=== PATIENT | female | born 1940 | race African-American/Black ===

== ENCOUNTER 2023-05-18 08:13 | Emergency (ER) | payer MEDICARE, SELFPAY ==
[2023-05-18 08:24] VITALS: BP 167/63; PULSE 75; RESP 18; TEMP 36.1; O2SAT 98; BMI 23.2
--- NOTE | 2023-05-18 08:45 | ED.GENADULT ---
HPI - General Adult General Chief complaint: General Medical Stated complaint: High BP Time Seen by Provider: 05/18/23 08:34 Source: patient, family, RN notes reviewed and old records reviewed Mode of arrival: ambulatory History of Present Illness HPI narrative: 82-year-old female with past medical history MS presenting to ED with daughter complaining of elevated BP sent home over the past 2 weeks. Patient denies history of hypertension or previously being prescribed antihypertensives. Reports bilateral LE paresthesias and chronic visual changes suspected from her MS per patient. Denies headache, visual loss, CP/SOB, new or worsening pedal edema, recent illness Related Data Previous Rx's Medication Instructions Recorded amlodipine 2.5 mg tablet (Norvasc) 2.5 mg PO DAILY #30 tabs 05/18/23 Allergies Allergy/AdvReac Type Severity Reaction Status Date / Time acetaminophen [Tylenol] Allergy Unknown Unknown Verified 05/18/23 08:23 shellfish derived Allergy Anaphylaxis Verified 05/18/23 08:23 Compazine Allergy Unknown Unknown Uncoded 05/18/23 08:23 Review of Systems Review of Systems: Constitutional: No Fever, No Chills ENT/Mouth: +acute on chronic visual changes, No Ear Pain, No sore throat, No Rhinorrhea, No Swallowing Difficulty Cardiovascular: No Chest Pain, No SOB Respiratory: No Cough, No Sputum, No Wheezing Gastrointestinal: No Nausea, No Vomiting, No Diarrhea, No Constipation, No Abdominal pain Genitourinary: No Dysuria, No Urinary Frequency, No Hematuria Musculoskeletal: No joint pain, No Myalgias, No Joint Swelling Skin: No Skin Lesions, No rash Neuro: No Weakness, No Numbness, +Paresthesias Yes all other systems are reviewed and are negative Constitutional: Constitutional: Reports as per HPI Neurologic: Denies Abnormal speech present [facility] Past Medical History Attestation statement: The following information was validated with the patient. Source: old records reviewed Physical Exam ED Vital Signs: Vital Signs - 24 hr 05/18/23 08:24 05/18/23 11:14 05/18/23 13:04 Temperature 97.0 F Pulse Rate 75 60 65 Respiratory Rate 18 14 18 Blood Pressure 167/63 H 152/76 H 176/72 H Pulse Oximetry 98 100 Oxygen Delivery Method Room Air Room Air BMI result Body Mass Index 23.2 Const General: cooperative, healthy appearing and no acute distress Orientation/consciousness: patient oriented x3 Limitations: no limitations HENMT Head: Yes normal to inspection and Yes atraumatic Ears: hearing grossly normal bilaterally General nose exam: Normal external nose present Face and sinus: Yes normal facial exam Eyes General: appearance normal, both eyes and all related structures Pupils: Equal, round and reactive pupils present EOM: EOMs intact bilaterally Neck Neck: Yes normal visual inspection and Yes no meningeal signs Resp Effort & Inspection: normal respiratory effort and no respiratory distress Auscultation: clear to auscultation bilaterally Cardio Rate: regular rate Heart sounds: S1 normal heart sound present and S2 normal heart sound present GI Inspection: Yes normal to inspection Palpation (GI): Soft to palpation, nontender, no guarding and not rigid Skin Rashes: no rashes Wounds: no wounds Neuro General: patient oriented x3, tone normal, moves all extremities, no meningeal signs, no focal motor deficits and CN's II-XI intact bilaterally Cranial nerves: Yes CN's II-XII intact bilaterally and Yes Equal, round and reactive pupils present Cognition (Neuro): normal cognition Speech: No Abnormal speech present Gait exam (Neuro): Normal gait present Motor exam (neuro): 5/5 motor strength present throughout Extrem Other: 1+ bilateral LE pitting edema Course Course Course Narrative: -1156-chronic anemia, improved from priors. Labs otherwise reassuring. Troponin negative. BNP 170, no priors to compare. > most recent blood pressure 176/72 > discussed with patient and family at bedside that the emergency room initiating blood pressure medications is not ideal and should have close follow-up with PCP. However with shared decision making family and patient would like to be started on low-dose of blood pressure medication today due to their concerns and will call PCP for follow-up. Will start patient on low-dose, 2.5 mg of Norvasc daily. Discussed close blood pressure monitoring Results discussed with patient including worrisome signs and symptoms and strict return precautions, and when to return to the emergency department. They verbalized understanding and feel safe for discharge at this time. Medical Decision Making Medical Decision Making [facility] Narrative: 82-year-old female with past medical history MS presenting to ED with daughter complaining of elevated BP sent home over the past 2 weeks. On exam mildly hypertensive 167/63 in triage, NAD, nontoxic appearing, 1+ bilateral LE pitting edema, lungs CTA, no focal neuro deficits. Concern for chronic hypertension. Rule out ACS. Low suspicion for ICH/hemorrhage or CVA/TIA Plan: EKG, labs, repeat monitor blood pressure Please refer to course for remaining clinical decision making, interpretation of labs/imaging results, and discussions with consultants and/or family members. Differential Diagnosis Differential Diagnoses: The differential diagnosis associated with the presentation includes As above Admission/Observation Consideration of admission/observation: Escalation of care including admission/observation considered Lab Data MDM Lab Attestation statement: I reviewed the patient's lab results. 05/18/23 10:41 05/18/23 10:41 Labs: Lab Results 05/18/23 Range/Units 10:41 WBC 5.0 (4.8-10.8) X10*3/uL RBC 3.44 L D (4.20-5.50) X10*6/uL Hgb 10.5 L D (12.0-16.0) g/dl Hct 31.6 L D (37.0-47.0) % MCV 91.9 (80.0-98.0) fL MCH 30.5 (27.0-33.0) pg MCHC 33.2 (31.0-35.0) g/dl RDW 14.9 (11.0-16.0) % Plt Count 248 D (160-400) X10*3/uL MPV 10.0 (9.4-12.3) fL Immature Gran % (Auto) 0.2 (0.0-0.4) % Neut % (Auto) 63.3 (45-73) % Lymph % (Auto) 21.4 (20-40) % Anderson % (Auto) 8.5 (2-11) % Eos % (Auto) 6.0 H (0-4) % Baso % (Auto) 0.6 (0-2) % Lymph # (Auto) 1.1 L (1.2-4.9) X10*3/uL Anderson # (Auto) 0.4 (0.1-1.2) X10*3/uL Eos # (Auto) 0.3 (0.0-0.4) X10*3/uL Baso # (Auto) 0.0 (0.0-0.2) X10*3/uL Abs Immat Gran (auto) 0.01 (0.00-0.03) X10*3/uL Absolute Neuts (auto) 3.2 (2.0-8.3) x10*3/uL Absolute Nucleated RBC 0.000 (0.0-0.012) X10*3/uL Nucleated RBC % (auto) 0.0 (0.0-0.2) /100WBC PT 12.0 (11.1-13.3) SEC INR 1.0 (0.9-1.1) Sodium 141 (135-145) mmol/L Potassium 4.3 (3.3-5.1) mmol/L Chloride 109 H (96-108) mmol/L Carbon Dioxide 26 (22-29) mmol/L Anion Gap 10 L (12-20) BUN 20 H (9-16) mg/dL Creatinine 0.87 (0.5-1.4) mg/dL Estim Creat Clear Calc 48.3 Estimated GFR > 60 Random Glucose 100 (60-115) mg/dL Calcium 8.6 (8.4-10.2) mg/dL Magnesium 2.1 (1.6-2.6) mg/dL Total Bilirubin 0.7 (0.0-1.0) mg/dL Direct Bilirubin 0.3 (0.0-0.5) mg/dL AST 20 (5-31) U/L ALT 12 (0-31) U/L Alkaline Phosphatase 120 H (39-117) U/L Troponin I High Sens < 2.7 (<3.5-17.0) ng/L B-Natriuretic Peptide 170 H (<100) pg/mL Total Protein 5.8 L (6.5-8.0) g/dL Albumin 3.4 L (3.5-5.0) g/dL Independent Interpretation I performed an independent interpretation of an: EKG Radiology Impression Discussion of test interpretation with radiology: I have reviewed the radiologist's reading. External Record Review External record reviewed: Inpatient record, Office record, Outpatient record, Prior outpatient labs, Prior outpatient radiology, Primary care record and Outside ED record Tests considered The following testing was considered but not selected: Head CT considered however not deemed necessary at this time without headache or neuro deficits Chronic Conditions Patient?s care impacted by: Other (MS) Discharge Plan Discharge Clinical Impression: HTN (hypertension) Patient Disposition: Home, Self-Care Instructions: Hypertension (ED) Additional Instructions: Your blood work was reassuring. Her blood pressure is elevated, YOU NEED TO HAVE CLOSE FOLLOW-UP WITH YOUR PRIMARY CARE DOCTOR Norvasc is a blood pressure medication, take once daily as prescribed Please monitor your blood pressure closely at home If he developed any chest pain, shortness of breath, lightheadedness/dizziness, or passing-out episodes return to the ED immediately Prescriptions: New amlodipine [Norvasc] 2.5 mg tablet 2.5 mg PO DAILY Qty: 30 0RF Referrals: Physician,Unknown J [Primary Care Provider] - 3 days Interventions: ED Discharge Assessment Last Done: 05/18/23 13:03 Discharge Date/Time: 05/18/23 13:04
--- NOTE | 2023-05-18 08:53 | ECG_ITS ---
Test Reason : HTN Blood Pressure : / mmHG Vent. Rate : 060 BPM Atrial Rate : 060 BPM P-R Int : 136 ms QRS Dur : 068 ms QT Int : 412 ms P-R-T Axes : 072 -15 008 degrees QTc Int : 412 ms Baseline artifact Normal sinus rhythm Low voltage QRS Borderline ECG No previous ECGs available Referred By: Marion Tobin Electronically Signed By:CHICO YING MD
[2023-05-18 10:50] LABS: MANUAL DIFF FLAG NO
[2023-05-18 10:52] LABS: Basophils Percent Auto 0.6 % (0-2); Eosinophils Absolute Auto 0.3 X10*3/uL (0.0-0.4); Hematocrit 31.6 % (37.0-47.0); Hemoglobin 10.5 g/dl (12.0-16.0); Imm Gran Abs Auto 0.01 X10*3/uL (0.00-0.03); Imm Gran Pct Auto 0.2 % (0.0-0.4); Lymphocytes Absolute Auto 1.1 X10*3/uL (1.2-4.9); Lymphocytes Percent Auto 21.4 % (20-40); Mean Corpuscular HGB Conc 33.2 g/dl (31.0-35.0); Mean Corpuscular Hemoglobin 30.5 pg (27.0-33.0); Mean Corpuscular Volume 91.9 fL (80.0-98.0); Monocytes Absolute Auto 0.4 X10*3/uL (0.1-1.2); Monocytes Percent Auto 8.5 % (2-11); Neutrophils Absolute Auto 3.2 x10*3/uL (2.0-8.3); Neutrophils Percent Auto 63.3 % (45-73); Platelet Count 248 X10*3/uL (160-400); Red Blood Count 3.44 X10*6/uL (4.20-5.50); Red Cell Distribution Width 14.9 % (11.0-16.0)
[2023-05-18 11:14] VITALS: BP 152/76; PULSE 60; RESP 14; O2SAT 100
[2023-05-18 11:20] LABS: Alanine Aminotransferase 12 U/L (0-31); Albumin Level 3.4 g/dL (3.5-5.0); Alkaline Phosphatase 120 U/L (39-117); Anion Gap 10 (12-20); Aspartate Amino Transferase 20 U/L (5-31); Bilirubin Direct 0.3 mg/dL (0.0-0.5); Bilirubin Total 0.7 mg/dL (0.0-1.0); Blood Urea Nitrogen 20 mg/dL (9-16); Calcium 8.6 mg/dL (8.4-10.2); Carbon Dioxide 26 mmol/L (22-29); Chloride 109 mmol/L (96-108); Creatinine Clr Calc Pharmacy 48.3; Estimated Glomerular Filt Rate > 60; Glucose Random 100 mg/dL (60-115); Magnesium 2.1 mg/dL (1.6-2.6); Potassium 4.3 mmol/L (3.3-5.1); Sodium 141 mmol/L (135-145); Total Protein 5.8 g/dL (6.5-8.0)
[2023-05-18 11:23] LABS: Troponin-I High Sensitivity < 2.7 ng/L (<3.5-17.0)
[2023-05-18 11:24] LABS: B Type Natriuretic Peptide 170 pg/mL (<100)
[2023-05-18 13:04] VITALS: BP 176/72; PULSE 65; RESP 18
== END 2023-05-18 13:04 | disposition home or self-care (01) ==
PROVIDERS: Physician Assistant; Emergency Provider Emergency Medicine Emergency Medical Services
DX: I10 Essential (primary) hypertension (principal); R20.2 Paresthesia of skin; R60.0 Localized edema; G35 Multiple sclerosis
CPT/HCPCS: 36415; 80048; 80076; 83735; 83880; 84484; 85025; 85610; 93005; 99284

== ENCOUNTER → 2023-05-18 08:53 | Outpatient (BNV) | payer MEDICARE, SELFPAY | PROVIDERS: Emergency Provider Emergency Medicine Emergency Medical Services; Visit Provider Internal Medicine Cardiovascular Disease | DX: I10 Essential (primary) hypertension (principal) | CPT/HCPCS: 93010 ==

== ENCOUNTER 2023-07-05 15:07 | Outpatient (REF) | payer MEDICARE, OTHER, SELFPAY | END 2023-07-05 15:08 | disposition home or self-care (01) | LOC: HO.SH 15:07 | PROVIDERS: PCP Internal Medicine; Visit Provider Physician Assistant Medical | DX: Z01.118 Encounter for examination of ears and hearing with other abnormal findings (principal); H61.23 Impacted cerumen, bilateral | CPT/HCPCS: 92567 ==

== ENCOUNTER 2023-08-10 08:32 | Outpatient (REF) | payer MEDICARE, OTHER, SELFPAY | END 2023-08-10 08:33 | disposition home or self-care (01) | LOC: HO.SH 08:32 | PROVIDERS: PCP Internal Medicine; Visit Provider Physician Assistant Medical | DX: Z01.10 Encounter for examination of ears and hearing without abnormal findings (principal); H90.3 Sensorineural hearing loss, bilateral | CPT/HCPCS: 92557; 92567 ==

== ENCOUNTER 2023-11-16 14:09 | Outpatient (REF) | payer MEDICARE, OTHER, SELFPAY ==
--- NOTE | 2023-12-20 13:49 | MHC.AU.HA1 ---
Hearing Aid Evaluation Date of Visit: 11/16/23 Printed Circuit Designer Used: Historical Information: Description of Hearing: Normal to moderate sensorineural hearing loss bilaterally Summary: Deloris is here for hearing aid discussion after seeing Dr Gonzalez for asymmetric hearing and receiving medical clearance for amplification. She is very motivated to pursue hearing aids as she finds herself asking people to repeat things and recalls the difficulties her mother faced with hearing aids later in life, she wishes to take a proactive approach. Discussed styles and technologies, Deloris selected Oticon Intent 2 miniRITE R. She was not able to decide on color in the office, opted to take the brochure home to show her niece and will call to let me know what color she would like to order. Hearing Aid Prescription: Based on the individual?s shared listening needs, communication environments, dexterity, desire for connectivity, and personal preferences, the following prescription for amplification has been made: Right ear: Make, Model, Color: Oticon Intent 2 miniRITE R Battery Size: Rechargeable Rail Car Repairer/Slim Tube: 2 85g Type of Earmold/Dome/CShell/SlimTip: 6mm dbl whittington Left ear: Left ear prescription to be same as Right Hearing Aid above: Make, Model, Color: Oticon Intent 2 miniRITE R Battery Size: Rechargeable Rail Car Repairer/Slim Tube: 2 85g Type of Earmold/Dome/CShell/SlimTip: 6mm dbl whittington Accessories/Assistive Technology Recommended: Welder Apprentice Arc Plan of Care: Patient wishes to purchase hearing aids as prescribed Action Taken/Action Needed: Hearing Instrument Fitting to be scheduled when materials arrive Comments: Will order aids once patient calls with color decision Primary Diagnosis: H90.3 Bilateral Sensorineural Hearing Loss Signature: Provider: Domonique Temple, CCC-A
== END 2023-11-16 14:10 | disposition home or self-care (01) ==
LOC: HO.HAP 14:09
PROVIDERS: Visit Provider Internal Medicine
DX: Z46.1 Encounter for fitting and adjustment of hearing aid (principal); H90.3 Sensorineural hearing loss, bilateral
CPT/HCPCS: 92590

== ENCOUNTER 2025-02-26 09:39 | Outpatient (AMB) | payer MEDICARE, OTHER, SELFPAY ==
--- OUTSIDE RECORDS SUMMARY | 2024-03-04 15:05 | XMS_ITS | Encounter Summary ---
Author Organization [facility] [place] [address] Care Team Providers Care Designer And Patternmaker Name Role Phone Jorge Sage Primary Care Provider [phone] Encounter Details Date Type Department Care Team (Late st Contact Info) Description 03/04/2024 3:05 PM EDT Hospital Encounter TH HISTORIC ENCOUNTERS EASTERN CONVERSION ONLY Alexi Davidson MD [address] [place] [phone] Social History Tobacco Use Types Packs/Day [...] for your loved ones. For example, child and adolescent psychiatrist or elderly care for an older adult? [...] Care Team (Late st Contact Info) Description 03/05/2025 2:30 PM EDT Office Visit [facility] Hematology Oncology [address] [place] [phone] Alexi Davidson MD [address] [place] [address] 07/08/2025 10:45 AM EST Office Visit Adult [address] [address] Jorge Sage PA [address] [place] [address] documented as of this encounter Procedures Procedure [...] documented as of this encounter Care Teams Designer And Patternmaker Relationship Specialty Start Date End Date Jorge Sage PA PCP - General Internal Medicine 07/26/20 06/05/24 documented as of this encounter
--- OUTSIDE RECORDS SUMMARY | 2024-09-05 10:15 | XMS_ITS ---
Author Organization [facility] Address [address] [facility] [address] [place] [address] Care Team Providers Care Blood Bank Supervisor Name Role Phone Jorge Al Primary Care Provider Unavail TIFFANY Cannon Unavailable [phone] REASON FOR VISIT 3-4 month Encounters Encounter Location Date Provider Diagnosis [facility] [address] [facility] [address] [place] [address] 09/05/2024 TIFFANY GORDILLO Plan Of Treatment Next Appt Details Provider Name:TIFFANY GORDILLO, 06/08/2025 11:00:00 AM, [address] [facility] [address], [place], [address], Progress Notes * Daphne MESA:1940 (84 yo F)Acc No.[id number]:09/05/2024 Progress Note Patient: Deloris BULLOCK Provider: Carmelita Gordillo DPM :1940 A ge:83 Y S ex:Female Date:09/05/2024 Address:[id number] Pcp:Jorge Al Subjective: * Chief Complaints: * 1 . 3-4 month. * Medical History: Objective: * Vitals: Assessment: Plan: * Treatment: * Billing Information: * Visit Code: * Procedure Codes: * Electronic signature of LORAINE GORDILLO D.P.M on 02/26/2025 at 10:42 AM EDT Sign off status: Pending * Provider: Carmelita Gordillo DPM Date: 0 09/05/2024 Generated for Reuben vaughn/Alysa/Ericka on: 1 10:42 AM EDT
--- OUTSIDE RECORDS SUMMARY | 2024-12-31 09:00 | XMS_ITS ---
Author Organization [facility] Address [address] [facility] [address] [place] [address] Care Team Providers Care Nursing Home Aide Name Role Phone Jorge Al Primary Care Provider Unavail TIFFANY Cannon Unavailable [phone] REASON FOR VISIT 3-4 month Encounters Encounter Location Date Provider Diagnosis [facility] [address] [facility] [address] [place] [address] 12/31/2024 TIFFANY GORDILLO Plan Of Treatment Next Appt Details Provider Name:TIFFANY GORDILLO, 06/08/2025 11:00:00 AM, [address] [facility] [address], [place], [address], Progress Notes * Daphne MESA:1940 (84 yo F)Acc No.[id number]:12/31/2024 Progress Note Patient: Deloris BULLOCK Provider: Carmelita Gordillo DPM :1940 A ge:84 Y S ex:Female Date:12/31/2024 Address:[id number] Pcp:Jorge Al Subjective: * Chief Complaints: * 1 . 3-4 month. * Medical History: Objective: * Vitals: Assessment: Plan: * Treatment: * Billing Information: * Visit Code: * Procedure Codes: * Electronic signature of LORAINE GORDILLO D.P.M on 02/26/2025 at 10:43 AM EDT Sign off status: Pending * Provider: Carmelita Gordillo DPM Date: 0 12/31/2024 Generated for Reuben vaughn/Alysa/Ericka on: 1 10:43 AM EDT
--- OUTSIDE RECORDS SUMMARY | 2025-02-25 14:00 | XMS_ITS | Encounter Summary ---
Author Organization [facility] Address [address] [place] [address] Care Team Providers Care Biochemistry Teacher Name Role Phone Jorge Sage Primary Care Provider [phone] [phone] Reason for Visit * Imaging (Routine) - Authorized Specialty Diagnoses / Procedures Referred By Jonathan hollis Referred To Contact Radiology Diagnoses Encounter for screening mammogram for breast cancer Procedures MG Mammo Digital Screening w Amrik bilrosario MG Mammo Digital Screening w Amrik Jorge Cowart PA [address] [place] [phone] Phone: tel: fax: [facility] Referral ID Status Reason Start Date Expiration Date V isits Requested Visits Authorized [id number] Authorized 03/13/2024 03/13/2025 1 1 Encounter Details Date Type Department Care Team (Latest Contact Info) Description 02/25/2025 2:00 PM EDT - 02/25/2025 11:59 PM EDT Hospital Encounter Radiology Department - [address] [phone] Encounter for screening mammogram for breast cancer Discharge Disposition: Home or Self Care Social History Tobacco Use Types Packs/Day Years [...] Record ed Within the last 3 months, ho w many times did you visit the [...] do you feel lonely or isolated from th ose around you? Never 09/30/2024 Food Risk [...] your loved ones. For example, child care giver or elderly care for an older adult? [...] on file documented as of this encounter Medications at Time of Discharge alendronate (FOSAMAX) 70 mg tablet Take 1 tablet (70 mg total) by mouth every 7 (seven) days. Take in the morning with a full glass of water, on an empty stomach, and do not take anything else by mouth or lie down for the next 30 min. 12 tablet 1 07/03/2024 amLODIPine (NORVASC) 2.5 mg tablet Take 1 tablet (2.5 mg total) by mouth 1 (one) time each day. 90 tablet 1 09/30/2024 ascorbic acid, vitamin C, 500 mg capsule Take by mouth daily. cholecalciferol (VITAMIN D-3) 125 mcg (5,000 unit) capsule Take 1 Tab by mouth daily. ciclopirox (LOPROX) 0.77 % gel Apply to toenails once daily 12/10/2018 cyanocobalamin (VIT B-12) 1,000 mcg tablet extended release ER tablet Take 1 Tab by mouth daily. EPINEPHrine (EpiPen 2-Louis) 0.3 mg/0.3 mL injection Inject 0.3 mg into the muscle as needed for Other (anaphylactic reaction). 2-pack. Fill with whichever brand is covered by insurance. 08/15/2017 EPINEPHrine (neffy) 1 mg/spray (0.1 mL) spray,non-aeroso l Administer 1 mg into affected nostril(s) if needed (anaphylaxis). 1 each 3 12/31/2024 ferrous sulfate 325 mg (65 mg iron) EC tablet Take 1 Tab by mouth daily. 10/16/2017 gabapentin (NEURONTIN) 300 mg capsule Take 1 capsule (300 mg total) by mouth 2 (two) times a day. 180 capsule 1 02/26/2025 hydrocortisone 0.5 % topical cream Apply small amount to affected area, bid 07/27/2023 oxyBUTYnin XL (DITROPAN-XL) 10 mg 24 hr tablet Take 15 mg by mouth. 01/17/2021 triamcinolone (KENALOG) 0.025 % cream Apply thin layer to affected area BID for 2 weeks then stop 30 g 09/30/2024 gabapentin (NEURONTIN) 300 mg capsule Take 1 capsule (300 mg total) by mouth 2 (two) times a day. 180 capsule 1 02/17/2025 documented as of this encounter Discharge Disposition Disposition Code Departure Means Destination Home or Self Care documented in this encounter Plan of Treatment Upcoming Encounters Date Type Department Care Team (Late st Contact Info) Description 03/05/2025 2:30 PM EDT Office Visit [facility] Hematology Oncology [address] [place] [phone] Alexi Davidson MD [address] [place] [phone] 07/08/2025 10:45 AM EST Office Visit Adult Medicine [address] [phone] Jorge Sage PA [address] [place] [phone] Pending Results Name Type Priority Associated Diagnoses Date /Time MG Mammo Digital Screening w Amrik bilat Imaging Routine Encounter for screening mammogram for breast cancer 02/25/2025 2:15 PM EDT Scheduled Orders Name Type Priority Associated Diagnoses Orde r Schedule MG Mammo Digital Screening w Amrik bilat Imaging Routine Encounter for screening mammogram for breast cancer Once for 1 Occurrences starting 02/25/2025 until 02/25/2025 documented as of this encounter Visit Diagnoses Diagnosis Encounter for screening mammogram for breast cancer documented in this encounter Additional Health Concerns Assessment Noted Time PHQ-9 Depression Total Score: 0 10/01/19 9:51 AM EDT A fall risk assessment has been complete d for the patient 09/30/2024 9:51 AM EDT documented as of this encounter Care Teams Biochemistry Teacher Relationship Specialty Start Date End Date Jorge Sage, PA [address] [place] [address] PCP - General Internal Medicine 06/06/24 documented as of this encounter
--- NOTE | 2025-02-26 09:58 | MHC.OFFVIS ---
Intake Visit Reasons: sooner appt pain Allergies acetaminophen (Tylenol) Allergy (Unknown, Verified 05/18/23 08:23) Unknown shellfish derived Allergy (Verified 05/18/23 08:23) Anaphylaxis Compazine Allergy (Unknown, Uncoded 05/18/23 08:23) Unknown HPI Comments Details: 84 y/o woman with chronic multiple sclerosis, in the past treated with Copaxone that was stopped due to lack of any significant progression. She is presenting with fluctuating neurological symptoms potentially related to Multiple Sclerosis. Symptoms have reportedly worsened over the past six to eight weeks, presenting as increased weakness in the left leg, fractured in the past, and bilateral instability. There is a connection between these symptoms and stress due to family health issues, as well as aging. Notably, she recently experienced unexpected familial loss. The patient reports episodes of sudden weakness that require her to sit or lie down for brief periods. Walking on inclines or without a walking aid is challenging, marking mechanical instability of the left knee as a concern. She is worried about potential neurological issues due to these symptoms. The patient continues to manage urinary incontinence with medication, requiring a new prescription. Her iron supplementation leads to gastrointestinal side effects, alternating between taking gel capsules twice weekly and using stool softeners. Care is taken to avoid activities that may destabilize her balance. [facility] Medical History (Updated 02/26/25 @ 10:09 by Fortunato Muller MD) Depression Insomnia Dysthymia Thoracic neuralgia Peripheral neuropathy Chronic fatigue syndrome Spastic bladder Multiple sclerosis Family History (Updated 12/19/24 @ 08:26 by Jeaneth Brantley CMA) Sister Myasthenia gravis Review of Systems Const Details: - Neurological: Reports weakness and instability in the left leg; denies headaches or high temperatures. - Musculoskeletal: Reports mechanical instability of knees, particularly after activities. - Gastrointestinal: Reports constipation with iron supplementation; diarrhea an issue without supplementation. - Genitourinary: Reports urinary incontinence. - Psychological: Reports stress-related symptom exacerbation; denies depression despite familial stress. Physical Exam Neuro Other: Mental Status: Alert and oriented to person, place, and time. Normal attention. Normal spontaneous speech, fluency, and comprehension. No obvious issues with mood and memory. Affect is appropriate. Cranial Nerves: CN II: Visual madsen full to confrontation, visual acuity intact. CN III, IV, : Pupils equal, round, reactive to light and accommodation. Extraocular movements are normal. CN V: Facial sensation is normal. CN VII: Facial movements symmetrical. CN VIII: Hearing intact to bedside conversation is normal. CN IX, X: Palate elevates symmetrically. CN XI: Shoulder shrug and head turn symmetrical. CN XII: Tongue midline without atrophy or fasciculations. Gait: Cautious gait. DTRs are trace in right leg, absent in left. Extrapyramidal: Full facial expressions and blinking. No rigidity. Movements are appropriate with no tremor or abnormality. Speech: Normal; no dysarthria or tremor. Assessment & Plan Assessment & Plan (1) Multiple sclerosis: Comment: MRI brain [facility] at [facility] in October 2023: Mod WM disease suggestive of MS. No DWI or melinda signal. Couple of tiny falcine meningiomas MRI T spine at [facility] in Jun 2015 [facility]: [place] NCV/EMG 02/24/15 MILD AXONAL SENSORY AND MOTOR PERIPHERAL NEUROPATHY. Multiple MRIs of brain in since 2001: MS MRI brain at [facility] in September of 2013: MS. Code(s): G35 - Multiple sclerosis Category: Medical (2) Spastic bladder: Code(s): N32.89 - Other specified disorders of bladder Category: Medical (3) Fatigue: Code(s): R53.83 - Other fatigue Category: Medical Qualifiers: Fatigue type: other Qualified Code(s): R53.83 - Other fatigue Plan Impression: a: Chornic relatively stable MS b: Gait disorder, partly due to MS c: Spastic bladder Rec: a: Use caution and consider using a cane b: Continue oxybutynin 15mg at night During the visit, we discussed the patient's Multiple Sclerosis exacerbation and stress as possible correlates, particularly given recent familial stressors. Mechanical instability of the left knee was addressed, recommending the use of a walking aid. For urinary incontinence, a new prescription was arranged through [facility]. We reviewed the gastrointestinal side effects of iron supplementation and settled on using gel formulations twice weekly. We also discussed the significance of stress management strategies in mitigating exacerbations of symptoms. Medications: New oxybutynin chloride ER 15 mg PO DAILY 90 tabs 1RF Coding Level of Care Code Est Pt Level 4 (07898) Diagnoses Multiple sclerosis G35 Spastic bladder N32.89 Other fatigue R53.83 Fatigue type: other
--- OUTSIDE RECORDS SUMMARY | 2025-02-26 10:42 | XMS_ITS | Encounter Summary ---
Author Organization [facility] Address [address] [place] [address] Care Team Providers Care Fish Liver Sorter Name Role Phone Angus Nevarez MD Primary Care Provider + [phone] Jorge Sage PA-C Primary Care Provider [phone] Encounter Details Date Type Department Care Team Description 11/10/2013 Release of Information Medical Records [address] [place] [address] Abstract, Provider Social History Tobacco Use Types Packs/Day Years Used Date Smoking Tobacco: Former Cigarettes Q uit: 07/26/1970 Alcohol Use Standard Drinks/Week Comments No 0 (1 standard drink = 0.6 oz pur e alcohol) Sex Assigned at Date Recorded Not on file Job Start Date Occupation Industry Not on file Not on file Not on file documented as of this encounter Plan of Treatment Not on file documented as of this encounter Visit Diagnoses Not on filedocumented in this encounter Additional Health Concerns Infection Onset Date Last Indicated Resolved Time COVID-19 Comment:Tested positive on 06/0706/07/2022 06/12/2022 08/24/19 23 10:28 AM EDT documented as of this encounter Care Teams Fish Liver Sorter Relationship Specialty Start Date End Date Angus Nevarez MD [address] [place] [address] PCP - General 02/17/1997 07/25/20 Jorge Sage PA-C [address] [place] [address] PCP - General Internal Medicine 07/26/20 documented as of this encounter
--- OUTSIDE RECORDS SUMMARY | 2025-02-26 10:42 | XMS_ITS | Encounter Summary ---
Author Organization [facility] Address [address] [place] [address] Care Team Providers Care Cannon Pinion Adjuster Name Role Phone Jorge Sage PA-C Primary Care Provider +1 [phone] Reason for Visit * Reason Onset Date Comments REFERRAL 10/17/2021 Encounter Details Date Type Department Care Team Description 10/17/2021 Telephone OBGYN - [place] [address] [place] [address] Isidra Mcfadden MD [address] [place] [address] REFERRAL Social History Tobacco Use Types Packs/Day Years Used Date Smoking Tobacco: Former Cigarettes 0.8 10 0 1960 - 07/26/1970 Smokeless Tobacco: Never Alcohol Use Standard Drinks/Week Comments No 0 (1 standard drink = 0.6 oz pur e alcohol) Sex Assigned at Date Recorded Not on file Job Start Date Occupation Industry Not on file Not on file Not on file COVID-19 Exposure Response Date Recorded In the last 10 days, have yo u been in contact with someone who was confirmed or suspected to have Coronavirus/COVID-19? No / Unsure 10/10/2021 9:04 AM EDT documented as of this encounter Miscellaneous Notes * Telephone Encounter - Jorge Sage PA-C - 10/17/2021 4:04 PM EDT Noted. * Telephone Encounter - Sheba Russo - 10/17/2021 3:39 PM EDT We have attempted to contact the patient in regards to a referral placed on your patient's behalf. The patient has not responded to our phone calls or letter that was sent to her mailing address. Dueto lack of response the order will be closed documented in this encounter Plan of Treatment Not on file documented as of this encounter Visit Diagnoses Not on filedocumented in this encounter Additional Health Concerns Infection Onset Date Last Indicated Resolved Time COVID-19 Comment:Tested positive on 06/0706/07/2022 06/12/2022 08/24/19 10:28 AM EDT documented as of this encounter Care Teams Cannon Pinion Adjuster Relationship Specialty Start Date End Date Jorge Sage PA-C [address] [place] [address] PCP - General Internal Medicine 07/26/20 documented as of this encounter
--- OUTSIDE RECORDS SUMMARY | 2025-02-26 10:42 | XMS_ITS | Encounter Summary ---
Author Organization [facility] Address [address] [place] [address] Care Team Providers Care Drag Out Man Name Role Phone Angus Nevarez MD Primary Care Provider + [phone] Jorge Sage PA-C Primary Care Provider +[phone] Encounter Details Date Type Department Care Team Description 01/19/2020 [facility] Medical Records [address] [place] [address] Abstract, Provider Social History Tobacco Use Types [...] documented as of this encounter Care Teams Drag Out Man Relationship Specialty Start Date End Date Angus Nevarez MD [address] [place] [address] PCP - General 02/17/1997 07/25/20 Jorge Sage PA-C [address] [place] [address] PCP - General Internal Medicine 07/26/20 documented as of this encounter
--- OUTSIDE RECORDS SUMMARY | 2025-02-26 10:42 | XMS_ITS | Encounter Summary ---
Author Organization [facility] Address [address] [place] [address] Care Team Providers Care Rebrander Name Role Phone Jorge Sage PA-C Primary Care Provider +1 [phone] Encounter Details Date Type Department Care Team Description 12/18/2020 Hospital Medical Records [address] [place] [address] [facility] Social History Tobacco Use Types Packs/Day Years [...] Exposure Response Date Recorded In the last month, have you been in contact with someone who was confirmed or suspected to have Coronavirus / COVID-19? No / Unsure 11/26/2020 8:21 AM EDT documented as of this encounter Plan of Treatment Not on file documented as of this encounter Visit Diagnoses Not on filedocumented in this encounter Additional Health Concerns Infection Onset Date Last Indicated Resolved Time COVID-19 Comment:Tested positive on 06/0706/07/2022 06/12/2022 08/24/19 23 10:28 AM EDT documented as of this encounter Care Teams Rebrander Relationship Specialty Start Date End Date Jorge Sage PA-C [address] [place] [address] PCP - General Internal Medicine 07/26/20 documented as of this encounter
--- OUTSIDE RECORDS SUMMARY | 2025-02-26 10:42 | XMS_ITS | Encounter Summary ---
Author Organization [facility] Address [address] [place] [address] Care Team Providers Care Home Energy Consultant Supervisor Name Role Phone Jorge Sage PA-C Primary Care Provider [phone] Encounter Details Date Type Department Care Team Description 12/12/2020 Hospital Medical Records [address] [place] [address] [facility] Social History Tobacco Use Types [...] documented as of this encounter Care Teams Home Energy Consultant Supervisor Relationship Specialty Start Date End Date Jorge Sage PA-C [address] [place] [address] PCP - General Internal Medicine 07/26/20 documented as of this encounter
--- OUTSIDE RECORDS SUMMARY | 2025-02-26 10:42 | XMS_ITS | Encounter Summary ---
Author Organization [facility] Address [address] [place] [address] Care Team Providers Care Sccm Administrator Name Role Phone Jorge Sage PA-C Primary Care Provider +1 -[phone] Encounter Details Date Type Department Care Team Description 08/27/2021 Hospital Medical Records [address] [place] [address] Angela Samson PA Social History Tobacco Use Types Packs/Day Years [...] documented as of this encounter Care Teams Sccm Administrator Relationship Specialty Start Date End Date Jorge Sage PA-C [address] [place], [place] [phone] PCP - General Internal Medicine 07/26/20 documented as of this encounter
--- OUTSIDE RECORDS SUMMARY | 2025-02-26 10:42 | XMS_ITS | Encounter Summary ---
Author Organization [facility] Address [address] [place] [address] Care Team Providers Care Laborer Prestressed Concrete Name Role Phone Jorge Sage PA-C Primary Care Provider +1 -[phone] Encounter Details Date Type Department Care Team Description 12/15/2020 Hospital Medical Records [address] [place] [address] [facility] Social History Tobacco Use Types Packs/Day Years [...] documented as of this encounter Care Teams Laborer Prestressed Concrete Relationship Specialty Start Date End Date Jorge Sage PA-C [address] [place] [address] PCP - General Internal Medicine 07/26/20 documented as of this encounter
--- OUTSIDE RECORDS SUMMARY | 2025-02-26 10:42 | XMS_ITS | Encounter Summary ---
Author Organization [facility] Address [address] [place] [address] Care Team Providers Care Worm Packer Name Role Phone Angus Nevarez MD Primary Care Provider [phone] Jorge Sage PA-C Primary Care Provider [phone] Encounter Details Date Type Department Care Team Description 04/07/2014 Environmental Remediation Engineer Report Medical Records [address] [place] [address] Fortunato Muller MD Social History Tobacco Use Types Packs/Day Years Used Date Smoking Tobacco: Former Cigarettes Q uit: 07/26/1970 Smokeless Tobacco: Never Alcohol Use Standard [...] documented as of this encounter Care Teams Worm Packer Relationship Specialty Start Date End Date Angus Nevarez MD [address] [place], [place] [id number] PCP - General 02/17/1997 07/25/20 Jorge Sage PA-C [address] [place] [address] PCP - General Internal Medicine 07/26/20 documented as of this encounter
--- OUTSIDE RECORDS SUMMARY | 2025-02-26 10:42 | XMS_ITS | Encounter Summary ---
Author Organization [facility] Address [address] [place] [address] Care Team Providers Care Cardiographer Name Role Phone Angus Nevarez MD Primary Care Provider + [phone] Jorge Sage PA-C Primary Care Provider [phone] Encounter Details Date Type Department Care Team Description 06/19/2016 Business Doc Medical Records [address] [place] [address] Abstract, Provider Social History Tobacco Use Types [...] documented as of this encounter Care Teams Cardiographer Relationship Specialty Start Date End Date Angus Nevarez MD [address] [place] [address] PCP - General 02/17/1997 07/25/20 Jorge Sage PA-C [address] [place] [address] PCP - General Internal Medicine 07/26/20 documented as of this encounter
--- OUTSIDE RECORDS SUMMARY | 2025-02-26 10:42 | XMS_ITS | Encounter Summary ---
Author Organization [facility] Address [address] [place] [address] Care Team Providers Care Truck Body Builder Name Role Phone Angus Nevarez MD Primary Care Provider [phone] Jorge Sage PA-C Primary Care Provider [phone] Encounter Details Date Type Department Care Team Description 03/15/2020 Neighborhood Worker Report Medical Records [address] [place] [address] Social History Tobacco Use Types Packs/Day Years [...] have Coronavirus / COVID-19? No / Unsure 02/18/2020 12:50 PM EDT documented as of this encounter Plan of Treatment Not on file documented as of this encounter Visit Diagnoses Not on filedocumented in this encounter Additional Health Concerns Infection Onset Date Last Indicated Resolved Time COVID-19 Comment:Tested positive on 06/0706/07/2022 06/12/2022 08/24/19 23 10:28 AM EDT documented as of this encounter Care Teams Truck Body Builder Relationship Specialty Start Date End Date Angus Nevarez MD [address] [place] [address] PCP - General 02/17/1997 07/25/20 Jorge Sage PA-C [address] [place] [address] PCP - General Internal Medicine 07/26/20 documented as of this encounter
--- OUTSIDE RECORDS SUMMARY | 2025-02-26 10:42 | XMS_ITS | Encounter Summary ---
Author Organization [facility] Address [address] [place] [address] Care Team Providers Care New Grad Rn Name Role Phone Angus Nevarez MD Primary Care Provider [phone] Jorge Sage PA-C Primary Care Provider Encounter Details Date Type Department Care Team Description 07/07/2014 Forensic Psychologist Report Medical Records [address] [place] [address] Fortunato Muller MD Social History Tobacco Use [...] documented as of this encounter Care Teams New Grad Rn Relationship Specialty Start Date End Date Angus Nevarez MD [address] [place], [place] [phone] PCP - General 02/17/1997 07/25/20 Jorge Sage PA-C [address] [place] [address] PCP - General Internal Medicine 07/26/20 documented as of this encounter
--- OUTSIDE RECORDS SUMMARY | 2025-02-26 10:42 | XMS_ITS | Encounter Summary ---
Author Organization [facility] Address [address] [place] [address] Care Team Providers Care Dinkey Engine Firer/Fireman Name Role Phone Jorge Sage PA-C Primary Care Provider [phone] Encounter Details Date Type Department Care Team Description 01/17/2021 Orders Only Adult Medicine [address] [address] Catarina Naranjo MD Social History Tobacco Use Types Packs/Day [...] have Coronavirus / COVID-19? No / Unsure 01/17/2021 10:47 AM EDT documented as of this encounter Plan of Treatment Not on file documented as of this encounter Visit Diagnoses Not on filedocumented in this encounter Additional Health Concerns Infection Onset Date Last Indicated Resolved Time COVID-19 Comment:Tested positive on 06/0706/07/2022 06/12/2022 08/24/19 10:28 AM EDT documented as of this encounter Care Teams Dinkey Engine Firer/Fireman Relationship Specialty Start Date End Date Jorge Sage PA-C [address] [place] [address] PCP - General Internal Medicine 07/26/20 documented as of this encounter
--- OUTSIDE RECORDS SUMMARY | 2025-02-26 10:42 | XMS_ITS | Encounter Summary ---
Author Organization [facility] Address [address] [place] [address] Care Team Providers Care Director Of Real Estate Name Role Phone Jorge Sage PA-C Primary Care Provider [phone] Encounter Details Date Type Department Care Team Description 12/18/2020 Hospital Medical Records [address] [place] [address] Jag Dorantes Social History Tobacco Use Types Packs/Day Years [...] documented as of this encounter Care Teams Director Of Real Estate Relationship Specialty Start Date End Date Jorge Sage PA-C [address] [place] [address] PCP - General Internal Medicine 07/26/20 documented as of this encounter
--- OUTSIDE RECORDS SUMMARY | 2025-02-26 10:42 | XMS_ITS | Encounter Summary ---
Author Organization [facility] Address [address] [place] [address] Care Team Providers Care Foreign Languages Professor Name Role Phone Angus Nevarez MD Primary Care Provider [phone] Jorge Sage PA-C Primary Care Provider Encounter Details Date Type Department Care Team Description 03/31/2015 Feed Manager Report Medical Records [address] [place] [address] Fortunato Muller MD Social History Tobacco Use [...] documented as of this encounter Care Teams Foreign Languages Professor Relationship Specialty Start Date End Date Angus Nevarez MD [address] [place], [place] [phone] PCP - General 02/17/1997 07/25/20 Jorge Sage PA-C [address] [place] [address] PCP - General Internal Medicine 07/26/20 documented as of this encounter
--- OUTSIDE RECORDS SUMMARY | 2025-02-26 10:42 | XMS_ITS | Encounter Summary ---
Author Organization [facility] Address [address] [place] [address] Care Team Providers Care Trans Router Name Role Phone Jorge Sage PA-C Primary Care Provider [phone] Encounter Details Date Type Department Care Team Description 02/04/2021 Home Health Certification Medical Records [address] [place] [address] [place] [employer] [address] [place] [address] [address] [place] [address] Social History Tobacco Use Types Packs/Day Years [...] documented as of this encounter Care Teams Trans Router Relationship Specialty Start Date End Date Jorge Sage PA-C [address] [place] [address] PCP - General Internal Medicine 07/26/20 documented as of this encounter
--- OUTSIDE RECORDS SUMMARY | 2025-02-26 10:42 | XMS_ITS | Encounter Summary ---
Author Organization [facility] Address [address] [place] [address] Care Team Providers Care Is Consultant Name Role Phone Angus Nevarez MD Primary Care Provider [phone] Jorge Sage PA-C Primary Care Provider [phone] Encounter Details Date Type Department Care Team Description 06/03/2013 Pasteurizing Supervisor Report Medical Records [address] [place] [address] Fortunato Muller MD Social History Tobacco Use [...] documented as of this encounter Care Teams Is Consultant Relationship Specialty Start Date End Date Angus Nevarez MD [address] [place], [place] [phone] PCP - General 02/17/1997 07/25/20 Jorge Sage PA-C [address] [place] [address] PCP - General Internal Medicine 07/26/20 documented as of this encounter
--- OUTSIDE RECORDS SUMMARY | 2025-02-26 10:42 | XMS_ITS | Encounter Summary ---
Author Organization [facility] Address [address] [place] [address] Care Team Providers Care Enamel Sprayer Name Role Phone Angus Nevarez MD Primary Care Provider + [phone] Jorge Sage PA-C Primary Care Provider [phone] Reason for Referral * Non GENEVIEVE (Routine) - Authorized/Booked Specialty Diagnoses / Procedures Referred By Jonathan hollis Referred To Contact Podiatry Diagnoses Foot pain, unspecified laterality Procedures REFERRAL TO PODIATRY Angus Nevarez MD [address] [place] [address] Sarah Gordillo DPMagalie [address] [place] [address] Referral ID Status Reason Start Date Expiration Date V isits Requested Visits Authorized [id number] Authorized/B ooked 07/02/2015 07/01/2016 1 1 Reason for Visit * Reason Onset Date Comments Water Meter Mechanic Feedback 07/02/2015 Podiatry Encounter Details Date Type Department Care Team Description 07/02/2015 Telephone Adult Medicine [address] [id number] Angus Nevarez MD [address] [place] [address] Water Meter Mechanic Feedback (Podiatry) Social History Tobacco Use Types Packs/Day Years Used Date Smoking Tobacco: Former Cigarettes Q uit: 07/26/1970 Smokeless Tobacco: Never Alcohol Use Standard Drinks/Week Comments No 0 (1 standard drink = 0.6 oz pur e alcohol) Sex Assigned at Date Recorded Not on file Job Start Date Occupation Industry Not on file Not on file Not on file documented as of this encounter Miscellaneous Notes * Telephone Encounter - Lior Salazar - 07/02/2015 4:28 PM EST Please review this patients new referral request. The referral has been pended. Please complete thefollowing: If approved> sign order If denied>please give instructions and route to your practice nursing pool. Practice nurse should inform referrals and the patient if denied. * Telephone Encounter - Joy Bah - 07/02/2015 4:16 PM EST Did you verify this is patients current insurance? YES Payor: [employer] / Plan: PPO $20 AND[place] [id number] / Product Type: PPO [id number] Effective 02/25/09: [employer] will not retro referral requests over 90 days. If request is for this please instruct patient to call the 800# on their insurance card to appeal. Do not submit a request. Referrals cannot be processed if the insurance is not accurate. If the insurance listed above in red is NO BILLING INFORMATION FOUND FOR THIS ENCOUTNER The patients correct insurance must be obtained and registered in [facility] or their referral can not be processed. Who is calling to request this referral? The patient If the caller is not the patient, what is their name? N/A FIRST and LAST NAME of SPECIALIST PATIENT is seeing: Sarah Salazar What specialty is this? Podiatry DIAGNOSIS Patient is being seen for (Not a body part or a procedure): left foot pain Have you seen this SPECIALIST for this PROBLEM/DX before?YES If YES, when:2013 Have you checked REVIEW or the APPT DESK to see if this referral has already been done or has visits left? YES Who referred the patient to this specialty? Angus Nevarez Is this visit:Initial Visit Address of Specialist: [address] [place] [address] Phone # of Specialist:[phone] Fax #: (if applicable):[phone] Does patient have an appointment scheduled?: NO Date of appointment- (including a retro-request): Is this appointment related to: Not MVA, WC or Surgery related documented in this encounter Plan of Treatment Not on file documented as of this encounter Visit Diagnoses Diagnosis Foot pain, unspecified laterality- Primary documented in this encounter Additional Health Concerns Infection Onset Date Last Indicated Resolved Time COVID-19 Comment:Tested positive on 06/0706/07/2022 06/12/2022 08/24/19 10:28 AM EDT documented as of this encounter Care Teams Enamel Sprayer Relationship Specialty Start Date End Date Angus Nevarez MD [address] [place] [address] PCP - General 02/17/1997 07/25/20 Jorge Sage PA-C [address] [place] [id number] PCP - General Internal Medicine 07/26/20 documented as of this encounter
--- OUTSIDE RECORDS SUMMARY | 2025-02-26 10:42 | XMS_ITS ---
Author Organization [facility] Care Team Providers Care Ferry Terminal Supervisor Name Role Phone Marshall Olivera Unavailable Unavailable Aracelis Miranda Unavailable Unavailable Samantha Cisneros Unavailable Unavailable Allergies and adverse reactions Code CodeSystem Substance Reaction Severity StartDate Concern Status Shellfish Derived Unknown 08/31/2021 act samuel 8704 RXNORM Prochlorperazine Unknown 08/31/2021 acti ve 161 RXNORM Acetaminophen Unknown 08/31/2021 active Care Team Name Role Address Phone Organization Dates Marshall Olivera PCP [address] [facility] [address], [place], [address], [place] (Office): : [facility] 08/31/2021 - 09/14/2021 Aracelis Miranda [address] [facility] [address], [place], [address], [place] (Office[place] : [facility] 08/31/2021 - 09/14/2021 Samantha Cisneros [address] [facility] [address], [place], [address], [place] (Office): [facility] 08/31/2021 - 09/14/2021 Immunizations Immunization Status Vaccine Details Vaccine Code CodeSystem Date Notes Influenza completed Influenza, split virus, trivalent, injectable, contains preservative 141 CVX created date: 09/01/2021 administere d date: 03/09/2021 TB 1 Step Mantoux (PPD) completed tuberculin skin test; unspecified formulation lotNumber: [id number] expiry: 10/27/2022 Mfg: Sanofi Pasteur Given 0.1 ml Left Forearm intradermally 98 CVX created date: 09/01/2021 consent date: 09/01/2021 administere d date: 09/01/2021 TB 2 Step Mantoux Skin Test completed tuberculin skin test; unspecified formulation lotNumber: [id number] expiry: 10/27/2022 Mfg: Sanofi Pasteur Given 0.1 ml Right Forearm intradermally Step 1 of Multi-step with next step required 98 CVX created date: 09/08/2021 consent date: 09/08/2021 administere d date: 09/08/2021 SARS-COV-2 (COVID-19) completed SARS-COV-2 (COVID-19) vaccine, mRNA, spike protein, LNP, preservative free, 30 mcg/0.3mL dose Step 1 of Multi-step with next step required 208 CVX created date: 09/01/2021 administere d date: 03/09/2021 SARS-COV-2 (COVID-19) completed SARS-COV-2 (COVID-19) vaccine, mRNA, spike protein, LNP, preservative free, 100 mcg/0.5mL dose or 50 mcg/0.25mL dose Step 2 of Multi-step with next step required 207 CVX created date: 09/01/2021 administere d date: 08/07/2020 SARS-COV-2 (COVID-19) completed SARS-COV-2 (COVID-19) vaccine, mRNA, spike protein, LNP, preservative free, 30 mcg/0.3mL dose, nadia-sucrose formulation Step 1 of Multi-step with next step required 217 CVX created date: 09/01/2021 administere d date: 07/09/2020 (PCV20)Pneumococc al Conjugate vaccine 20-valent completed Pneumococcal conjugate vaccine 20-valent (PCV20), polysaccharide [id number] conjugate, adjuvant, preservative free 216 CVX created date: 09/01/2021 administere d date: 06/25/2015 Mental Status Section Date Assessment Total Score Description 09/14/2021 BIMS 13 cognitively int act CAM 0 No delirium ind icated PHQ-9 00 09/04/2021 BIMS 12 moderate cognit samuel impairment CAM 0 No delirium ind icated PHQ-9 00 Problems Problem # Description Date of onset Resolved Date Code CodeSystem Concern Status 1 ACUTE KIDNEY FAILURE, UNSPECIFIED [address] active 2 AGE-RELATED OSTEOPOROSIS WITHOUT CURRENT PATHOLOGICAL FRACTURE [address] active 3 DORSALGIA, UNSPECIFIED [address] active 4 DYSPHAGIA, ORAL PHASE [address] active 5 HEMIPLEGIA, UNSPECIFIED AFFECTING LEFT NONDOMINANT SIDE [address] active 6 HISTORY OF FALLING [address] active 7 IRON DEFICIENCY ANEMIA, UNSPECIFIED [address] active 8 MAJOR DEPRESSIVE DISORDER, SINGLE EPISODE, UNSPECIFIED [address] active 9 MULTIPLE SCLEROSIS [address] active 10 ORTHOSTATIC HYPOTENSION [address] active 11 OTHER LACK OF COORDINATION [address] active 12 OVERACTIVE BLADDER [address] active 13 SEPSIS, UNSPECIFIED ORGANISM [address] active 14 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 [address] active 15 UNSPECIFIED OSTEOARTHRITIS, UNSPECIFIED SITE [address] active 16 UNSPECIFIED PROTEIN-CALORIE MALNUTRITION [address] active 17 URINARY TRACT INFECTION, SITE NOT SPECIFIED [address] active Reason for Referral No Reasons for Referral Entered Social History Social History Observation Description Start Date End Date Code Code System Current Smoking Status Tobacco smoking consumption unknown 720420070 SNOMED CT Sex Assigned At Female 1940 15042-6 [facility] Gender Identity Sexual Orientation Vital Signs Code Code System Vitals Name Values and Units Timing Information 8462-4 [facility] Blood Pressure-Diastolic Value=72 Un its=mmHg 09/14/2021 8480-6 [facility] Blood Pressure-Systolic Xiasj=302 Un its=mmHg 09/14/2021 8867-4 [facility] Heart rate Value=73.0 Units=/min 9279-1 [facility] Respiratory Rate Value=18.0 Units=/m in 09/14/2021 8310-5 [facility] Body Temperature Value=97.9 Units= F 09/14/2021 74968-9 [facility] O2 % BldC Oximetry Value=98.0 Units= % 09/14/2021 80189-4 [facility] Pain Level Value=0.0 09/14/2021 06978-9 [facility] Weight Irqlf=040.6 Units=Lbs 8302-2 [facility] Height Value=64.0 Units=Inches 08/31/2021
--- OUTSIDE RECORDS SUMMARY | 2025-02-26 10:42 | XMS_ITS | Clinical Summary ---
Author Organization [address] Address [address] [place] [address] [place] [address] Phone Care Team Providers Care Drier Feeder Name Role Phone Jorge Sage Primary Care Provider [phone] Allergies Active Allergy Reactions Criticality Noted Date Comments Acetaminophen 10/02/2007 Throat swells/ trouble breathing Other Medium 08/15/2017 Other Reaction(s): OTHER Lobster, shrimp throat swelling Rash and itch Ears blocked Prochlorperazine Anaphylaxis High 07/13/2005 Medications ascorbic acid, vitamin C, 500 mg capsule Take by mouth daily. Active cholecalciferol (VITAMIN D-3) 125 mcg (5,000 unit) capsule Take 1 Tab by mouth daily. Active ciclopirox (LOPROX) 0.77 % gel Apply to toenails once daily 12/11/19 19 Active cyanocobalamin (VIT B-12) 1,000 mcg tablet extended release ER tablet Take 1 Tab by mouth daily. Active hydrocortisone 0.5 % topical cream Apply small amount to affected area, bid 07/27/19 24 Active EPINEPHrine (EpiPen 2-Louis) 0.3 mg/0.3 mL injection Inject 0.3 mg into the muscle as needed for Other (anaphylactic reaction). 2-pack. Fill with whichever brand is covered by insurance. 08/16/19 18 Active ferrous sulfate 325 mg (65 mg iron) EC tablet Take 1 Tab by mouth daily. 10/17/19 18 Active oxyBUTYnin XL (DITROPAN-XL) 10 mg 24 hr tablet Take 15 mg by mouth. 01/18/20 21 Active alendronate (FOSAMAX) 70 mg tablet Take 1 tablet (70 mg total) by mouth every 7 (seven) days. Take in the morning with a full glass of water, on an empty stomach, and do not take anything else by mouth or lie down for the next 30 min. 12 tablet 1 07/03/19 25 Active amLODIPine (NORVASC) 2.5 mg tablet Take 1 tablet (2.5 mg total) by mouth 1 (one) time each day. 90 tablet 1 10/01/19 25 Active triamcinolone (KENALOG) 0.025 % cream Apply thin layer to affected area BID for 2 weeks then stop 30 g 10/01/19 25 Active EPINEPHrine (neffy) 1 mg/spray (0.1 mL) spray,non-aerosol Administer 1 mg into affected nostril(s) if needed (anaphylaxis). 1 each 3 01/01/20 25 Active gabapentin (NEURONTIN) 300 mg capsule Take 1 capsule (300 mg total) by mouth 2 (two) times a day. 180 capsule 1 02/27/20 25 Active ondansetron (ZOFRAN) 4 mg tablet Take 4 mg by mouth as needed. Discontinu ed(Therapy completed) gabapentin (NEURONTIN) 300 mg capsule TAKE 1 CAPSULE TWICE A DAY 08/02/19 24 Discontinu ed(Reorder ) modafiniL (PROVIGIL) 100 mg tablet Take 100 mg by mouth 2 times daily. Discontinu ed(Therapy completed) ondansetron ODT (ZOFRAN-ODT) 4 mg disintegrating tablet DISSOLVE 1 TABLET ON THE TONGUE EVERY 4-6 HOURS NEEDED FOR NAUSEA 11/27/19 25 Discontinu ed(Therapy completed) gabapentin (NEURONTIN) 300 mg capsule Take 1 capsule (300 mg total) by mouth 2 (two) times a day. 180 capsule 1 02/18/20 25 Discontinu ed(Reorder ) valACYclovir (VALTREX) 1 gram tablet Take 1 tablet (1,000 mg total) by mouth 3 (three) times a day for 7 days. 21 tablet 02/18/20 25 025 Active Problems Problem Noted Date Diagnosed Date Essential hypertension 06/07/2023 Osteoporosis 02/24/2022 Overview (02/27/2024): Started Fosamax 02/24/2022 Other specified anemias 02/03/2022 Acute kidney injury ([facility] V24) 08/31/2021 Fall 08/31/2021 Hemiplegia affecting nondomi nant side ([facility] V24, [facility] V28) 08/31/2021 Incoordination 08/31/2021 Major depression, single episode 08/31/2021 Oral phase dysphagia 08/31/2021 Orthostatic hypotension 08/31/2021 Overactive bladder 08/31/2021 Sepsis ([facility] V24, [facility] V28) 08/31/2021 Systemic inflammatory respon se syndrome (SIRS) due to non-infectious process without acute organ dysfunction ([facility] V24, [facility] V28) 08/31/2021 Undernutrition 08/31/2021 Urinary tract infectious disease 08/31/2021 Depression 03/21/2019 Iron deficiency anemia 01/01/2018 Esophageal web 01/01/2018 Overview (02/27/2024): Dilated up to 16 mm on EGD 10/2017 Esophageal dysmotility 01/01/2018 Overview (02/27/2024): Moderate severity per barium swallow 09/2017 Vitamin D deficiency 08/18/2009 Lumbago 06/16/2005 Vitiligo 06/16/2005 Multiple sclerosis 06/16/2005 Degenerative joint disease 06/16/2005 Overview (02/27/2024): IMO update Encounters Date Type Department Care Team Description 02/25/2025 2:00 PM EDT - 02/25/2025 11:59 PM EDT Hospital Encounter Radiology Department - [address] [phone] Encounter for screening mammogram for breast cancer Discharge Disposition: Home or Self Care 02/17/2025 3:00 PM EDT Office Visit Adult [address] [phone] Ericka Katz PA Herpes zoster without complication (Primary Dx); Need for prophylactic vaccination and inoculation against influenza 02/17/2025 Telephone Adult Medicine [address] [phone] Jorge Sage PA 01/20/2025 Telephone Adult [address] [phone] Jorge Sage PA 12/31/2024 8:45 AM EDT Office Visit Adult [address] [phone] Jorge Sage PA Essential hypertension (Primary Dx); Age-related osteoporosis without current pathological fracture; Vitamin D deficiency; Multiple sclerosis (CMS/HCC V24, CMS/HCC V28); Iron deficiency anemia due to chronic blood loss; Depression, unspecified depression type; Acute kidney injury (CMS/HCC V24); Major depressive disorder with single episode, remission status unspecified; Orthostatic hypotension from Last 3 Months Immunizations Immunization Administration Dates Next Due Hepatitis B (Fptsesl-K-Pqdju , Recombivax HB-Adult) 19yo and older 11/13/2001,07/09/2001,05/29/2001 Influenza Quadravalent, 0.5m l (Fluad) 65yo and older 04/12/2022,03/09/2021 Influenza Quadravalent, 0.5m l (Fluzone High-dose) 65yo and older 03/09/2023,04/07/2020 Influenza trivalent, 0.5mL ( Fluad) 65yo and older 02/17/2025,07/24/2024 Influenza trivalent, 0.5mL ( Fluzone High-dose) 65yo and older 02/05/2017,02/11/2016,02/07/2015 Influenza trivalent, 0.5mL, preservative free (Fluarix; FluLaval; Fluzone) ages 6mo and older (Afluria) 3 years and older 03/25/2018 Influenza trivalent, with pr eservative (Fluzone; Afluria) 6mo and older 03/04/2014,03/30/2013,03/03/2012,03/15,02/18/2010,05/19/2009,03/28/2008 ,03/30/2007,04/28/2006,04/04/2005 Influenza, Unspecified 03/09/2021 PPD Test 09/08/2021,09/01/2021 Pfizer SARS-CoV-2 COVID-19, mRNA, LNP-S, preservative free 11/14/2021,08/07/2020,07/09/2020 Pneumococcal conjugate 13 va lent (Prevnar 13, PCV13) 2mo and older 06/25/2015 Pneumococcal polysaccharide 23 valent (Pneumovax 23) 2yo and older 10/15/2007 RSV, bivalent, protein subun it RSVpreF, 0.5mL, Preservative Free (ABRYSVO) 50yo and older or 32 through 36 wks of 01/18/2024 Td Tetanus diptheria (Tdvax) 7yo and older 10/18/2012 Tdap Tetanus diptheria acell ular pertussis (Boostrix; Adacel) 7yo and older 12/26/2021 Tuberculin Skin Test; Unspec ified Formulation 09/08/2021,09/01/2021 Zoster Live 11/22/2011 Zoster recombinant (Shingrix ) 19yo and older 01/18/2024,11/14/2021 Surgical History Surgery Date Site/Laterality Comments TUBAL LIGATION PROCEDURE: HISTORICAL TUBAL LIGATION OTHER SURGICAL HISTORY PROCEDURE: HISTORY OTHER; COMMENT: 1999 gastric stapling COLONOSCOPY 12/16/2007 PROCEDURE: [place] COLONOSCOPY FLX DX W/COLLJ SPEC WHEN PFRMD; COMMENT: Negative COLONOSCOPY 12/16/07 PROCEDURE: HISTORICAL COLONOSCOPY; COMMENT: normal FLEXIBLE SIGMOIDOSCOPY 09/08/15 PROCEDURE: [place] SIGMOIDOSCOPY FLX DX W/COLLJ SPEC BR/WA IF PFRMD; COMMENT: normal OTHER SURGICAL HISTORY 11/19/17 [facility] PROCEDURE: [place] EGD BALLOON DILATION ESOPHAGUS <30 MM DIAM; COMMENT: Cervical esophageal web dilated with Savary dilator to 16 mm; roue-en-y gastrojejunostomy COLONOSCOPY 11/19/17 [facility] PROCEDURE: OUTSIDE COLONOSCOPY; COMMENT: Normal; would not repeat OTHER SURGICAL HISTORY Left PROCEDURE: HISTORY OTHER; COMMENT: 2018 left femoral neck fracture [facility] BREAST SURGERY Bilateral PROCEDURE: [place] UNLISTED PROCEDURE BREAST; COMMENT: benign BREAST BIOPSY Bilateral PROCEDURE: BX BREAST; PERC NEEDLE CORE W/IMAG GUID; COMMENT: benign Medical History Medical History Date Comments Lumbago 06/16/2005 DX:Lumbago Osteoarthrosis, unspecified whether generalized or localized, unspecified site 06/16/2005 DX:Osteoarthrosis, unspecifi ed whether generalized or localized, unspecified site Obesity, unspecified 06/16/2005 DX:Obesity, unspecified Multiple sclerosis 06/16/2005 DX:Multiple s clerosis (HCC) Vitiligo 06/16/2005 DX:Vitiligo Special screening for malign ant neoplasms, colon 12/16/2007 DX:Special screening for mal ignant neoplasms, colon; COMMENT: Negative colonoscopy 12/16/2007, no colon cancer screening needed for 10 years. Osteopenia 07/08/2008 DX:Osteopenia Iron deficiency anemia 01/01/2018 DX:Iron d eficiency anemia Esophageal dysmotility 01/01/2018 DX:Esopha geal dysmotility; COMMENT: Moderate severity per barium swallow 09/2017 Esophageal web 01/01/2018 DX:Esophageal we b Covid-19 06/07/2022 DX:COVID-19 Pelvic mass 12/27/2021 DX:Pelvic mass; COMMENT: Noted no CT, follow up ultrsound showed to be benign calcified fibroids Family History Medical History Relation Name Comments Breast cancer Aunt mat Breast cancer Other 1 COUSIN Breast cancer Other 2 niece Colon cancer Neg Hx Ovarian cancer Neg Hx Relation Name Status Comments Aunt mat Brother 1 Alive Brother 2 Alive Brother 3 Alive Brother 4 Alive Father MURDERED Mother Alive CABG Other 1 COUSIN Alive Other 2 niece Alive Sister 1 Alive BLOOD PROBLEM Sister 2 Alive myesthenia grav is Sister 3 Alive knee replacemen ts Sister 4 Alive dm Social History Tobacco Use Types Packs/Day Years Used Date Smoking Tobacco: Former Cigarettes 0.8 9.9 0 1960 - 07/26/1970 Tobacco Cessation:Counseling Given: Not Answered Alcohol Use Standard Drinks/Week Comments No 0 [...] for your loved ones. For example, child nurse or elderly care for an older adult? [...] on file Sexual Orientation Not on file Obstetrics History Para Term AB IAB SAB Ectopic Multiple Livin g Live Births 1 1 1 1 Date Outcome GA Total Labor Labor/2nd/3rd Weight Sex Type Anes PTL Marcela A1 A5 Name Clin Term Last Filed Vital Signs Vital Sign Reading Time Taken Comments Blood Pressure 125/60 02/17/2025 2:50 PM EDT Pulse 82 02/17/2025 2:50 PM EDT Temperature 35.7 C (96.2 F) 02/17/2025 2:50 PM EDT Respiratory Rate 15 02/17/2025 2:50 PM EDT Oxygen Saturation 99% 02/17/2025 2:50 PM EDT Inhaled Oxygen Concentration - - Weight 63.8 kg (140 lb 9.6 oz) 02/17/2025 2:50 P M EDT Height 167.6 cm (5' 6 ) 02/17/2025 2:50 PM EDT Body Mass Index 22.69 02/17/2025 2:50 PM EDT Plan of Treatment Upcoming Encounters Date Type Department Care Team (Late st Contact Info) Description 03/05/2025 2:30 PM EDT Office Visit [facility] Hematology Oncology [address] [place] [phone] Alexi Davidson MD [address] [place] [phone] 07/08/2025 10:45 AM EST Office Visit Adult Medicine [address] [phone] Jorge Sage PA [address] [place] [phone] Health Maintenance Due Date Last Done Comments Medicare Annual Wellness Visit 10/01/2024 10/02/2023 COVID-19 Vaccine ( season) 2025 03/09/2023, 04/12/2022, 11/14/2021, Additional history exists Hypertension/CHF/CAD Annual BMP Blood Test 07/03/2025 07/03/2024, 02/28/2024 Falls Risk Assessment 09/30/2025 09/30/2024, 024 Social Influencers of Health Screening 09/30/2025 09/30/2024 Cholesterol Screening (Lipid Panel) 02/27/2029 02/28/2024, 09/04/2022 DTaP,Tdap,and Td Vaccines (3 - Td or Tdap) 12/27/2031 12/26/2021, 10/18/2012 Osteoporosis Screening (Bone Density Screening) 02/25/2032 02/24/2022, 04/15/2018 Hepatitis B Vaccines Completed 11/13/2001, 07/09/2001, 05/29/2001 Pneumococcal Vaccine: 50+ Years Completed 06/25/2015, 10/15/2007 RSV Immunization Adult Patients Completed 01/18/2024 Zoster Vaccines Completed 01/18/2024, 10/27, 11/22/2011 Depression Screening Completed 09/30/2024, 10/02/19 Influenza Vaccine Completed 02/17/2025, , 03/09/2023, Additional history exists HIB Vaccines Aged Out No longer eligi ble based on patient's age to complete this topic HPV Vaccines Aged Out No longer eligi ble based on patient's age to complete this topic Hepatitis A Vaccines Aged Out No long er eligible based on patient's age to complete this topic IPV Vaccines Aged Out No longer eligi ble based on patient's age to complete this topic MMR Vaccines Aged Out No longer eligi ble based on patient's age to complete this topic Meningococcal ACWY Vaccine Aged Out N o longer eligible based on patient's age to complete this topic Meningococcal B Vaccine Aged Out No l onger eligible based on patient's age to complete this topic RSV Immunization Patients Under 20 months Aged Out No longer eligible based on patient's age to complete this topic Varicella Vaccines Aged Out No longer eligible based on patient's age to complete this topic Procedures Procedure Name Priority Date/Time Associated Diagnosis Comments COMPREHENSIVE METABOLIC PANEL Routine 07/03/2024 8:39 AM EST Diarrhea, unspecified type DEPRESSION SCREENING Routine 10/02/2023 FALLS RISK ASSESSMENT Routine 10/02/2023 LIPID PANEL Routine 09/04/2022 DXA BONE DENSITY STUDY 1+ SITS AXIAL SKEL Routine 02/24/2022 4:10 PM EDT Elevated blood-pressure reading, without diagnosis of hypertension Depression, unspecified Other iron deficiency anemias Dyskinesia of esophagus Esophageal web Vitamin D deficiency, unspecified Other specified disorders of bone density and structure, unspecified site Multiple sclerosis (CMS/HCC V24, CMS/HCC V28) Bariatric surgery status from Last 3 Months or Most Recently Relevant to Health Maintenance Results * (ABNORMAL) Comprehensive metabolic panel (07/03/2024 8:39 AM EST) Sodium 140 133 - 145 mmol/L LAB CHEMISTRY METHOD 07/03/2024 10:44 AM [facility] Potassium 4.3 3.5 - 5.5 mmol/L LAB CHEMISTRY METHOD 07/03/2024 10:44 AM [facility] Chloride 107 96 - 110 mmol/L LAB CHEMISTRY METHOD 07/03/2024 10:44 AM [facility] CO2 28 21 - 32 mmol/L LAB CHEMISTRY METHOD 07/03/2024 10:44 AM [facility] Anion Gap 5 3 - 11 LAB CHEMISTRY METHOD 07/03/2024 10:44 AM [facility] Glucose 88 70 - 100 mg/dL LAB CHEMISTRY METHOD 07/03/2024 10:44 AM [facility] BUN 16 5 - 25 mg/dL LAB CHEMISTRY METHOD 07/03/2024 10:44 AM [facility] Creatinine 1.01 0.50 - 1.10 mg/dL LAB CHEMISTRY METHOD 07/03/2024 10:44 AM [facility] eGFR 56(L) >=60 mL/min/1. 73m2 LAB CHEMISTRY METHOD 07/03/2024 10:44 AM [facility] Comment:Calculation based on the Chronic Kidney Disease Epidemiology Collaboration (CKD-EPI) equation refit without adjustment for race. BUN/Creatinine Ratio 15.8 LAB CHEMISTRY METHOD 07/03/2024 10:44 AM [facility] Calcium 9.1 8.5 - 10.5 mg/dL LAB CHEMISTRY METHOD 07/03/2024 10:44 AM [facility] AST (SGOT) 16 10 - 42 unit/L LAB CHEMISTRY METHOD 07/03/2024 10:44 AM [facility] ALT (SGPT) 22 10 - 60 unit/L LAB CHEMISTRY METHOD 07/03/2024 10:44 AM [facility] Alkaline Phosphatase 137(H) 42 - 121 unit/L LAB CHEMISTRY METHOD 07/03/2024 10:44 AM [facility] Total Protein 6.2 6.0 - 8.0 g/dL LAB CHEMISTRY METHOD 07/03/2024 10:44 AM [facility] Albumin 3.5 3.2 - 5.0 g/dL LAB CHEMISTRY METHOD 07/03/2024 10:44 AM [facility] Total Bilirubin 0.6 0.0 - 1.4 mg/dL LAB CHEMISTRY METHOD 07/03/2024 10:44 AM [facility] Blood Venous blood specimen / Unknown Venipuncture / Unknown 07/03/2024 8:39 AM EST 07/03/2024 8:39 AM EST us Ericka Sterling CRUZ LAB BLOOD ORDERABLES Final Resul t [facility] [address] [place] [address], * Falls Risk Assessment (10/02/2023) [facility] Falls Risk Assessment abstracted Historical Provider HEALTH MAINTENANCE Final Result * Depression Screening (10/02/2023) [facility] Depression Screening abstracted Historical Provider HEALTH MAINTENANCE Final Result * Lipid panel (09/04/2022) [facility] LDL/HDL Ratio 2 0 - 4 Triglycerides 48 0 - 150 mg/dL Cholesterol 127 0 - 200 mg/dL HDL 66 >=40 mg/dL LDL Cholesterol 52 0 - 100 mg/dL Blood Venous blood specimen / Unknown [facility] Provider LAB BLOOD ORDERABLES Tiffanie l Result * DXA BONE DENSITY STUDY 1+ SITS AXIAL SKEL (02/24/2022 4:10 PM EDT) Anatomical Region Laterality Modality Bone Densitometr y 01/18/2022 10:3 5 AM EDT Narrative 02/24/2022 4:20 PM EDT BONE DENSITY Lumbar Spine T-score is -0.7 (SD relative to 20-29 y/o adult) Z-score is +1.3 (SD relative to age matched peers) This is normal by criteria defined by the WHO. Left Hip T-score is -2.9 Z-score is -1.3 This is consistent with osteoporosis by criteria defined by the WHO. Comparison exam(s): significant decrease in bone density of lumbar spine when compared to most recent bone density examination Confidence level is +/-95%. Impression: Based on the World Health Organization criteria, Deloris Mesa should be classified as having osteoporosis. The [facility] Department of Internal Medicine recommends using National Osteoporosis Foundation (NOF) guidelines in treatment decisions related to osteoporosis. NOF guidelines suggest considering treatment for postmenopausal women and men aged 50 or older presenting with the following: History of hip or vertebral fracture. T-score less than or equal to -2.5 (DXA) at the femoral neck, total hip, or spine, after appropriate evaluation to exclude secondary causes. Low bone mass (T-score between -1.0 and -2.5 at the femoral neck or spine) AND a 10-year probability of a hip fracture greater than or equal to 3% OR a 10-year probability of a major osteoporosis-related fracture greater than or equal to 20% based on the [place]-adapted WHO algorithm Please note that all treatment decisions require clinical judgment and consideration of individual patient factors, including patient preferences, co-morbidities, previous drug use, risk factors not captured in the FRAX model (e.g., frailty, falls, vitamin D deficiency, increased bone turnover, interval significant decline in bone density) and possible under- or over-estimation of fracture risk by FRAX. Procedure Note Rita Min MD - 05/16/2022 BONE DENSITY Lumbar Spine T-score is -0.7 (SD relative to 20-29 y/o adult) Z-score is +1.3 (SD relative to age matched peers) This is normal by criteria defined by the WHO. Left Hip T-score is -2.9 Z-score is -1.3 This is consistent with osteoporosis by criteria defined by the WHO. Comparison exam(s): significant decrease in bone density of lumbar spinewhen compared to most recent bone density examination Confidence level is +/-95%. Impression: Based on the World Health Organization criteria, Deloris Mesa should beclassified as having osteoporosis. The [facility] Department of Internal Medicine recommendsusing National Osteoporosis Foundation (NOF) guidelines in treatmentdecisions related to osteoporosis. NOF guidelines suggest consideringtreatment for postmenopausal women and men aged 50 or older presentingwith the following: History of hip or vertebral fracture. T-score less than or equal to -2.5 (DXA) at the femoral neck, total hip,or spine, after appropriate evaluation to exclude secondary causes. Low bone mass (T-score between -1.0 and -2.5 at the femoral neck or spine)AND a 10-year probability of a hip fracture greater than or equal to 3% ORa 10-year probability of a major osteoporosis-related fracture greaterthan or equal to 20% based on the [place]-adapted WHO algorithm Please note that all treatment decisions require clinical judgment andconsideration of individual patient factors, including patientpreferences, co-morbidities, previous drug use, risk factors not capturedin the FRAX model (e.g., frailty, falls, vitamin D deficiency, increasedbone turnover, interval significant decline in bone density) and possibleunder- or over-estimation of fracture risk by FRAX. Jorge CRUZ IMG DXA PROCEDURES Final Result from Last 3 Months or Most Recently Relevant to Health Maintenance Insurance [facility]ICARE [facility] Advance Directives Documents on File Type Date Recorded Patient Immigration Investigator Expl anation Health Care Decision (hx) 09/06/2021 AD CINTRON DIRECTIVE Health Care Decision (hx) 09/06/2021 AD CINTRON DIRECTIVE Health Care Decision (hx) 09/06/2021 AD CINTRON DIRECTIVE Health Care Decision (hx) 09/06/2021 AD CINTRON DIRECTIVE Health Care Decision (hx) 09/06/2021 AD CINTRON DIRECTIVE Health Care Decision (hx) 09/06/2021 AD CINTRON DIRECTIVE Health Care Decision (hx) 09/06/2021 AD CINTRON DIRECTIVE Health Care Decision (hx) 09/06/2021 AD CINTRON DIRECTIVE Health Care Decision (hx) 01/03/2021 SAVANNA CINTRON DIRECTIVE Care Teams Drier Feeder Relationship Specialty Start Date End Date Jorge Sage PA [address] [place] [id number] PCP - General Internal Medicine 06/06/24
--- OUTSIDE RECORDS SUMMARY | 2025-02-26 10:42 | XMS_ITS | Encounter Summary ---
Author Organization [facility] Address [address] [place] [address] Care Team Providers Care Car Record Clerk Name Role Phone Angus Nevarez MD Primary Care Provider [phone] Jorge Sage PA-C Primary Care Provider [phone] Encounter Details Date Type Department Care Team Description 12/29/2015 Telephone Gastroenterology - [place] [address] [place] [address] [phone] Noah Nunn MD Social History Tobacco Use Types Packs/Day [...] documented as of this encounter Care Teams Car Record Clerk Relationship Specialty Start Date End Date Angus Nevarez MD [address] [place], [place] [phone] PCP - General 02/17/1997 07/25/20 Jorge Sage PA-C [address] [place] [id number] PCP - General Internal Medicine 07/26/20 documented as of this encounter
--- OUTSIDE RECORDS SUMMARY | 2025-02-26 10:42 | XMS_ITS | Encounter Summary ---
Author Organization [facility] Address [address] [place] [address] Care Team Providers Care Safety Administrator Name Role Phone Jorge Sage PA-C Primary Care Provider [phone] Encounter Details Date Type Department Care Team Description 10/13/2021 Precision Lathe Operator Report Medical Records [address] [place] [id number] Fortunato Muller MD Social History Tobacco Use [...] Recorded In the last 10 days, have tony zhu been in contact with someone who was [...] documented as of this encounter Care Teams Safety Administrator Relationship Specialty Start Date End Date Jorge Sage PA-C [address] [place] [address] PCP - General Internal Medicine 07/26/20 documented as of this encounter
--- OUTSIDE RECORDS SUMMARY | 2025-02-26 10:42 | XMS_ITS | Encounter Summary ---
Author Organization [facility] Address [address] [place] [address] Care Team Providers Care Licensed Marine Engineer Name Role Phone Angus Nevarez MD Primary Care Provider [phone] Jorge Sage PA-C Primary Care Provider + [phone] Encounter Details Date Type Department Care Team Description 07/08/2015 Palliative Care Specialist Report Medical Records [address] [place] [address] Fortunato Muller MD Social History Tobacco Use [...] documented as of this encounter Care Teams Licensed Marine Engineer Relationship Specialty Start Date End Date Angus Nevarez MD [address] [place], [place] [phone] PCP - General 02/17/1997 07/25/20 Jorge Sage PA-C [address] [place] [address] PCP - General Internal Medicine 07/26/20 documented as of this encounter
--- OUTSIDE RECORDS SUMMARY | 2025-02-26 10:42 | XMS_ITS | Encounter Summary ---
Author Organization [facility] Address [address] [place] [address] Care Team Providers Care Software Configuration Analyst Name Role Phone Jorge Sage PA-C Primary Care Provider [phone] Encounter Details Date Type Department Care Team Description 12/31/2020 Hospital Medical Records [address] [place] [address] [facility] Social History Tobacco Use Types Packs/Day Years [...] documented as of this encounter Care Teams Software Configuration Analyst Relationship Specialty Start Date End Date Jorge Sage PA-C [address] [place], [place] [phone] PCP - General Internal Medicine 07/26/20 documented as of this encounter
--- OUTSIDE RECORDS SUMMARY | 2025-02-26 10:42 | XMS_ITS | Encounter Summary ---
Author Organization [facility] Address [address] [place] [address] Care Team Providers Care Chromosomal Disorders Counselor Name Role Phone Jorge Sage PA-C Primary Care Provider +[phone] Encounter Details Date Type Department Care Team Description 10/19/2023 Therapeutic Case Manager Report Medical Records [address] [place] [address] Sarah Gordillo DPM Social History Tobacco Use Types Packs/Day Years [...] Diagnoses Not on filedocumented in this encounter Care Teams Chromosomal Disorders Counselor Relationship Specialty Start Date End Date Jorge Sage PA-C [address] [place], [place] [phone] PCP - General Internal Medicine 07/26/20 documented as of this encounter
--- OUTSIDE RECORDS SUMMARY | 2025-02-26 10:42 | XMS_ITS | Encounter Summary ---
Author Organization [facility] Address [address] [place] [address] Care Team Providers Care Roll Hand Name Role Phone Angus Nevarez MD Primary Care Provider + [phone] Jorge Sage PA-C Primary Care Provider [phone] Encounter Details Date Type Department Care Team Description 02/26/2012 Food Adviser Report Medical Records [address] [place] [address] Fortunato Muller MD Social History Tobacco Use [...] documented as of this encounter Care Teams Roll Hand Relationship Specialty Start Date End Date Angus Nevarez MD [address] [place], [place] [phone] PCP - General 02/17/1997 07/25/20 Jorge Sage PA-C [address] [place] [address] PCP - General Internal Medicine 07/26/20 documented as of this encounter
--- OUTSIDE RECORDS SUMMARY | 2025-02-26 10:42 | XMS_ITS | Encounter Summary ---
Author Organization [facility] Address [address] [place] [address] Care Team Providers Care Senior Sales Consultant Name Role Phone Jorge Sage PA-C Primary Care Provider [phone] Encounter Details Date Type Department Care Team Description 02/28/2022 Business Doc Medical Records [address] [place] [id number] Abstract, Provider Social History Tobacco Use Types [...] suspected to have Coronavirus/COVID-19? No / Unsure 02/24/2022 3:46 PM EDT documented as of this encounter Plan of Treatment Not on file documented as of this encounter Visit Diagnoses Not on filedocumented in this encounter Additional Health Concerns Infection Onset Date Last Indicated Resolved Time COVID-19 Comment:Tested positive on 06/0706/07/2022 06/12/2022 08/24/19 23 10:28 AM EDT documented as of this encounter Care Teams Senior Sales Consultant Relationship Specialty Start Date End Date Jorge Sage PA-C [address] [place] [address] PCP - General Internal Medicine 07/26/20 documented as of this encounter
--- OUTSIDE RECORDS SUMMARY | 2025-02-26 10:42 | XMS_ITS | Encounter Summary ---
Author Organization [facility] Address [address] [place] [address] Care Team Providers Care Physician Coding Specialist Name Role Phone Jorge Sage PA-C Primary Care Provider [phone] Reason for Visit * Reason Onset Date Comments Faxed Order 01/25/2021 Encounter Details Date Type Department Care Team Description 01/25/2021 Telephone Adult Medicine [address] [phone] Jorge Sage PA-C [address] [place] [address] [phone] Faxed Order Social History Tobacco Use Types Packs/Day Years [...] encounter Miscellaneous Notes * Telephone Encounter - Clara Maurer - 01/25/2021 10:05 AM EDT [facility] Please sign and return. Fax # [phone] documented in this encounter Plan of Treatment Not on file documented as of this encounter Visit Diagnoses Not on filedocumented in this encounter Additional Health Concerns Infection Onset Date Last Indicated Resolved Time COVID-19 Comment:Tested positive on 06/0706/07/2022 06/12/2022 08/24/19 23 10:28 AM EDT documented as of this encounter Care Teams Physician Coding Specialist Relationship Specialty Start Date End Date Jorge Sage PA-C [address] [place] [address] PCP - General Internal Medicine 07/26/20 documented as of this encounter
--- OUTSIDE RECORDS SUMMARY | 2025-02-26 10:42 | XMS_ITS | Clinical Summary ---
Author Organization [facility] Address [address] [place] [address] Care Team Providers Care Personal Injury Specialist Name Role Phone Jorge Sage PA-C Primary Care Provider Allergies Active Allergy Reactions Criticality Noted Date Comments Prochlorperazine 09/05/2022 Acetaminophen 09/05/2022 Medications Medication Sig Dispensed Refills Start Date End Date Status modafinil (PROVIGIL) 100 MG tablet Take 1 tablet (100 mg total) by mouth daily. 0 Active Ondansetron 4 MG FILM Take by mouth. 0 Active gabapentin (NEURONTIN) 300 MG capsule Take 1 capsule (300 mg total) by mouth 3 (three) times a day. 0 Active naproxen sodium (ALEVE) 220 MG tablet Take 1 tablet (220 mg total) by mouth 2 (two) times a day with meals. 0 Active docusate sodium (COLACE) 250 MG capsule Take 1 capsule (250 mg total) by mouth daily. 0 Active oxybutynin (DITROPAN-XL) 10 MG 24 hr tablet Take 1 tablet (10 mg total) by mouth daily. 0 Active ciclopirox 0.77 % gel Apply topically 2 (two) times a day. 0 Active sertraline (ZOLOFT) 50 MG tablet Take 1 tablet (50 mg total) by mouth daily. 0 Active ferrous sulfate 325 (65 FE) MG tablet Take 1 tablet (325 mg total) by mouth every morning with breakfast. 0 Active EPINEPHrine 0.3 MG/0.3ML SOAJ Inject 0.3 mL (0.3 mg total) into the muscle once. 0 Active vitamin E 1000 UNIT capsule Take 1 capsule (1,000 Units total) by mouth daily. 0 Active Cholecalciferol 125 MCG (5000 UT) capsule Take 1 capsule (5,000 Units total) by mouth daily. 0 Active vitamin B-12 (CYANOCOBALAMIN) 500 MCG tablet Take 1 tablet (500 mcg total) by mouth daily. 0 Active Melatonin 10 MG CAPS Take by mouth. 0 Active metroNIDAZOLE (FLAGYL) 250 MG tablet Take 1 tablet (250 mg total) by mouth 3 (three) times a day. 0 Active nystatin (MYCOSTATIN) cream Apply topically 2 (two) times a day. 0 Active amLODIPine (NORVASC) tablet 2.5 mg Take 1 tablet (2.5 mg total) by mouth daily. 0 Active Active Problems Problem Noted Date Diagnosed Date Other specified anemias 02/03/2022 Social History Tobacco Use Types Packs/Day Years Used Date Smoking Tobacco: Never Assessed Sex and Gender Information Value Date Recorded Sex Assigned at Not on file Gender Identity Not on file Sexual Orientation Not on file Job Start Date Occupation Industry Not on file Not on file Not on file Last Filed Vital Signs Vital Sign Reading Time Taken Comments Blood Pressure 142/61 03/04/2024 3:09 PM EDT Pulse 77 03/04/2024 3:09 PM EDT Temperature 37.1 C (98.8 F) 03/04/2024 3:09 PM EDT Respiratory Rate - - Oxygen Saturation 100% 03/04/2024 3:09 PM EDT Inhaled Oxygen Concentration - - Weight 63.5 kg (140 lb) 03/04/2024 3:09 PM EDT Height 167.6 cm (5' 6 ) 09/04/2023 3:11 PM EDT Body Mass Index 22.6 09/04/2023 3:11 PM EDT Plan of Treatment Health Maintenance Due Date Last Done Comments Depression Screening 1952 Preventative Health Evaluation 1960 Fall Risk Assessment 09/13/2007 Osteoporosis Screening (DEXA Scan) 09/13/2007 RSV Adult > 60+ Yrs or (1 - 1-dose 75+ series) 2017 Shingrix-Zoster Vaccine (2 of 2) 01/09/2022 11/14/2021 COVID-19 Vaccine ( season) 2025 03/09/2023, 11/14/2021, 03/09/2021, Additional history exists Influenza Vaccine (#1) 2025 3, 04/12/2022, 03/09/2021, Additional history exists DTap / Tdap / Td (2 - Td or Tdap) 12/27/2031 12/26/2021 Hepatitis B Vaccines Completed 11/13/2001, 07/09/2001, 05/29/2001 Pneumococcal Vaccine Completed 06/25/2015, 06/25/2015, 10/15/2007 RSV Ped < 20 months Aged Out No longe r eligible based on patient's age to complete this topic Care Teams Personal Injury Specialist Relationship Specialty Start Date End Date Jorge Sage, PAFredC PCP - General Medical Services 02/21/22
--- OUTSIDE RECORDS SUMMARY | 2025-02-26 10:42 | XMS_ITS ---
Author Name [facility] Organization Unknown Care Team Organization Name Specialty Phone Email Start Date End Da te [facility] 01/14/2025 [facility] Leatha Glass Primary Care 04/04/20222023
--- OUTSIDE RECORDS SUMMARY | 2025-02-26 10:42 | XMS_ITS | Encounter Summary ---
Author Organization [facility] Address [address] [place] [address] Care Team Providers Care Brusher Name Role Phone Angus Nevarez MD Primary Care Provider [phone] Jorge Sage PA-C Primary Care Provider [phone] Encounter Details Date Type Department Care Team Description 06/22/2016 Orders Only Medical Records [address] [place] [id number] Andrew Becerra DO Social History Tobacco Use Types Packs/Day Years [...] on file documented as of this encounter Procedures Procedure Name Priority Date/Time Associated Diagnosis Comments OUTSIDE MRI/MRA Routine 06/08/2016 documented in this encounter Results * OUTSIDE MRI/MRA (06/08/2016) Andrew Becerra DO RADIOLOGY documented in this encounter Visit Diagnoses Not on filedocumented in this encounter Additional Health Concerns Infection Onset Date Last Indicated Resolved Time COVID-19 Comment:Tested positive on 06/0706/07/2022 06/12/2022 08/24/19 23 10:28 AM EDT documented as of this encounter Care Teams Brusher Relationship Specialty Start Date End Date Angus Nevarez MD [address] [place] [address] PCP - General 02/17/1997 07/25/20 Jorge Sage PA-C [address] [place] [address] PCP - General Internal Medicine 07/26/20 documented as of this encounter
--- OUTSIDE RECORDS SUMMARY | 2025-02-26 10:42 | XMS_ITS | Encounter Summary ---
Author Organization [facility] Address [address] [place] [address] Care Team Providers Care Painter Sign Maintenance Name Role Phone Jorge Sage PA-C Primary Care Provider [phone] Reason for Visit * Reason Onset Date Comments Faxed Order 03/08/2021 [facility] Order # [id number] Encounter Details Date Type Department Care Team Description 03/08/2021 Telephone Adult Medicine [address] [phone] Jorge Sage PA-C [address] [place] [address] [phone] Faxed Order ([facility] Order # [id number]) Social History Tobacco Use Types Packs/Day Years [...] * Telephone Encounter - Clara Maurer - 03/18/2021 8:11 AM EDT Another faxed order received from [facility] with order # [id number] marked urgent. Order placed in [employer] bin. Please review, sign, date, and fax back to [phone]. * Telephone Encounter - Ryan Shaver - 03/08/2021 11:21 AM EDT Faxed order received from [facility] with order # [id number] marked urgent. Order placed in [employer] bin. Please review, sign, date, and fax back to [phone]. documented in this encounter Plan of Treatment Not on file documented as of this encounter Visit Diagnoses Not on filedocumented in this encounter Additional Health Concerns Infection Onset Date Last Indicated Resolved Time COVID-19 Comment:Tested positive on 06/0706/07/2022 06/12/2022 08/24/19 23 10:28 AM EDT documented as of this encounter Care Teams Painter Sign Maintenance Relationship Specialty Start Date End Date Jorge Sage PA-C [address] [place] [address] PCP - General Internal Medicine 07/26/20 documented as of this encounter
--- OUTSIDE RECORDS SUMMARY | 2025-02-26 10:42 | XMS_ITS | Encounter Summary ---
Author Organization [facility] Address [address] [place] [address] Care Team Providers Care Extension Educator Name Role Phone Angus Nevarez MD Primary Care Provider [phone] Jorge Sage PA-C Primary Care Provider Encounter Details Date Type Department Care Team Description 05/31/2020 Supervisor Wheel Shop Report Medical Records [address] [place] [address] Sarah Gordillo DPM Social History Tobacco Use [...] documented as of this encounter Care Teams Extension Educator Relationship Specialty Start Date End Date Angus Nevarez MD [address] [place], [place] [phone] PCP - General 02/17/1997 07/25/20 Jorge Sage PA-C [address] [place] [address] PCP - General Internal Medicine 07/26/20 documented as of this encounter
--- OUTSIDE RECORDS SUMMARY | 2025-02-26 10:42 | XMS_ITS | Encounter Summary ---
Author Organization [facility] Address [address] [place] [address] Care Team Providers Care Die Lay Out Worker Name Role Phone Jorge Sage PA-C Primary Care Provider [phone] Encounter Details Date Type Department Care Team Description 08/31/2021 Hospital Medical Records [address] [place] [address] Chen Giordano MD Social History Tobacco Use Types Packs/Day [...] documented as of this encounter Care Teams Die Lay Out Worker Relationship Specialty Start Date End Date Jorge Sage PA-C [address] [place], [place] [phone] PCP - General Internal Medicine 07/26/20 documented as of this encounter
--- OUTSIDE RECORDS SUMMARY | 2025-02-26 10:43 | XMS_ITS | Encounter Summary ---
Author Organization [facility] Address [address] [place] [address] Care Team Providers Care Qc Analyst Name Role Phone Angus Nevarez MD Primary Care Provider + [phone] Jorge Sage PA-C Primary Care Provider [phone] Encounter Details Date Type Department Care Team Description 10/29/2017 Orders Only Adult Medicine [address] [phone] Jorge Sage PA-C [address] [place] [phone] MULTIPLE SCLEROSIS followed by dr green; Allergy to lobster; Esophageal dysphagia Social History Tobacco Use Types Packs/Day Years [...] Procedure Name Priority Date/Time Associated Diagnosis Comments CHG RADIOLOGIC EXAM ESOPHAGUS SINGLE CONTRAST STUDY Routine 10/25/2017 MULTIPLE SCLEROSIS followed by dr green Allergy to lobster Esophageal dysphagia documented in this encounter Results * BARIUM SWALLOW (10/25/2017) Jorge Sage PA-C RADIOLOGY documented in this encounter Visit Diagnoses Diagnosis MULTIPLE SCLEROSIS followed by dr green Multiple sclerosis Allergy to lobster Allergy, unspecified not elsewhere classified Esophageal dysphagia Dysphagia, pharyngoesophageal phase documented in this encounter Additional Health Concerns Infection Onset Date Last Indicated Resolved Time COVID-19 Comment:Tested positive on 06/0706/07/2022 06/12/2022 08/24/19 23 10:28 AM EDT documented as of this encounter Care Teams Qc Analyst Relationship Specialty Start Date End Date Angus Nevarez MD [address] [place] [address] PCP - General 02/17/1997 07/25/20 Jorge Sage PA-C [address] [place] [address] PCP - General Internal Medicine 07/26/20 documented as of this encounter
--- OUTSIDE RECORDS SUMMARY | 2025-02-26 10:43 | XMS_ITS | Encounter Summary ---
Author Organization [facility] Address [address] [place] [address] Care Team Providers Care Research Methodologist Name Role Phone Angus Nevarez MD Primary Care Provider [phone] Jorge Sage PA-C Primary Care Provider Encounter Details Date Type Department Care Team Description 06/16/2019 Business Doc Medical Records [address] [place] [address] Abstract, Provider Social History Tobacco Use Types [...] documented as of this encounter Care Teams Research Methodologist Relationship Specialty Start Date End Date Angus Nevarez MD [address] [place] [address] PCP - General 02/17/1997 07/25/20 Jorge Sage PA-C [address] [place] [address] PCP - General Internal Medicine 07/26/20 documented as of this encounter
--- OUTSIDE RECORDS SUMMARY | 2025-02-26 10:43 | XMS_ITS | Clinical Summary ---
Author Organization [facility] Address [address] [facility] [place] [address] Care Team Providers Care Policy Advisor Name Role Phone Jorge Sage PA-C Primary Care Provider [phone] Allergies Active Allergy Reactions Severity Noted Date Comments Acetaminophen 10/02/2007 Throat swells/ trouble breathing Prochlorperazine Anaphylaxis 07/13/2005 Seafood OTHER Medium 08/15/2017 Lobster, shrimp throat swelling Rash and itch Ears blocked Medications Medication Sig Dispensed Refills Start Date End Date Status Cholecalciferol ([employer] VIT D 5000 HIGH-POTENCY OR) Take 1 Tab by mouth daily. 0 Active Cyanocobalamin (VITAMIN B-12 CR OR) Take 1 Tab by mouth daily. 0 Active EPINEPHrine 0.3 MG/0.3ML Solution Auto-injectorIndica tions:Multiple sclerosis (HCC),Allergy to lobster,Esophageal dysphagia Inject 0.3 mg into the muscle as needed for Other (anaphylactic reaction). 2-pack. Fill with whichever brand is covered by insurance. 2 Each 2 08/15/2017 Active Ferrous Sulfate 324 (65 FE) MG Tab EC Take 1 Tab by mouth daily. 90 Tab 1 10/16/2017 Active Ciclopirox 0.77 % GelIndications:Onyc homycosis Apply to toenails once daily 60 g 3 12/10/2018 Active naproxen sodium (Aleve) 220 MG tablet Take 1 tablet by mouth 2 times daily (with meals). 60 tablet 11 01/17/2021 Active oxybutynin (DITROPAN-XL) 10 MG 24 hr tablet Take 10 mg by mouth 2 times daily. 0 01/17/2021 Active modafinil (PROVIGIL) 100 MG tablet Take 100 mg by mouth 2 times daily. 0 Active Ondansetron 4 MG FILM Take 4 mg by mouth as needed. 0 Active Ascorbic Acid (Vitamin C) 500 MG Cap Take by mouth daily. 0 Active nystatin (MYCOSTATIN) ointment Apply topically 3 times daily for 10 days 30 g 0 08/23/2022 Active hydrocortisone 0.5 % cream Apply small amount to affected area, bid 30 g 0 07/27/2023 Active gabapentin (NEURONTIN) 300 MG capsule TAKE 1 CAPSULE TWICE A DAY 270 Capsule 3 08/02/2023 Active alendronate (Fosamax) 70 MG tablet Take 1 Tablet by mouth every 7 days. 4 Tablet 11 10/02/2023 Active amlodipine (NORVASC) 2.5 MG tablet TAKE 1 TABLET DAILY 90 Tablet 1 11/27/2023 Active Active Problems Problem Noted Date Essential hypertension 06/07/2023 Osteoporosis 02/24/2022 Overview: Started Fosamax 02/24/2022 S/P gastric bypass 01/18/2022 Depression 03/21/2019 Iron deficiency anemia 01/01/2018 Esophageal dysmotility 01/01/2018 Overview: Moderate severity per barium swallow 09/2017 Esophageal web 01/01/2018 Overview: Dilated up to 16 mm on EGD 10/2017 Vitamin D Deficiency noted 200908/19/19 10 Special screening for malignant neoplasm s, colon 12/16/2007 Overview: Negative colonoscopy 12/16/2007, no colon cancer screening needed for 10 years. chronicle back pain with lum bar disk disease, status post epidural injections 06/16/2005 degenerative joint disease 06/16/2005 Overview: IMO update MULTIPLE SCLEROSIS followed by dr green 06/16/2005 Vitiligo 06/16/2005 Resolved Problems Problem Noted Date Resolved Date Pelvic mass 12/27/2021 08/23/2022 Overview: Noted no CT, follow up ultrsound showed to be benign calcified fibroids Last Assessment & Plan: I discussed the CT results from 08/26/2021 with the patient today. I reviewed the findings of the the 2 areas of calcification within the pelvis, likely due to uterine fibroids. I do recommend the patient undergo a pelvic ultrasound to confirm the calcifications are due to fibroids and not related to other pathology such as ovarian masses. The patient is in agreement. All questions answered. 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 08/15/2017 01/08/2019 Osteopenia 07/08/2008 02/24/2022 obesity, status post gastric bypass 06/16/2005 01/18/2022 Immunizations Name Administration Dates Next Due COVID-19 (Moderna) 08/07/2020 COVID-19 (Pfizer) 03/09/2023, 2,03/09/2021,08/07,07/09/2020 COVID-19 (Pfizer) Pt Reported 03/09/2021, 021,07/09/2020 Covid-19 Bivalent (Pfizer) 04/12/2022 Flu (Generic) 03/09/2021 Hepatitis B-2 dose(11-15yrs) 11/13/2001,07/09/19 02,05/29/2001 Influenza (> 6 Months) 03/04/2014,2012,03/03/2012,03/15,02/18/2010,05/19/2009,03/28/2008 ,03/30/2007,04/28/2006,04/04/2005 Influenza (>6 Months) Split Preservative Free 03/25/2018 Influenza Flu (PT Reported) 03/09/2021 Influenza vaccine high dose age 65 and over 03/09/2023,04/12/2022,03/09/2021,04/07,02/05/2017,02/11/2016,02/07/2015 PPD-RBMG 09/08/2021,09/01/2021 Pneumoccoccal(Adult) Polysac charide PPSV23 10/15/2007 Pneumococcal Conjugate PCV-13 06/25/2015 Pneumococcal Conjugate PCV-20 06/25/2015 Shingrix (Recombinant zoster vaccine) 11/14/2021 TD (STATE SUPPLIED FOR ADULT S AND CHILDREN) 10/18/2012 Tdap 12/26/2021 Zostavax 11/22/2011 Family History Medical History Relation Name Comments CA Breast Aunt mat CA Breast Other 1 COUSIN CA Breast Other 2 niece CA Colon Negative Hx CA Ovarian Negative Hx Relation Name Status Comments Aunt mat [...] 0 1958 - 07/26/1970 Smokeless Tobacco: Never Tobacco Cessation:Counseling Given: Not Answered Alcohol Use Standard Drinks/Week Comments No 0 (1 standard drink = 0.6 oz pur e alcohol) Sex Assigned at Date Recorded Not on file Job Start Date Occupation Industry Not on file Not on file Not on file Last Filed Vital Signs Vital Sign Reading Time Taken Comments Blood Pressure 138/68 11/07/2023 3:15 PM EDT Pulse 74 11/07/2023 3:15 PM EDT Temperature 36.9 C (98.4 F) 11/07/2023 3:15 PM EDT Respiratory Rate 15 11/07/2023 3:15 PM EDT Oxygen Saturation 99% 06/07/2023 10:45 AM EST Inhaled Oxygen Concentration - - Weight 64.4 kg (142 lb) 11/07/2023 3:15 PM EDT Height 167.6 cm (5' 6 ) 10/02/2023 12:55 PM EDT Body Mass Index 22.92 10/02/2023 12:55 PM EDT Plan of Treatment Health Maintenance Due Date Last Done Comments BONE DENSITY SCREENING 02/25/2024 , 04/15/2018, 10/31/2012, Additional history exists DEPRESSION SCREEN 10/01/2024 10/02/2023, , 09/04/2022, Additional history exists FALL RISK ASSESSMENT 10/01/2024 10/02/2023, 09/04/2022, 09/04/2022, Additional history exists INFLUENZA (#1) 2025 03/09/2023, 03/28, 03/09/2021, Additional history exists MAMMOGRAM 02/12/2025 02/13/2024, 12/2022, 01/27/2022, Additional history exists CHOLESTEROL SCREENING 02/27/2029 02/28/2024 , 09/04/2022, 03/30/2022, Additional history exists DTAP/TDAP/TD (3 - Td or Tdap) 12/27/2031 12/26/2021, 04/12/2018 (Exception), 10/18/2012 Covid-19 Vaccine ( season) 2112 03/09/2023, 04/12/2022, 11/14/2021, Additional history exists Postponed from 01/26/2025 (Patient Refused) PNEUMOCOCCAL VACCINE Completed 06/25/2015, 06/25/2015, 10/15/2007 SHINGLES VACCINE Discontinued 11/14/2021, 11/22/2011 Care Teams Policy Advisor Relationship Specialty Start Date End Date Jorge Sage PA-C [address] [place] [address] PCP - General Internal Medicine 07/26/20
--- OUTSIDE RECORDS SUMMARY | 2025-02-26 10:43 | XMS_ITS | Encounter Summary ---
Author Organization [facility] Address [address] [place] [address] Care Team Providers Care System Configuration Specialist Name Role Phone Angus Nevarez MD Primary Care Provider [phone] Jorge Sage PA-C Primary Care Provider Encounter Details Date Type Department Care Team Description 08/16/2018 Release of Information Medical Records [address] [place] [id number] Abstract, Provider Social History Tobacco Use Types [...] documented as of this encounter Care Teams System Configuration Specialist Relationship Specialty Start Date End Date Angus Nevarez MD [address] [place] [address] [phone] PCP - General 02/17/1997 07/25/20 Jorge Sage PA-C [address] [place] [address] PCP - General Internal Medicine 07/26/20 documented as of this encounter
--- OUTSIDE RECORDS SUMMARY | 2025-02-26 10:43 | XMS_ITS | Encounter Summary ---
Author Organization [facility] Address [address] [place] [address] Care Team Providers Care Currency Examiner Name Role Phone Angus Nevarez MD Primary Care Provider [phone] Jorge Sage PA-C Primary Care Provider Encounter Details Date Type Department Care Team Description 03/06/2010 Hospital Medical Records [address] [place] [address] Nolvia Fung MD Social History Tobacco Use Types Packs/Day [...] documented as of this encounter Care Teams Currency Examiner Relationship Specialty Start Date End Date Angus Nevarez MD [address] [place], [place] [phone] PCP - General 02/17/1997 07/25/20 Jorge Sage PA-C [address] [place] [address] PCP - General Internal Medicine 07/26/20 documented as of this encounter
--- OUTSIDE RECORDS SUMMARY | 2025-02-26 10:43 | XMS_ITS | Encounter Summary ---
Author Organization [facility] Address [address] [place] [address] Care Team Providers Care Wastewater Project Engineer Name Role Phone Angus Nevarez MD Primary Care Provider [phone] Jorge Sage PA-C Primary Care Provider Encounter Details Date Type Department Care Team Description 03/19/2018 Release of Information Medical Records [address] [place] [address] Abstract, Provider Social History Tobacco Use Types [...] documented as of this encounter Care Teams Wastewater Project Engineer Relationship Specialty Start Date End Date Angus Nevarez MD [address] [place] [address] [id number] PCP - General 02/17/1997 07/25/20 Jorge Sage PA-C [address] [place] [address] PCP - General Internal Medicine 07/26/20 documented as of this encounter
--- OUTSIDE RECORDS SUMMARY | 2025-02-26 10:43 | XMS_ITS | Encounter Summary ---
Author Organization [facility] Address [address] [place] [address] Care Team Providers Care Communications Clerk Name Role Phone Angus Nevarez MD Primary Care Provider [phone] Jorge Sage PA-C Primary Care Provider Encounter Details Date Type Department Care Team Description 10/15/2018 Photographic Equipment Assembler Report Medical Records [address] [place] [address] Fortunato Muller MD Social History Tobacco Use [...] documented as of this encounter Care Teams Communications Clerk Relationship Specialty Start Date End Date Angus Nevarez MD [address] [place], [place] [phone] PCP - General 02/17/1997 07/25/20 Jorge Sage PA-C [address] [place] [address] PCP - General Internal Medicine 07/26/20 documented as of this encounter
--- OUTSIDE RECORDS SUMMARY | 2025-02-26 10:43 | XMS_ITS | Encounter Summary ---
Author Organization [facility] Address [address] [place] [address] Care Team Providers Care Biscuit Factory Worker Name Role Phone Angus Nevarez MD Primary Care Provider [phone] Jorge Sage PA-C Primary Care Provider [phone] Reason for Visit * Reason Onset Date Comments Dysphagia 10/29/2017 esophageal web; iron deficiency anemia Call-returning From Provider 10/30/2017 Encounter Details Date Type Department Care Team Description 10/29/2017 Telephone Gastroenterology - [address] [address] Noah Nunn MD Dysphagia (esophageal web; iron deficiency anemia); Call-returning From Provider Social History Tobacco Use Types Packs/Day [...] encounter Miscellaneous Notes * Telephone Encounter - Noah Nunn MD - 10/30/2017 5:14 PM EDT I phoned her back at about 5:07 PM. 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 I explained what this is, and how weight might be dilated using a rubber dilator or a balloon dilator. I discussed upper endoscopy and dilation of esophageal strictures in detail, including possible risks of bleeding with need for transfusion, reaction to sedation, aspiration and perforation of the esophagus with need for surgery. She accepted these risks and wishes to proceed. She has new iron deficiency anemia, and is taking ferrous sulfate. Her last colonoscopy (for screening) had been normal in November,. I suggested repeat colonoscopy because of the iron deficiency anemia, to rule out colonic neoplasm and angiodysplasia. I discussed the procedure with her including risks of bleeding with need for transfusion, reaction to sedation and perforation with need for surgery and colostomy. She wished to proceed. She knows to stop her ferrous sulfate 3 days before the colonoscopy, and to resume it again afterwards. A because her esophageal web very proximal, and because of her advanced age, I suggested that she undergo the procedures in the outpatient hospital setting, such that her airway can be maintained, ifnecessary. She agreed. Schedulers: Please schedule her for upper endoscopy with esophageal dilation and colonoscopy at thesame sitting, under propofol. Please send my recent consultation note, and this phone encounter to Dr. Araiza. Please arrange for follow-up with me to follow the endoscopic procedures. * Telephone Encounter - Grisel Wade - 10/30/2017 2:03 PM EDT Patient returned Dr Nunn phone call Cell: [phone] Has cell phone with her all the time Home: [phone] After 5:00pm * Telephone Encounter - Noah Nunn MD - 10/30/2017 11:57 AM EDT I phoned at 11:57 AM, and spoke with her , who stated that patient has the message to call me. * Telephone Encounter - Noah Nunn MD - 10/29/2017 5:53 PM EDT Left home and mobile voicemail messages for her to return my call (regarding her barium swallow results). documented in this encounter Plan of Treatment Not on file documented as of this encounter Visit Diagnoses Not on filedocumented in this encounter Additional Health Concerns Infection Onset Date Last Indicated Resolved Time COVID-19 Comment:Tested positive on 06/0706/07/2022 06/12/2022 08/24/19 10:28 AM EDT documented as of this encounter Care Teams Biscuit Factory Worker Relationship Specialty Start Date End Date Angus Nevarez MD [address] [place] [address] PCP - General 02/17/1997 07/25/20 Jorge Sage PA-C [address] [place] [address] PCP - General Internal Medicine 07/26/20 documented as of this encounter
--- OUTSIDE RECORDS SUMMARY | 2025-02-26 10:43 | XMS_ITS | Encounter Summary ---
Author Organization [facility] Address [address] [place] [address] Care Team Providers Care Grounds Maintenance Manager Name Role Phone Jorge Sage PA-C Primary Care Provider [phone] Reason for Visit * Reason Onset Date Comments Medication 08/14/2023 Encounter Details Date Type Department Care Team Description 08/14/2023 Telephone Adult Medicine [address] [phone] Jorge Sage PA-C [address] [place] [address] [phone] Medication Social History Tobacco Use Types Packs/Day Years [...] encounter Miscellaneous Notes * Telephone Encounter - Kelly Lorenz C.M.A - 08/14/2023 1:16 PM EDT [phone] (home) [phone] (work) Called pt, states she tried the hydrocortisone cream as discused and says it did help a little bit but didn't clear the skin and burning all the way. Would like another medication that might help more. Please advise. * Telephone Encounter - Kelly Lorenz C.M.A - 08/14/2023 9:08 AM EDT [phone] (home) [phone] (work) Lvm for pt to return call to get clarification. * Telephone Encounter - Danielle Singletary - 08/14/2023 8:55 AM EDT Who is calling? The patient Name of the medication Hydrocortisone .05% cream What is the specific problem or interaction? Dr Martínez prescribed medication that has helped a bit withthe redness and burning around lips. Has been using since 07/27/23. Patient asking if there is another medication she can use to clear the skin and burning. If the patient is having a problem with taking the med - how long has the problem been going on? documented in this encounter Plan of Treatment Not on file documented as of this encounter Visit Diagnoses Not on filedocumented in this encounter Care Teams Grounds Maintenance Manager Relationship Specialty Start Date End Date Jorge Sage PA-C [address] [place] [address] PCP - General Internal Medicine 07/26/20 documented as of this encounter
--- OUTSIDE RECORDS SUMMARY | 2025-02-26 10:43 | XMS_ITS | Encounter Summary ---
Author Organization [facility] Address [address] [place] [address] Care Team Providers Care Chemical Supervisor Name Role Phone Angus Nevarez MD Primary Care Provider [phone] Jorge Sage PA-C Primary Care Provider [phone] Reason for Visit * Reason Onset Date Comments Provider Call Back 06/05/2019 Encounter Details Date Type Department Care Team Description 06/05/2019 Telephone Adult Medicine [address] [phone] Angus Nevarez MD [address] [place] [address] [phone] Provider Call Back Social History Tobacco Use Types Packs/Day Years [...] encounter Miscellaneous Notes * Telephone Encounter - Sarah Patel R.N - 06/05/2019 1:30 PM EST Pt called left voice message to return call. * Telephone Encounter - Angus Nevarez MD - 06/05/2019 10:57 AM EST Please let her know that we would certainly be happy to give her B12 shots if she is actually deficient in B12. Many years ago there was no way to measure the B12 so many patients were given B12 shots by the old time doctors. But now we can actually measure her B12 to determine if she is deficient.She did have a test done in 2018 and her B12 was in the normal range. However I have no problem rechecking her B12 just to double check as it is now 2 years later. At the same time I can check her other labs as it is been almost a year since her last blood work.. Also she missed her appointment with me on May 06 and has no follow- up so if you could give her an appointment to see me in the next few months I would be nice as well. * Telephone Encounter - Nadine Martinez M.A. - 06/05/2019 10:55 AM EST Please read message below and advise * Telephone Encounter - Stephanie Pro - 06/05/2019 10:51 AM EST Caller requesting call back from provider: Is the caller the patient? YES If caller is not the patient, what is the callers name? N/A Callers relationship to patient? N/A If person calling is not the patient themselves, is there a verbal release in FYI or permanent comments for this person: NO Reason for call back: Patient is requesting a call back from Angus Nevarez nurse. She states shewould like to know if she is eligible for B12 shots. Caller offered to speak with the nurse for assistance: YES Response: Patient offered to speak with nurse for assistance and patient agreed. Message forwarded to nurse. documented in this encounter Plan of Treatment Not on file documented as of this encounter Results * 25 HYDROXY INCLUDES FRACTIONS IF PERFORMED (06/07/2019 10:46 AM EST) VITAMIN D, 25-HYDROXY 30 30 - 80 ng/mL 06/07/2019 3:04 PM EST [facility] [employer] 06/07/2019 10:4 6 AM EST 06/07/2019 10:47 AM EST Angus Nevarez MD LAB Performing Organization Address City/[facility]/ZIP Co de Phone Number [facility] [employer] * VITAMIN B-12, ASSAY (06/07/2019 10:46 AM EST) VITAMIN B12 391 250 - 900 pg/mL 06/07/2019 3:20 PM EST [facility] [facility] 06/07/2019 10:4 6 AM EST 06/07/2019 10:47 AM EST Angus Nevarez MD LAB Performing Organization Address City/[facility]/ZIP Co de Phone Number [facility] * IRON/TIBC (06/07/2019 10:46 AM EST) TOTAL IRON BINDING CAPACITY 269 250 - 450 ug/dL 06/07/2019 2:57 PM EST [facility] IRON (FE) 88 40 - 150 ug/dL 06/07/2019 2:57 PM EST [facility] % FE SATURATION 33 15 - 50 % 0 2:57 PM EST [facility] [employer] 06/07/2019 10:4 6 AM EST 06/07/2019 10:47 AM EST Angus Nevarez MD LAB Performing Organization Address City/[facility]/ZIP Co de Phone Number [employer] * (ABNORMAL) CBC (AUTO DIFF PLATELET) (06/07/2019 10:46 AM EST) WHITE BLOOD COUNT 4.4(L) 4.8 - 10.8 x10-3/uL 06/07/2019 3:05 PM EST [facility] RED BLOOD COUNT 3.8 3.8 - 4.8 x10-6/uL 06/07/2019 3:05 PM EST [facility] Hemoglobin 11.9 11.5 - 16.0 g/dL 06/07/2019 3:05 PM EST [facility] Hematocrit 38.0 35 - 47 % 06/07/2019 3:05 PM EST [facility] MEAN CORPUSCULAR VOLUME 99.2(H) 79 - 98 fL 06/07/2019 3:05 PM EST [facility] MEAN CORPUSCULAR HEMOGLOBIN 31.1 27 - 32 pg 06/07/2019 3:05 PM EST [facility] MEAN CORPUSCULAR HGB CONC 31.3(L) 32 - 37 g/dL 06/07/2019 3:05 PM EST [facility] RED CELL DISTRIBUTION WIDTH 13.6 11 - 15 % 06/07/2019 3:05 PM EST [facility] PLT COUNT 330 130 - 400 x10-3/uL 06/07/2019 3:05 PM EST [facility] MEAN PLATELET VOLUME 10.3 7 - 11 fL 06/07/2019 3:05 PM EST [facility] NRBC % AUTO 0.0 <1 % 06/07/2019 3:05 PM EST [facility] NEUTROPHILS % 58.1 % 06/07/2019 3:05 PM EST [facility] LYMPH % 22.3 % 06/07/2019 3:05 PM EST [facility] MONO % 9.1 % 06/07/2019 3:05 PM EST [facility] EOS % 9.6 % 06/07/2019 3:05 PM EST [facility] BASO % 0.7 % 06/07/2019 3:05 PM EST [facility] IMMATURE GRANULOCYTES % 0.2 % 06/07/2019 3:05 PM EST [facility] NRBC # AUTO 0.00 <0.1 x10-3/uL 06/07/2019 3:05 PM EST [facility] NEUT # 2.55 1.5 - 7.0 x10-3/uL 06/07/2019 3:05 PM EST [facility] LYMPH # 0.98(L) 1 - 5.0 x10-3/uL 06/07/2019 3:05 PM EST [facility] MONO # 0.40 0.2 - 1.0 x10-3/uL 06/07/2019 3:05 PM EST [facility] EOS # 0.42 0 - 0.5 x10-3/uL 06/07/2019 3:05 PM EST [facility] BASO # 0.03 0 - 0.2 x10-3/uL 06/07/2019 3:05 PM EST [facility] IMMATURE GRANULOCYTES # 0.01 0 - 0.03 x10-3/uL 06/07/2019 3:05 PM EST [facility] 06/07/2019 10:4 6 AM EST 06/07/2019 10:47 AM EST Angus Nevarez MD LAB [facility] * TSH (06/07/2019 10:46 AM EST) TSH 1.35 0.40 - 4.00 uIU/ml 06/07/2019 3:04 PM EST [facility] 06/07/2019 10:4 6 AM EST 06/07/2019 10:47 AM EST Angus Nevarez MD LAB [facility] * (ABNORMAL) COMPREHENSIVE METABOLIC PANEL (06/07/2019 10:46 AM EST) GLUCOSE 85 70 - 100 mg/dL 06/07/2019 2:57 PM EST [facility] Comment:Reference range appl icable to fasting specimens only Blood Urea Nitrogen 23 5 - 25 mg/dL 06/07/2019 2:57 PM EST [facility] CREAT 0.86 0.5 - 1.1 mg/dL 06/07/2019 2:57 PM EST [facility] GLOMERULAR FILTRATION RATE > 60 06/07/2019 2:57 PM EST [facility] Comment: If patient is -[place] African, multiply result by 1.21 Chronic Kidney Disease: < 60 ml/min/1.73 square meters Kidney Failure: < 15 ml/min/1.73 square meters NA 143 135 - 145 mEq/L 06/07/2019 2:57 PM EST [facility] K 4.3 3.5 - 5.5 mmol/L 06/07/2019 2:57 PM EST [facility] CL 108 96 - 110 mmol/L 06/07/2019 2:57 PM EST [facility] CARBON DIOXIDE (CO2) 31 21 - 32 mmol/L 06/07/2019 2:57 PM EST [facility] ANION GAP 4 3 - 11 06/07/2019 2:57 PM EST [facility] CALCIUM 9.1 8.5 - 10.5 mg/dL 06/07/2019 2:57 PM EST [facility] Albumin 3.5 3.2 - 5.0 G/dL 06/07/2019 2:57 PM EST [facility] SGPT 18 10 - 60 U/L 06/07/2019 2:57 PM EST [facility] ALK PHOS 143(H) 42 - 121 U/L 06/07/2019 2:57 PM EST [facility] TOTAL PROTEIN (TP) 6.2 6.0 - 8.0 G/dL 06/07/2019 3:20 PM EST [facility] BILIRUBIN TOTAL 0.6 0.0 - 1.4 mg/dL 06/07/2019 3:20 PM EST [facility] SGOT 19 10 - 42 U/L 06/07/2019 3:20 PM EST [facility] 06/07/2019 10:4 6 AM EST 06/07/2019 10:47 AM EST Angus Nevarez MD LAB Performing Organization Address City/State/[facility] Co de Phone Number [facility] documented in this encounter Visit Diagnoses Diagnosis Chronic fatigue- Primary Other malaise and fatigue Vitamin D deficiency Unspecified vitamin D deficiency History of anemia Personal history of diseases of blood and blood-forming organs History of vitamin D deficiency Personal history of nutritional deficiency documented in this encounter Additional Health Concerns Infection Onset Date Last Indicated Resolved Time COVID-19 Comment:Tested positive on 06/0706/07/2022 06/12/2022 08/24/19 23 10:28 AM EDT documented as of this encounter Care Teams Chemical Supervisor Relationship Specialty Start Date End Date Angus Nevarez MD [address] [place] [address] PCP - General 02/17/1997 07/25/20 Jorge Sage PA-C [address] [place] [address] PCP - General Internal Medicine 07/26/20 documented as of this encounter
--- OUTSIDE RECORDS SUMMARY | 2025-02-26 10:43 | XMS_ITS | Encounter Summary ---
Author Organization [facility] Address [address] [place] [address] Care Team Providers Care Legal Activity Adjudicator Name Role Phone Angus Nevarez MD Primary Care Provider [phone] Jorge Sage PA-C Primary Care Provider + [phone] Encounter Details Date Type Department Care Team Description 06/27/2019 Business Doc Medical Records [address] [place] [address] Abstract, Provider Social History Tobacco Use Types [...] documented as of this encounter Care Teams Legal Activity Adjudicator Relationship Specialty Start Date End Date Angus Nevarez MD [address] [place] [address] PCP - General 02/17/1997 07/25/20 Jorge Sage PA-C [address] [place] [address] PCP - General Internal Medicine 07/26/20 documented as of this encounter
--- OUTSIDE RECORDS SUMMARY | 2025-02-26 10:43 | XMS_ITS | Encounter Summary ---
Author Organization [facility] Address [address] [place] [address] Care Team Providers Care Overnight Caregiver Name Role Phone Angus Nevarez MD Primary Care Provider [phone] Jorge Sage PA-C Primary Care Provider [phone] Encounter Details Date Type Department Care Team Description 11/19/2017 Hospital Medical Records [address] [place] [address] Kassidy Araiza MD [address] [place] [address] [phone] Social History Tobacco Use Types Packs/Day Years [...] documented as of this encounter Care Teams Overnight Caregiver Relationship Specialty Start Date End Date Angus Nevarez MD [address] [place] [address] PCP - General 02/17/1997 07/25/20 Jorge Sage PA-C [address] [facility] [place] [address] PCP - General Internal Medicine 07/26/20 documented as of this encounter
--- OUTSIDE RECORDS SUMMARY | 2025-02-26 10:43 | XMS_ITS | Encounter Summary ---
Author Organization [facility] Address [address] [place] [address] Care Team Providers Care Nuclear Plant Technical Advisor Name Role Phone Angus Nevarez MD Primary Care Provider [phone] Jorge Sage PA-C Primary Care Provider + [phone] Encounter Details Date Type Department Care Team Description 04/05/2010 Transformer Tester Report Medical Records [address] [place] [address] Fernandez Lakhani [address] [place] [address] Social History Tobacco Use Types Packs/Day Years [...] documented as of this encounter Care Teams Nuclear Plant Technical Advisor Relationship Specialty Start Date End Date Angus Nevarez MD [address] [place] [address] PCP - General 02/17/1997 07/25/20 Jorge Sage PA-C [address] [place] [address] PCP - General Internal Medicine 07/26/20 documented as of this encounter
--- OUTSIDE RECORDS SUMMARY | 2025-02-26 10:43 | XMS_ITS | Encounter Summary ---
Author Organization [facility] Address [address] [place] [address] Care Team Providers Care Optomechanical Engineer Name Role Phone Jorge Sage PA-C Primary Care Provider [phone] Encounter Details Date Type Department Care Team Description 07/20/2023 Customer Support Assistant Report Medical Records [address] [place] [address] Sarah Gordillo DPM Social History Tobacco Use [...] on filedocumented in this encounter Care Teams Optomechanical Engineer Relationship Specialty Start Date End Date Jorge Sage PA-C [address] [place], [place] [phone] PCP - General Internal Medicine 07/26/20 documented as of this encounter
--- OUTSIDE RECORDS SUMMARY | 2025-02-26 10:43 | XMS_ITS | Encounter Summary ---
Author Organization [facility] Address [address] [place] [address] Care Team Providers Care Tank Assembler Name Role Phone Angus Nevarez MD Primary Care Provider [phone] Jorge Sage PA-C Primary Care Provider Encounter Details Date Type Department Care Team Description 08/13/2017 Manager Inventory Report Medical Records [address] [place] [address] Fortunato Muller MD Social History Tobacco Use [...] documented as of this encounter Care Teams Tank Assembler Relationship Specialty Start Date End Date Angus Nevarez MD [address] [place], [place] [phone] PCP - General 02/17/1997 07/25/20 Jorge Sage PA-C [address] [place] [address] PCP - General Internal Medicine 07/26/20 documented as of this encounter
--- OUTSIDE RECORDS SUMMARY | 2025-02-26 10:44 | XMS_ITS | Encounter Summary ---
Author Organization [facility] Address [address] [place] [address] Care Team Providers Care Fresh Work Inspector Name Role Phone Jorge Sage PA-C Primary Care Provider [phone] Encounter Details Date Type Department Care Team Description 09/04/2022 [facility] [address] [place] [address] Abstract, Provider Social History Tobacco Use Types [...] suspected to have Coronavirus/COVID-19? No / Unsure 09/04/2022 11:07 AM EDT documented as of this encounter Plan of Treatment Not on file documented as of this encounter Visit Diagnoses Not on filedocumented in this encounter Care Teams Fresh Work Inspector Relationship Specialty Start Date End Date Jorge Sage PA-C [address] [place] [address] PCP - General Internal Medicine 07/26/20 documented as of this encounter
--- OUTSIDE RECORDS SUMMARY | 2025-02-26 10:44 | XMS_ITS | Encounter Summary ---
Author Organization [facility] Address [address] [place] [address] Care Team Providers Care Pigment Pumper Name Role Phone Angus Nevarez MD Primary Care Provider [phone] Jorge Sage PA-C Primary Care Provider [phone] Encounter Details Date Type Department Care Team Description 01/19/2010 Filter Assembler Report Medical Records [address] [place] [address] Rehab., [facility] Social History Tobacco Use Types Packs/Day [...] documented as of this encounter Care Teams Pigment Pumper Relationship Specialty Start Date End Date Angus Nevarez MD [address] [place] [address] PCP - General 02/17/1997 07/25/20 Jorge Sage PA-C [address] [place] [address] PCP - General Internal Medicine 07/26/20 documented as of this encounter
--- OUTSIDE RECORDS SUMMARY | 2025-02-26 10:44 | XMS_ITS | Encounter Summary ---
Author Organization [facility] Address [address] [place] [address] Care Team Providers Care Local Truck Driver Name Role Phone Jorge Sage PA-C Primary Care Provider [phone] Encounter Details Date Type Department Care Team Description 02/05/2023 Business Doc Medical Records [address] [place] [address] Abstract, Provider Social History Tobacco Use Types [...] suspected to have Coronavirus/COVID-19? No / Unsure 02/02/2023 11:05 AM EDT documented as of this encounter Plan of Treatment Not on file documented as of this encounter Visit Diagnoses Not on filedocumented in this encounter Care Teams Local Truck Driver Relationship Specialty Start Date End Date Jorge Sage PA-C [address] [place] [address] PCP - General Internal Medicine 07/26/20 documented as of this encounter
--- OUTSIDE RECORDS SUMMARY | 2025-02-26 10:44 | XMS_ITS | Encounter Summary ---
Author Organization [facility] Address [address] [place] [address] Care Team Providers Care First Dyer Name Role Phone Angus Nevarez MD Primary Care Provider [phone] Jorge Sage PA-C Primary Care Provider [phone] Encounter Details Date Type Department Care Team Description 11/09/2010 Marine Reporter Report Medical Records [address] [place] [address] Fortunato Muller MD Social History Tobacco Use [...] documented as of this encounter Care Teams First Dyer Relationship Specialty Start Date End Date Angus Nevarez MD [address] [place], [place] [phone] PCP - General 02/17/1997 07/25/20 Jorge Sage PA-C [address] [place] [address] PCP - General Internal Medicine 07/26/20 documented as of this encounter
--- OUTSIDE RECORDS SUMMARY | 2025-02-26 10:44 | XMS_ITS | Encounter Summary ---
Author Organization [facility] Address [address] [place] [address] Care Team Providers Care Rn Teacher Name Role Phone Angus Nevarez MD Primary Care Provider [phone] Jorge Sage PA-C Primary Care Provider Encounter Details Date Type Department Care Team Description 06/21/2007 Hospital Medical Records [address] [place] [address] Genevieve Gomez MD Social History Tobacco Use Types Packs/Day [...] documented as of this encounter Care Teams Rn Teacher Relationship Specialty Start Date End Date Angus Nevarez MD [address] [place], [place] [id number] PCP - General 02/17/1997 07/25/20 Jorge Sage PA-C [address] [place] [address] PCP - General Internal Medicine 07/26/20 documented as of this encounter
--- OUTSIDE RECORDS SUMMARY | 2025-02-26 10:44 | XMS_ITS | Encounter Summary ---
Author Organization [facility] Address [address] [place] [address] Care Team Providers Care Inspector Rag Sorting Name Role Phone Jorge Sage PA-C Primary Care Provider [phone] Encounter Details Date Type Department Care Team Description 12/04/2022 Video Producer Report Medical Records [address] [place] [address] Sarah Gordillo DPM Social History Tobacco Use [...] on filedocumented in this encounter Care Teams Inspector Rag Sorting Relationship Specialty Start Date End Date Jorge Sage PA-C [address] [place], [place] [id number] PCP - General Internal Medicine 07/26/20 documented as of this encounter
--- OUTSIDE RECORDS SUMMARY | 2025-02-26 10:44 | XMS_ITS | Encounter Summary ---
Author Organization [facility] Address [address] [place] [address] Care Team Providers Care Bill Hiker Name Role Phone Jorge Sage PA-C Primary Care Provider [phone] Encounter Details Date Type Department Care Team Description 05/26/2022 Development And Housing Director Report Medical Records [address] [place] [address] Sarah Gordillo DPM Social History Tobacco Use [...] documented as of this encounter Care Teams Bill Hiker Relationship Specialty Start Date End Date Jorge Sage PA-C [address] [place], [place] [phone] PCP - General Internal Medicine 07/26/20 documented as of this encounter
--- OUTSIDE RECORDS SUMMARY | 2025-02-26 10:44 | XMS_ITS | Encounter Summary ---
Author Organization [facility] Address [address] [place] [address] Care Team Providers Care Brake Mechanic Name Role Phone Angus Nevarez MD Primary Care Provider + [phone] Jorge Sage PA-C Primary Care Provider [phone] Encounter Details Date Type Department Care Team Description 07/13/2016 Business Doc Medical Records [address] [place] [address] Abstract, Provider Social History Tobacco Use Types [...] documented as of this encounter Care Teams Brake Mechanic Relationship Specialty Start Date End Date Angus Nevarez MD [address] [place] [address] PCP - General 02/17/1997 07/25/20 Jorge Sage PA-C [address] [place] [address] PCP - General Internal Medicine 07/26/20 documented as of this encounter
--- OUTSIDE RECORDS SUMMARY | 2025-02-26 10:44 | XMS_ITS | Encounter Summary ---
Author Organization [facility] Address [address] [place] [address] Care Team Providers Care Denture Technician Name Role Phone Angus Nevarez MD Primary Care Provider + [phone] Jorge Sage PA-C Primary Care Provider [phone] Encounter Details Date Type Department Care Team Description 01/05/2017 Membership Sales Representative Report Medical Records [address] [place] [address] Govind Phillips MD Social History Tobacco Use Types Packs/Day [...] documented as of this encounter Care Teams Denture Technician Relationship Specialty Start Date End Date Angus Nevarez MD [address] [place], [place] [phone] PCP - General 02/17/1997 07/25/20 Jorge Sage PA-C [address] [place] [address] PCP - General Internal Medicine 07/26/20 documented as of this encounter
--- OUTSIDE RECORDS SUMMARY | 2025-02-26 10:44 | XMS_ITS | Encounter Summary ---
Author Organization [facility] Address [address] [place] [address] Care Team Providers Care Carton Machine Operator Name Role Phone Angus Nevarez MD Primary Care Provider [phone] Jorge Sage PA-C Primary Care Provider Encounter Details Date Type Department Care Team Description 11/20/2016 Engineering Technical Analyst Report Medical Records [address] [place] [address] Fortunato Muller MD Social History Tobacco Use [...] documented as of this encounter Care Teams Carton Machine Operator Relationship Specialty Start Date End Date Angus Nevarez MD [address] [place], [place] [phone] PCP - General 02/17/1997 07/25/20 Jorge Sage PA-C [address] [place] [address] PCP - General Internal Medicine 07/26/20 documented as of this encounter
--- OUTSIDE RECORDS SUMMARY | 2025-02-26 10:44 | XMS_ITS | Encounter Summary ---
Author Organization [facility] Address [address] [place] [address] Care Team Providers Care Evaporative Cooler Installer Name Role Phone Angus Nevarez MD Primary Care Provider [phone] Jorge Sage PA-C Primary Care Provider [phone] Encounter Details Date Type Department Care Team Description 02/05/2017 Data Analyst Report Medical Records [address] [place] [address] Fortunato Muller MD Social History Tobacco Use [...] documented as of this encounter Care Teams Evaporative Cooler Installer Relationship Specialty Start Date End Date Angus Nevarez MD [address] [place], [place] [phone] PCP - General 02/17/1997 07/25/20 Jorge Sage PA-C [address] [place] [address] PCP - General Internal Medicine 07/26/20 documented as of this encounter
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
== END 2025-02-26 10:14 | disposition home or self-care (01) ==
LOC: HO.HSM 09:39
PROVIDERS: PCP Internal Medicine; Visit Provider Psychiatry & Neurology Neurology
DX: G35.D Multiple sclerosis, unspecified (principal); N32.89 Other specified disorders of bladder; R53.83 Other fatigue
CPT/HCPCS: 99214

== ENCOUNTER → 2025-02-26 09:39 | Outpatient (BNVA) | payer MEDICARE, OTHER, SELFPAY | PROVIDERS: PCP Internal Medicine; Visit Provider Psychiatry & Neurology Neurology | DX: R53.83 Other fatigue (principal); N32.89 Other specified disorders of bladder; G35.D Multiple sclerosis, unspecified | CPT/HCPCS: 99212 ==

== ENCOUNTER 2025-05-05 13:00 | Emergency (ER) | payer MEDICARE, OTHER, SELFPAY ==
--- OUTSIDE RECORDS SUMMARY | 2024-03-04 14:05 | XMS_ITS | Encounter Summary ---
Author Organization [facility] [place] [address] Care Team Providers Care Test Analyst Name Role Phone Jorge Sage Primary Care Provider [phone] Encounter Details Date Type Department Care Team (Late st Contact Info) Description 03/04/2024 3:05 PM EDT Hospital Encounter TH HISTORIC ENCOUNTERS EASTERN CONVERSION ONLY Alexi Davidson MD [address] [place] [phone] Social History Tobacco Use Types Packs/Day Years Used Date Smoking Tobacco: Former Cigarettes 0.8 9.9 0 1960 - 07/26/1970 Alcohol Use Standard Drinks/Week Comments No 0 (1 standard drink = 0.6 oz pur e alcohol) Housing Instability Answer Date Recorde d Are you worried that in the next 2 months you may not have stable housing? No 09/30/2024 Food Access & Nutrition Answer Date Rec orded Do you have access to a vari ety of food including fruits and vegetables? Yes 09/30/2024 Access to Healthcare Answer Date Record ed Within the last 3 months, jose w many times did you visit the emergency department for your medical care? 0 09/30/2024 Health Literacy Answer Date Recorded How often do you need to hav e someone help you when you read instructions, pamphlets, or other written material from your doctor or pharmacy? Never 09/30/2024 Caregiver: How often do you need to have someone help you when you read instructions, pamphlets, or other written material from your doctor or pharmacy? Not on file 09/30/2024 Financial Risk Answer Date Recorded How hard is it for you to pa y for the very basics like food, housing, medical care, and air conditioning / heating? Not very hard 09/30/2024 Transportation Answer Date Recorded Has the lack of transportati on kept you from meetings, work, or from getting things needed for daily living? No Has the lack of transportati on kept you from medical appointments or from getting medications? No 09/30/2024 Social Isolation Answer Date Recorded How often do you feel lonely or isolated from ose around you? Never 09/30/2024 Food Risk Answer Date Recorded Within the past 12 months we worried whether our food would run out before we got money to buy more. Never true 09/30/2024 Within the past 12 months th e food we bought just didn't last and we didn't have money to get more. Never true 09/30/2024 Dependent Care Answer Date Recorded Do you need help finding or paying for care for your loved ones. For example, child care director or elderly care for an older adult? No 09/30/2024 Education Answer Date Recorded Do you think completing more education or training, like finishing a GED, going to college, or learning a trade, would be helpful for you? No 09/30/2024 Employment and Income Answer Date Recor ded During the last four weeks, have you been actively looking for work? No 09/30/2024 Living Situation Answer Date Recorded What is your living situation? Unrecognized valu e 09/30/2024 Comments No Sex and Gender Information Value Date Recorded Sex Assigned at Not on file Legal Sex Female 3:53 PM EST Gender Identity Not on file Sexual Orientation Not on file documented as of this encounter Last Filed Vital Signs Vital Sign Reading Time Taken Comments Blood Pressure 142/61 03/04/2024 3:09 PM EDT Sit ting Left arm Pulse 77 03/04/2024 3:09 PM EDT Temperature - - Respiratory Rate - - Oxygen Saturation - - Inhaled Oxygen Concentration - - Weight 63.5 kg (140 lb) 03/04/2024 3:09 PM EDT Height 167.6 cm (5' 6 ) 09/04/2023 3:11 PM EDT Body Mass Index 22.6 10/02/2023 12:55 PM EDT documented in this encounter Progress Notes * Alexi Davidson MD - 03/04/2024 3:00 PM EDT Diagnosis/treatment: Anemia. 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 A CBC on 10/14/2020 showed a WBC 4.5, hemoglobin 11.8 with MCV 98, and platelet count 373,000. She was hospitalized from 12/11/2020-12/18/2020 due to a left tibial fracture. She underwent a fixation procedure on 12/13/2020. The CBC on 12/17/2020 showed a hemoglobin 6.7 with MCV 91. She was transfused with RBCs x1 unit. A CBC on 05/24/2021 showed a WBC 5.2, hemoglobin 12.0 with MCV 95, platelet count 341,000. She was hospitalized from 08/26/2021-08/31/2021 due to UTI/urosepsis. A CBC on admission on 08/26/2021 showed WBC 18.4, hemoglobin 11.1 with MCV 97, platelet count 159,000. She was treated with IV antibiotics and aggressive fluid resuscitation. A percent transferrin saturation on 08/31/2021 was 26. A ferritin was 220. B12 and folate levels were normal. A CBC on 09/02/2021 showed a hemoglobin 6.9 with MCV 97. She was transfused RBCs x1 unit. She received Procrit x1. A CBC on 10/10/2021 showed WBC 5.7, hemoglobin 11.7 with MCV 97, and platelet count 354,000. A percent transferrin saturation was 18. B12 and folate levels were normal. A CBC on 01/27/2022 showed WBC 5.1, hemoglobin 11.3 with MCV 98, platelet count 320,000. A reticulocyte count was 1.7%. A creatinine was 0.8. A calcium was 9.4. LFTs were normal apart from a mild elevation of alkaline phosphatase 163. A ferritin was 77. B12 and folate levels were normal. An LDH and haptoglobin were normal. An FARA and rheumatoid factor were negative. Immunoglobulin levels were normal. A serum immunofixation was negative. An SPEP showed no M spike. A serum kappa/lambda light chain ratio was normal at 1.2. A CBC on 08/22/2022 showed WBC 4.6, hemoglobin 9.6 with MCV 100, and platelet count 314,000. A percent transferrin saturation was 13. A ferritin was 20. B12 and folate levels were elevated. A CBC on 09/04/2022 showed WBC 5.4, hemoglobin 10.7 with MCV 99, and platelet count 469,000. A CBC on 02/14/2023 showed WBC 5.7, hemoglobin 11.7 with MCV 98, and platelet count 330,000. A percent transferrin saturation was 39. A ferritin was 16. A folate level was normal. A CBC on 08/31/2023 showed WBC 6.6, hemoglobin 11.5 with MCV 97, and platelet count 321,000. A percent transferrin saturation was 19. A ferritin was 20. B12 and folate levels were elevated. A CBC on 02/28/2024 showed WBC 5.2, hemoglobin 9.8 with MCV 97, and platelet count 3 26,000. A percent transferrin saturation was 26. A ferritin was 58. B12 and folate levels were elevated. 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 She denies clinical bleeding, including no epistaxis, hemoptysis, hematemesis, hematuria, melena, or hematochezia. She denies B symptoms. She has chronic lumbar back pain. She denies new or unusual bone pain. She remains on oral iron 1 tablet daily. She tolerates oral iron well without side effects. She remains on B12 1000 mcg daily. She denies headaches or visual changes. She denies cough, hemoptysis, dyspnea on exertion. She denies nausea or abdominal pain. She denies a change in bowels. She reports an intact appetite and stable weight. She was diagnosed with multiple sclerosis in 1990. Past medical history: Vitamin D deficiency, multiple sclerosis, esophageal dysmotility, osteopenia, chronic lumbar back pain, osteoarthritis. Current medications: Provigil, ondansetron gabapentin, naproxen, docusate, oxybutynin, sertraline, oral iron 1 tablet daily B12 1 tablet daily vitamin D vitamin D. Allergies: Compazine causes anaphylaxis, acetaminophen causes anaphylaxis, seafood causes anaphylaxis. Family history: Her parents had no history of cancer. Maternal aunt was diagnosed with breast cancer and in her early 60s from that cancer. Her 4 sisters and 4 brothers have no history of cancer. Her son has nohistory of cancer. Social history: She is . She has 1 son. She has 3 grandchildren. She is a former smoker who quit smoking at age 30. She denies alcohol use. Review of systems: The remainder of a 10 point review of systems was unremarkable. Physical examination: HEENT: Sclerae anicteric, normal oropharyngeal membrane. Neck: No lymphadenopathy. Lungs: Clear to auscultation. Heart: No murmurs. Abdomen: Soft, nontender, no organomegaly or masses. Extremities: No edema. Skin: No rash. Assessment/plan: The patient is a 82-year-old female who was referred for evaluation of a normocytic anemia. A hemoglobin was normal as recently as 09/2021. A hemoglobin was only mildly depressed in 01/2022 and in 08/2022 and was normal in 01/2023.. She underwent a gastric bypass procedure in 2000, which may reduce theabsorption of iron, folate, and B12. She underwent an EGD and colonoscopy in 2018 which were unremarkable. She remains on oral iron replacement and oral B12 placement. She tolerates the oral iron well without side effects. She has undergone an endoscopic evaluation in 2018 and extensive laboratory evaluation for causes of anemia in 01/2022. I do not believe she needs further diagnostic evaluation.She can be followed with CBCs every 6 months. I recommend continuing the oral iron and oral B12.. documented in this encounter Plan of Treatment Upcoming Encounters Date Type Department Care Team (Late st Contact Info) Description 07/08/2025 10:45 AM EST Office Visit [address] [address] Jorge Sage PA [address] [place] [address] 09/17/2025 2:30 PM EDT Office Visit [facility] Hematology Oncology [address] [place] [address] Alexi Davidson MD [address] [place] [address] documented as of this encounter Procedures Procedure Name Priority Date/Time Associated Diagnosis Comments ..MISCELLANEOUS REFERENCE LAB TEST 03/04/2024 documented in this encounter Results * Miscellaneous reference lab test (03/04/2024) us Provider Onbase LAB BLOOD ORDERABLES Final Re sult documented in this encounter Visit Diagnoses Not on filedocumented in this encounter Additional Health Concerns Infection Onset Date Last Indicated Resolved Time C. difficile Rule-Out 07/15/2024 07/15/20242024 2:46 PM EST documented as of this encounter Care Teams Test Analyst Relationship Specialty Start Date End Date Jorge Sage PA PCP - General Internal Medicine 07/26/20 06/05/24 documented as of this encounter
--- OUTSIDE RECORDS SUMMARY | 2024-05-05 09:15 | XMS_ITS ---
Author Organization [facility] Address [address] [facility] [address] [place] [address] Care Team Providers Care Pot Filler Name Role Phone Jorge Al Primary Care Provider Unavail TIFFANY Cannon Unavailable [phone] REASON FOR VISIT 3-4 month Encounters Encounter Location Date Provider Diagnosis [facility] [address] [place] [address] 05/05/2024 TIFFANY GORDILLO Plan Of Treatment Next Appt Details Provider Name:TIFFANY GORDILLO, 06/08/2025 11:00:00 AM, [address] [facility] [address], [place], [address], Progress Notes * FRANCISCO LuisaGianni:1940 (84 yo F)Acc No.[id number]:05/05/2024 Progress Note Patient: Deloris BULLOCK Provider: Carmelita Gordillo DPM :1940 A ge:83 Y S ex:Female Date:05/05/2024 Address:[id number] Pcp:Jorge Al Subjective: * Chief Complaints: * 1 . 3-4 month. * Medical History: Objective: * Vitals: Assessment: Plan: * Treatment: * Billing Information: * Visit Code: * Procedure Codes: * Electronic signature of LORAINE GORDILLO D.P.M on 05/05/2025 at 11:06 PM EST Sign off status: Pending * Provider: Carmelita Gordillo DPM Date: 07/06/2023 Generated for Reuben vaughn/Alysa/Ericka on: 07/06/2024 11:06 PM EST
--- OUTSIDE RECORDS SUMMARY | 2024-06-23 09:15 | XMS_ITS ---
Author Organization [facility] Address [address] [facility] [address] [place] [address] Care Team Providers Care Dispatch Coordinator Name Role Phone Jorge Al Primary Care Provider Unavail TIFFANY Cannon Unavailable [phone] REASON FOR VISIT Rt foot procedure Encounters Encounter Location Date Provider Diagnosis [facility] [address] [facility] [address] [place] [address] 06/23/2024 TIFFANY GORDILLO Plan Of Treatment Next Appt Details Provider Name:TIFFANY GORDILLO, 06/08/2025 11:00:00 AM, [address] [facility], [facility] [address], [place], [address], Progress Notes * Mik MESAB:1940 (84 yo F)Acc No.[id number]:06/23/2024 Patient: Luisa BULLOCKria Provider: Carmelita Gordillo DPM :1940 A ge:83 Y S ex:Female Date:06/23/2024 Address:[id number] Pcp:Jorge Al * Billing Information: * Visit Code: * Procedure Codes: * Electronic signature of LORAINE GORDILLO D.P.M on 05/05/2025 at 11:08 PM EST Sign off status: Pending * Provider: Carmelita Gordillo DPM Date: 0 06/23/2024 Generated for Printi ng/Faxing/eTransmitting on: 1 07/06/2024 11:08 PM EST
--- OUTSIDE RECORDS SUMMARY | 2024-09-05 09:15 | XMS_ITS ---
Author Organization [facility] Address [address] [facility] [address] [place] [address] Care Team Providers Care Saw Setter Name Role Phone Jorge Al Primary Care Provider Unavail TIFFANY Cannon Unavailable [phone] REASON FOR VISIT 3-4 month Encounters Encounter Location Date Provider Diagnosis [facility] [address] [facility] [address] [place] [address] 09/05/2024 TIFFANY GORDILLO Plan Of Treatment Next Appt Details Provider Name:TIFFANY GORDILLO, 06/08/2025 11:00:00 AM, [address] [facility] [address], [place], [address], Progress Notes * Daphne MESA:1940 (84 yo F)Acc No.[id number]:09/05/2024 Progress Note Patient: Deloris BULLOCK Provider: Carmelita Gordillo DPM :1940 A ge:83 Y S ex:Female Date:09/05/2024 Address:[id number] Pcp:Jorge Al Subjective: * Chief Complaints: * 1 . 3-4 month. * Medical History: Objective: * Vitals: Assessment: Plan: * Treatment: * Billing Information: * Visit Code: * Procedure Codes: * Electronic signature of LORAINE GORDILLO D.P.M on 05/05/2025 at 11:07 PM EST Sign off status: Pending * Provider: Carmelita Gordillo DPM Date: 0 09/05/2024 Generated for Reuben vaughn/Alysa/Ericka on: 1 07/06/2024 11:07 PM EST
--- OUTSIDE RECORDS SUMMARY | 2024-12-31 08:00 | XMS_ITS ---
Author Organization [facility] Address [address] [facility] [address] [place] [address] Care Team Providers Care Lunchroom Worker Name Role Phone Jorge Al Primary Care Provider Unavail TIFFANY Cannon Unavailable [phone] REASON FOR VISIT 3-4 month Encounters Encounter Location Date Provider Diagnosis [facility] [address] [facility] [address] [place] [address] 12/31/2024 TIFFANY GORDILLO Plan Of Treatment Next Appt Details Provider Name:TIFFANY GORDILLO, 06/08/2025 11:00:00 AM, [address] [facility] [address], [place], [address], Progress Notes * Daphne MESA:1940 (84 yo F)Acc No.[id number]:12/31/2024 Progress Note Patient: Deloris BULLOCK Provider: Carmelita Gordillo DPM :1940 A ge:84 Y S ex:Female Date:12/31/2024 Address:[id number] Pcp:Jorge Al Subjective: * Chief Complaints: * 1 . 3-4 month. * Medical History: Objective: * Vitals: Assessment: Plan: * Treatment: * Billing Information: * Visit Code: * Procedure Codes: * Electronic signature of LORAINE GORDILLO D.P.M on 05/05/2025 at 11:07 PM EST Sign off status: Pending * Provider: Carmelita Gordillo DPM Date: 0 12/31/2024 Generated for Reuben vaughn/Alysa/Ericka on: 1 07/06/2024 11:07 PM EST
--- NOTE | ~2025-05-05 | XR_ITS ---
CLINICAL HISTORY: Shoulder pain 3 view left shoulder Comparison: None provided Findings: No acute fracture. No dislocation. Degenerative changes acromioclavicular joint. Diffuse demineralization. No erosions. No radiopaque foreign body. IMPRESSION: 1. No acute findings This document has been electronically signed by: Florence Rivera MD on 05/05/2025 19:02:30
--- NOTE | ~2025-05-05 | CT_ITS ---
EXAMINATION: CT HEAD WITHOUT IV CONTRAST HISTORY: Left arm numbness weakness since . TECHNIQUE: Unenhanced helical CT of the head was performed per standard departmental protocol. Coronal and sagittal reformats of the head were also evaluated. One or more of the following techniques was used for dose reduction: Automated exposure control, adjustment of the mA and/or kV according to patient size, use of iterative reconstruction technique. DLP: 693 mGy-cm COMPARISON: There are no prior studies available for comparison. FINDINGS: BRAIN: The brain parenchyma is unremarkable. There is normal thompson/white differentiation. The ventricular system is normal in size and configuration. There is no mass effect or midline shift. No intra- or extra-axial fluid collections are identified. SINUSES: The visualized paranasal sinuses are clear. The mastoid air cells and middle ear cavities are well pneumatized. ORBITS: The visualized orbits are unremarkable. BONES/SOFT TISSUES: The extracranial soft tissues are unremarkable. The calvarium is intact. Degenerative changes at the temporomandibular joints. No suspicious lytic or sclerotic lesions. CT/CT head/brain wo IV con IMPRESSION: No acute intracranial abnormality. Electronically signed by: Delisa Vergara MD 05/05/2025 02:37 PM [facility]
--- NOTE | ~2025-05-05 | CT_ITS ---
CLINICAL HISTORY: L arm heaviness subjective weakness CT angiography head and neck with contrast. 3D Postprocessing. Comparison: CT/UT/SR - CT HEAD WITHOUT IV CONTRAST - 05/05/25 14:14 EST Findings: Aortic arch and arch vessels are patent. Atherosclerotic vascular disease. Bilateral common carotid arteries are patent. Moderate calcified plaque at bilateral carotid bifurcations/origin internal carotid arteries resulting in 50% stenosis on the right and less than 50% stenosis on the left. Bilateral external carotid arteries and bilateral vertebral arteries are patent. Bilateral intracranial internal carotid arteries are patent. Atherosclerotic vascular disease of cavernous and supraclinoid segments with no hemodynamically significant stenosis. Vertebral basilar junction is unremarkable. Small focal calcified plaque in proximal vertebral artery and otherwise vertebral artery although small appears to be unremarkable. Bilateral anterior, middle and posterior cerebral arteries are patent. No aneurysm. The visualized thyroid gland is unremarkable. No cervical mass or fluid collection. Lung apices clear. No acute fracture. IMPRESSION: 1. CT angiography neck demonstrates atherosclerotic vascular disease with 50% stenosis on the right and less than 50% stenosis on the left. 2. Small focal calcified plaque of proximal segment vertebral artery. 3. No intracranial large vessel occlusion. This document has been electronically signed by: Florence Rivera MD on 05/05/2025 19:21:33
[2025-05-05 13:13] VITALS: BP 146/65; PULSE 67; RESP 18; TEMP 36.7; O2SAT 97; BMI 22.6
--- NOTE | 2025-05-05 13:20 | ECG_ITS ---
Test Reason : LEFT ARM NUMBNESS Blood Pressure : */* mmHG Vent. Rate : 80 BPM Atrial Rate : 80 BPM P-R Int : 140 ms QRS Dur : 68 ms QT Int : 360 ms P-R-T Axes : 55 -34 33 degrees QTcB Int : 415 ms Normal sinus rhythm Left axis deviation Low voltage QRS Cannot rule out Anterior infarct , age undetermined Abnormal ECG When compared with ECG of 18-May-2023 09:50, Minimal criteria for Anterior infarct are now Present Referred By: Steven Hector Electronically Signed By: CHICO YING MD
--- NOTE | 2025-05-05 13:20 | ED.NEUROSD ---
HPI - Neuro Symptoms/Deficit General Chief Complaint: Neuro Symptoms/Deficit Stated Complaint: lost feeling in left side Time Seen by Provider: 05/05/25 17:55 History of Present Illness ED Provider: Meme Sims NP HPI Narrative: 84-year-old female medical history that is significant for hypertension, MS presents to the ED from home with chief complaint of left upper extremity, as well as left side of the neck pain, heaviness, and weakness ongoing for 5 days. Patient reports that she initially woke up last 04/30/2025 feeling as though she had slept the wrong way, endorsing discomfort on the left side of the neck, creating discomfort when lifting the left arm above the head. She used aspartame cream without much relief. She then noted the arm felt weak or when trying to lift a bowl of food, and had discomfort in the same area. She denies any weakness in the hand strength, but does report that she can not lift the left arm as high as she can lift the right arm. No difficulty with walking or mobility, speech, or thought processing. No abnormal smile. Denies any headache, dizziness or lightheadedness, episodes of syncope, or head trauma. No chest pain or pressure, shortness of breath, abdominal pain. No fever, chills, recent illnesses. Related Data Home Medications ?Medication ?Instructions ?Recorded ?Confirmed alendronate 70 mg tablet 70 mg PO QWEEK 12/19/24 cholecalciferol (vitamin D3) 25 25 mcg PO DAILY 12/19/24 mcg (1,000 unit) capsule ferrous sulfate 325 mg (65 mg 325 mg PO DAILY 12/19/24 iron) tablet Previous Rx's ?Medication ?Instructions ?Recorded amlodipine 2.5 mg tablet (Norvasc) 2.5 mg PO DAILY #30 tabs 05/18/23 oxybutynin chloride 15 mg 15 mg PO DAILY #90 tabs 02/26/25 tablet,extended release 24 hr ibuprofen 600 mg tablet 600 mg PO Q8H PRN fever or pain 7 05/05/25 days #20 tabs lidocaine 5 % topical patch 1 patch topical DAILY 7 days #15 ea 05/05/25 (Lidoderm) methocarbamol 500 mg tablet 1,000 mg (2 x 500 mg) PO QID PRN 05/05/25 spasms 5 days #28 tabs Allergies Allergy/AdvReac Type Severity Reaction Status Date / Time acetaminophen (Tylenol) Allergy Unknown Unknown Verified 05/05/25 13:16 shellfish derived Allergy Anaphylaxis Verified 05/05/25 13:16 Compazine Allergy Unknown Unknown Uncoded 05/05/25 13:16 Review of Systems Review of Systems: ROS is otherwise negative unless mentioned in HPI. [facility] Past Medical History Medical History (Updated 05/06/25 @ 00:00 by Ayana Arellano) Depression Insomnia Dysthymia Thoracic neuralgia Peripheral neuropathy Chronic fatigue syndrome Spastic bladder Multiple sclerosis Family History Family History (Updated 12/19/24 @ 08:26 by Jeaneth Brantley CMA) Sister Myasthenia gravis Social History Social History Advance Directives: No Advance Directives Information Provided: No Physical Exam Exam: Exam: Nursing notes and vital signs reviewed. Constitutional: Well-appearing, NAD. Alert. Oriented X3. Eyes: Pupils equal, round and reactive to light. EOMI. ENT: Oropharynx pink, moist. Uvula midline. Neck: Normal inspection. Neck supple. No C-spine tenderness, normal ROM. CVS: Normal heart rate and rhythm. Pulses normal. Respiratory: No respiratory distress. Breath sounds normal. Abdomen: Soft, nondistended, nontender. Skin: Skin warm and dry. Normal skin color. Extremities: No lower extremity edema. Reported inability of forward flexion of the left shoulder. Neuro: Oriented X 3. No motor deficit. Cranial nerves III-XII intact. Vital Signs: Vital Signs: Last Vital Signs Temp 98.0 F 05/05/25 21:10 Pulse 64 05/05/25 21:10 Resp 18 05/05/25 21:10 BP 178/89 H 05/05/25 21:10 Pulse Ox 99 05/05/25 21:10 O2 Del Method Room Air 05/05/25 21:10 BMI result Body Mass Index 22.6 Course Course Course Narrative: RME: Medications Administered Discontinued Medications Generic Name Dose Route Start Last Admin Trade Name Freq PRN Reason Stop Dose Admin Iohexol 100 ml 05/05/25 18:30 05/05/25 18:31 Iohexol 350 Mg/Ml 100 Ml Infus..Btl IV 05/05/25 18:31 70 ml ONCE ONE Administration Ketorolac Tromethamine 30 mg 05/05/25 19:28 05/05/25 19:38 Ketorolac Tromethamine 30 Mg/Ml Vial IM 05/05/25 19:29 30 mg ONCE ONE Administration Lidocaine 1 patch 05/05/25 19:28 05/05/25 19:38 Lidocaine 4 % Patch Adh..Patch TRANSDERMA 05/05/25 19:29 1 patch ONCE ONE Administration Protocol Methocarbamol 750 mg 05/05/25 19:28 05/05/25 19:39 Methocarbamol 750 Mg Tablet PO 05/05/25 19:29 750 mg ONCE ONE Administration Medical Decision Making Medical Decision Making MDM Narrative: 7:30 PM 05/05/2025 (Meme Sims NP): Upon my initial assessment of this patient, she appears well, answers all questions appropriately. She has a nonfocal neurological examination. 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 Account Development Associate are equal bilaterally, strength is equal bilaterally, 5/5. I did note however that she has limited range of motion of the left shoulder, explicitly with forward flexion. The symptoms began after she felt that she slept wrong on her shoulder, and she felt that she progressively developed arm weakness. However given the clinical examination, I did proceed with CTA of the head, neck. 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 For less than 50% stenosis of the carotids, she should not have symptoms. Therefore, at this time we will proceed with treatment for a left shoulder sprain/frozen shoulder. The x-ray of the shoulder shows degenerative changes of the acromioclavicular joint. I have ordered for her to receive Robaxin, Toradol and a Lidoderm patch. We will reassess. She has presumptively told me that she can not stay in the hospital overnight because she takes care of her . 8:37 PM 05/05/2025 (Meme Sims NP): Upon my reassessment, range of motion has significantly improved. She reports significant improvement, and is able to tell me that the shoulder is the location of the discomfort. She now has almost full range of motion with forward flexion. Strength remains intact. Likely an acute muscle sprain, we will discharge home with oral muscle relaxers, instructions for oral NSAID use outpatient, and recommendations to follow up with PCP for PT referral. Patient is agreeable, given return precautions to the ED for which she is agreeable. Differential Diagnosis Differential Diagnoses: The differential diagnosis associated with the presentation includes CVA, TIA, muscle spasm, frozen shoulder Admission/Observation Consideration of admission/observation: Escalation of care including admission/observation considered (Not indicated at this time. ) Lab Data MDM Lab Attestation statement: I reviewed the patient's lab results. (Overall reassuring) 05/05/25 13:43 05/05/25 13:43 Labs: Lab Results 05/05/25 Range/Units 13:43 WBC 5.2 (4.8-10.8) X10*3/uL RBC 3.59 L (4.20-5.50) X10*6/uL Hgb 11.2 L (12.0-16.0) g/dl Hct 34.6 L (37.0-47.0) % MCV 96.4 (80.0-98.0) fL MCH 31.2 (27.0-33.0) pg MCHC 32.4 (31.0-35.0) g/dl RDW 13.8 (11.0-16.0) % Plt Count 318 D (160-400) X10*3/uL MPV 9.4 (9.4-12.3) fL Immature Gran % (Auto) 0.2 (0.0-0.4) % Neut % (Auto) 57.2 (45-73) % Lymph % (Auto) 21.5 (20-40) % [place] % (Auto) 9.2 (2-11) % Eos % (Auto) 10.7 H (0-4) % Baso % (Auto) 1.2 (0-2) % Lymph # (Auto) 1.1 L (1.2-4.9) X10*3/uL [place] # (Auto) 0.5 (0.1-1.2) X10*3/uL Eos # (Auto) 0.6 H (0.0-0.4) X10*3/uL Baso # (Auto) 0.1 (0.0-0.2) X10*3/uL Abs Immat Gran (auto) 0.01 (0.00-0.03) X10*3/uL Absolute Neuts (auto) 3.0 (2.0-8.3) x10*3/uL Absolute Nucleated RBC 0.000 (0.0-0.012) X10*3/uL Nucleated RBC % (auto) 0.0 (0.0-0.2) /100WBC PT 12.4 (11.2-13.5) SEC INR 1.0 (0.9-1.1) APTT 27.0 (26.7-34.1) SEC Sodium 145 (135-145) mmol/L Potassium 4.1 (3.3-5.1) mmol/L Chloride 112 H (96-108) mmol/L Carbon Dioxide 26 (22-29) mmol/L Anion Gap 11 L (12-20) BUN 27 H (9-16) mg/dL Creatinine 1.01 (0.5-1.4) mg/dL Estim Creat Clear Calc 40.1 Estimated GFR 52 Random Glucose 74 (60-115) mg/dL Calcium 8.8 (8.4-10.2) mg/dL Total Bilirubin 0.7 (0.0-1.0) mg/dL AST 24 (5-31) U/L ALT 14 (0-31) U/L Alkaline Phosphatase 136 H (39-117) U/L Troponin I High Sens < 2.7 (<3.5-17.0) ng/L Total Protein 6.2 L (6.5-8.0) g/dL Albumin 3.8 (3.5-5.0) g/dL Independent Interpretation I performed an independent interpretation of an: EKG Interpretation: Rate: 80 Rhythm: NSR [place]: 55/-34/33, left axis deviation Normal P waves. Normal MARLO. Normal QRS complex. ST T wave : no dep, elevation qTC: 415 prior studies:similar The study has been interpreted contemporaneously by me. Radiology Impression Discussion of test interpretation with radiology: I have reviewed the radiologist's reading. Radiologist Impression: CTA head/Neck IMPRESSION: 1. CT angiography neck demonstrates atherosclerotic vascular disease with 50% stenosis on the right and less than 50% stenosis on the left. 2. Small focal calcified plaque of proximal segment vertebral artery. 3. No intracranial large vessel occlusion. CT/CT head/brain wo IV con IMPRESSION: No acute intracranial abnormality. IMPRESSION: 1. No acute findings Independent Historian Clinical information obtained from an independent historian. History obtained from or confirmed by: Other (Family member.) External Record Review External record reviewed: Office record and Outpatient record Chronic Conditions Patient?s care impacted by: Other (MS) Social Determinants Patient?s care significantly limited by Social Determinants of Health including: Problems related to primary support group Discharge Plan Discharge Clinical Impression: Acute pain of left shoulder, Abnormal CT scan Patient Disposition: Home, Self-Care Instructions: Shoulder Pain (ED) Additional Instructions: As we discussed, your seen in the ER today for evaluation of left arm and shoulder pain, and difficulty with your strength. You had a CT scan of her head, and neck. The results are listed below for your convenience, they were overall reassuring with there is some atherosclerotic disease. Please discuss this further with your PCP. You also had an EKG, which was reassuring. Your labs were reassuring as well. The x-ray of the shoulder shows evidence of degenerative changes of the shoulder joint. To treat your pain in the ER, we gave you a Toradol injection for pain, a pain patch called Lidoderm, and a muscle relaxer called for Robaxin. I have prescribed the Lidoderm patches, and the muscle relaxer to your pharmacy. I have also sent a prescription for ibuprofen. Please use these medications in conjunction to help with the discomfort. Additionally, please follow up with the PCP within the next 1-3 days to discuss the CT results, and a referral to physical therapy. With any worsening complaints at any time, please seek re-evaluation in the ED. Prescriptions: New methocarbamol 500 mg tablet 1,000 mg PO QID PRN (Reason: spasms) 5 Days Qty: 28 0RF lidocaine [Lidoderm] 5 % adhesive patch,medicated 1 patch topical DAILY 7 Days Qty: 15 0RF Rx Instructions: leave on most painful area for up to 12 hrs ibuprofen 600 mg tablet 600 mg PO Q8H PRN (Reason: fever or pain) 7 Days Qty: 20 0RF No Action amlodipine [Norvasc] 2.5 mg tablet 2.5 mg PO DAILY Qty: 30 0RF alendronate 70 mg tablet 70 mg PO QWEEK ferrous sulfate 325 mg (65 mg iron) tablet 325 mg PO DAILY cholecalciferol (vitamin D3) 25 mcg (1,000 unit) capsule 25 mcg PO DAILY oxybutynin chloride 15 mg tablet extended release 24hr 15 mg PO DAILY Qty: 90 1RF Referrals: Jorge Sage PA [Primary Care Provider, Internal Medicine] Interventions: ED Discharge Assessment Last Done: 05/05/25 21:10 Discharge Date/Time: 05/05/25 21:17 Print Language: [place]
[2025-05-05 14:04] LABS: MANUAL DIFF FLAG NO
[2025-05-05 14:05] LABS: Hematocrit 34.6 % (37.0-47.0); Hemoglobin 11.2 g/dl (12.0-16.0); Imm Gran Abs Auto 0.01 X10*3/uL (0.00-0.03); Imm Gran Pct Auto 0.2 % (0.0-0.4); Lymphocytes Absolute Auto 1.1 X10*3/uL (1.2-4.9); Mean Corpuscular HGB Conc 32.4 g/dl (31.0-35.0); Mean Corpuscular Hemoglobin 31.2 pg (27.0-33.0); Mean Corpuscular Volume 96.4 fL (80.0-98.0); NRBC Abs Auto 0.000 X10*3/uL (0.0-0.012); NRBC Pct Auto 0.0 /100WBC (0.0-0.2); Platelet Count 318 X10*3/uL (160-400); Red Blood Count 3.59 X10*6/uL (4.20-5.50); White Blood Count 5.2 X10*3/uL (4.8-10.8)
[2025-05-05 14:15] LABS: INTERNATIONAL NORM RATIO 1.0 (0.9-1.1); Prothrombin Time 12.4 SEC (11.2-13.5)
[2025-05-05 14:18] LABS: Partial Thromboplastin Time 27.0 SEC (26.7-34.1)
[2025-05-05 14:21] LABS: Alanine Aminotransferase 14 U/L (0-31); Albumin Level 3.8 g/dL (3.5-5.0); Alkaline Phosphatase 136 U/L (39-117); Anion Gap 11 (12-20); Aspartate Amino Transferase 24 U/L (5-31); Blood Urea Nitrogen 27 mg/dL (9-16); Calcium 8.8 mg/dL (8.4-10.2); Carbon Dioxide 26 mmol/L (22-29); Chloride 112 mmol/L (96-108); Creatinine Clr Calc Pharmacy 40.1; Estimated Glomerular Filt Rate 52; Potassium 4.1 mmol/L (3.3-5.1); Sodium 145 mmol/L (135-145); Total Protein 6.2 g/dL (6.5-8.0)
[2025-05-05 14:31] LABS: Troponin-I High Sensitivity < 2.7 ng/L (<3.5-17.0)
[2025-05-05] MEDS: iohexoL 350 MG/ML 100 ML INFUS..BTL IV (18:31)
[2025-05-05 19:10] VITALS: BP 152/71; PULSE 61; RESP 20; TEMP 36.6; O2SAT 98
[2025-05-05] MEDS: Lidocaine 4 % Patch ADH..PATCH 1 PATCH TRANSDERMA (19:38)
[2025-05-05 21:09] VITALS: BP 178/89; PULSE 64; RESP 18; TEMP 36.7; O2SAT 99
[2025-05-05 21:10] VITALS: BP 178/89; PULSE 64; RESP 18; TEMP 36.7; O2SAT 99
--- OUTSIDE RECORDS SUMMARY | 2025-05-05 23:06 | XMS_ITS | Clinical Summary ---
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
--- OUTSIDE RECORDS SUMMARY | 2025-05-05 23:06 | XMS_ITS | Clinical Summary ---
Author Organization [address] Address [address] [place] [address] [place] [address] Phone Care Team Providers Care Inductor Tester Name Role Phone Jorge Sage Primary Care Provider [phone] Allergies Active Allergy Reactions Criticality Noted Date [...] % gel Apply to toenails once daily 9 Active cyanocobalamin (VIT B-12) 1,000 mcg tablet extended release ER tablet Take 1 Tab by mouth daily. Active hydrocortisone 0.5 % topical cream Apply small amount to affected area, bid 4 Active EPINEPHrine (EpiPen 2-Louis) 0.3 mg/0.3 mL injection Inject 0.3 mg into the muscle as needed for Other (anaphylactic reaction). 2-pack. Fill with whichever brand is covered by insurance. 8 Active ferrous sulfate 325 mg (65 mg iron) EC tablet Take 1 Tab by mouth daily. 8 Active oxyBUTYnin XL (DITROPAN-XL) 10 mg 24 hr tablet Take 15 mg by mouth. 1 Active alendronate (FOSAMAX) 70 mg tablet Take 1 tablet (70 mg total) by mouth every 7 (seven) days. Take in the morning with a full glass of water, on an empty stomach, and do not take anything else by mouth or lie down for the next 30 min. 12 tablet 1 5 Active amLODIPine (NORVASC) 2.5 mg tablet Take 1 tablet (2.5 mg total) by mouth 1 (one) time each day. 90 tablet 1 5 Active triamcinolone (KENALOG) 0.025 % cream Apply thin layer to affected area BID for 2 weeks then stop 30 g 5 Active EPINEPHrine (neffy) 1 mg/spray (0.1 mL) spray,non-aeros ol Administer 1 mg into affected nostril(s) if needed (anaphylaxis). 1 each 3 5 Active gabapentin (NEURONTIN) 300 mg capsule Take 1 capsule (300 mg total) by mouth 2 (two) times a day. 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 Incoordination 08/31/2021 Major depression, single episode 08/31/2021 Oral phase dysphagia 08/31/2021 Orthostatic hypotension 08/31/2021 Overactive bladder 08/31/2021 Sepsis 08/31/2021 Systemic inflammatory respon se syndrome (SIRS) due to non-infectious process without acute organ dysfunction 08/31/2021 Undernutrition 08/31/2021 Urinary tract infectious disease [...] Encounters Date Type Department Care Team Description 05/05/2025 Telephone Adult Medicine [address] [phone] Jorge Sage PA 04/21/2025 10:00 AM EST Office Visit Adult Medicine [address] [phone] Jorge Sage PA Bilateral impacted cerumen (Primary Dx) 04/20/2025 Telephone Adult Medicine [address] [phone] Jorge Sage PA 03/19/2025 2:30 PM EDT Office Visit [facility] Hematology Oncology [address] [place] [phone] Alexi Davidson MD Iron deficiency anemia secondary to inadequate dietary iron intake (Primary Dx) 03/17/2025 Results Follow-Up Adult Medicine [address] [phone] Jorge Sage PA 03/17/2025 Results Follow-Up Adult Medicine [address] [phone] Ericka Katz PA 03/16/2025 2:00 PM EDT Office Visit Adult Medicine [address] [phone] Ericka Katz PA Angular cheilitis (Primary Dx); Skin lesion; Essential hypertension 03/16/2025 Telephone [facility] Hematology Oncology [address] [place] [address] Alexi Davidson MD 03/16/2025 Telephone Adult Medicine [address] [phone] Jorge Sage PA 03/12/2025 Telephone Adult Medicine [address] [phone] Jorge Sage PA 02/25/2025 2:00 PM EDT - 02/25/2025 11:59 PM EDT Hospital Encounter Radiology Department - [address] [phone] Encounter for screening mammogram for breast cancer Discharge Disposition: Home or Self Care 02/17/2025 3:00 PM EDT Office Visit Adult [address] [phone] Ericka Katz PA Herpes zoster without complication (Primary Dx); Need for prophylactic vaccination and inoculation against influenza 02/17/2025 Telephone Adult Medicine [address] [phone] Jorge Sage PA from Last 3 Months Immunizations Immunization Administration Dates Next Due Hepatitis B (Bpafjts-V-Rphzd , Recombivax HB-Adult) 19yo and older 11/13/2001,07/09/2001,05/29/2001 [...] ,03/30/2007,04/28/2006,04/04/2005 Influenza, Unspecified 03/09/2021 PPD Test 09/08/2021,09/01/2021 [facility] SARS-CoV-2 COVID-19, mRNA, LNP-S, preservative free 11/14/2021,08/07/2020,07/09/2020 [...] pertussis (Boostrix; Adacel) 7yo and older 12/26/2021 Zoster Live 11/22/2011 Zoster recombinant (Shingrix ) 19yo and older 01/18/2024,11/14/2021 Surgical History Surgery Date Site/Laterality Comments TUBAL LIGATION PROCEDURE: HISTORICAL TUBAL LIGATION OTHER SURGICAL HISTORY PROCEDURE: HISTORY OTHER; COMMENT: 1999 gastric stapling COLONOSCOPY 12/16/2007 PROCEDURE: CT COLONOSCOPY FLX DX W/COLLJ SPEC WHEN PFRMD; COMMENT: Negative COLONOSCOPY 12/16/07 PROCEDURE: HISTORICAL COLONOSCOPY; COMMENT: normal FLEXIBLE SIGMOIDOSCOPY 09/08/15 PROCEDURE: CT SIGMOIDOSCOPY FLX DX W/COLLJ SPEC BR/WA IF PFRMD; COMMENT: normal OTHER SURGICAL HISTORY 11/19/17 [facility] PROCEDURE: CT EGD BALLOON DILATION ESOPHAGUS <30 MM DIAM; COMMENT: 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 For example, children's service worker or elderly care for an older adult? [...] Sign Reading Time Taken Comments Blood Pressure 131/64 04/21/2025 10:12 AM EST Pulse 67 04/21/2025 10:12 AM EST Temperature 36.2 C (97.1 F) 04/21/2025 10:12 AM EST Respiratory Rate 14 04/21/2025 10:12 AM EST Oxygen Saturation 97% 04/21/2025 10:12 AM EST Inhaled Oxygen Concentration - - Weight 63.1 kg (139 lb 3.2 oz) 04/21/2025 10:12 AM EST Height 167.6 cm (5' 6 ) 04/21/2025 10:12 AM EST Body Mass Index 22.47 04/21/2025 10:12 AM EST Plan of Treatment Upcoming Encounters Date Type Department Care Team (Late st Contact Info) Description 07/08/2025 10:45 AM EST Office Visit Adult Medicine [address] [phone] Jorge Sage PA [address] [place] [phone] 09/17/2025 2:30 PM EDT Office Visit [facility] Hematology Oncology [address] [place] [phone] Alexi Davidson MD [address] [place] [phone] Health Maintenance Due Date Last Done Comments Medicare Annual Wellness Visit 10/01/2024 10/02/2023 COVID-19 Vaccine ( season) 2025 03/09/2023, 04/12/2022, 11/14/2021, Additional history exists Falls Risk Assessment 09/30/2025 09/30/2024, 024 Social Influencers of Health Screening 09/30/2025 09/30/2024 Hypertension/CHF/CAD Annual BMP Blood Test 03/16/2026 03/16/2025, 07/03/2024, 02/28/2024 Cholesterol Screening (Lipid Panel) 03/16/2030 03/16/2025, 02/28/2024, 09/04/2022 DTaP,Tdap,and Td Vaccines (3 - Td or Tdap) 12/27/2031 12/26/2021, 10/18/2012 Osteoporosis Screening (Bone Density Screening) 02/25/2032 02/24/2022, 04/15/2018 Hepatitis B Vaccines Completed 11/13/2001, 07/09/2001, 05/29/2001 Pneumococcal Vaccine: 50+ Years Completed 06/25/2015, 10/15/2007 RSV Immunization Adult Patients Completed 01/18/2024 Zoster Vaccines Completed 01/18/2024, 10/27, 11/22/2011 Depression Screening Completed 09/30/2024, 10/02/19 24 Influenza Vaccine Completed 02/17/2025, , 03/09/2023, Additional [...] Procedure Name Priority Date/Time Associated Diagnosis Comments CBC WITH AUTO DIFFERENTIAL Routine 03/16/2025 1:32 PM EDT Iron deficiency anemia due to chronic blood loss CBC AND DIFFERENTIAL Routine 03/16/2025 1:32 PM EDT Iron deficiency anemia due to chronic blood loss FERRITIN Routine 03/16/2025 1:32 PM EDT Iron deficiency anemia due to chronic blood loss IRON AND TIBC Routine 03/16/2025 1:32 PM EDT Iron deficiency anemia due to chronic blood loss VITAMIN D 25 HYDROXY Routine 03/16/2025 1:07 PM EDT Vitamin D deficiency CBC WITH AUTO DIFFERENTIAL Routine 03/16/2025 1:07 PM EDT Age-related osteoporosis without current pathological fracture Vitamin D deficiency Multiple sclerosis Iron deficiency anemia due to chronic blood loss Essential hypertension Depression, unspecified depression type Acute kidney injury ([facility]/HCC V24) Major depressive disorder with single episode, remission status unspecified Orthostatic hypotension LIPID PANEL WITH REFLEX TO DIRECT LDL Routine 03/16/2025 1:07 PM EDT Age-related osteoporosis without current pathological fracture Vitamin D deficiency Multiple sclerosis Iron deficiency anemia due to chronic blood loss Essential hypertension Depression, unspecified depression type Acute kidney injury (CMS/HCC V24) Major depressive disorder with single episode, remission status unspecified Orthostatic hypotension COMPREHENSIVE METABOLIC PANEL Routine 03/16/2025 1:07 PM EDT Age-related osteoporosis without current pathological fracture Vitamin D deficiency Multiple sclerosis Iron deficiency anemia due to chronic blood loss Essential hypertension Depression, unspecified depression type Acute kidney injury (CMS/HCC V24) Major depressive disorder with single episode, remission status unspecified Orthostatic hypotension CBC AND DIFFERENTIAL Routine 03/16/2025 1:07 PM EDT Age-related osteoporosis without current pathological fracture Vitamin D deficiency Multiple sclerosis Iron deficiency anemia due to chronic blood loss Essential hypertension Depression, unspecified depression type Acute kidney injury (CMS/HCC V24) Major depressive disorder with single episode, remission status unspecified Orthostatic hypotension IRON AND TIBC Routine 03/16/2025 1:07 PM EDT Anemia, unspecified MG MAMMO DIGITAL SCREENING W AMRIK BILAT Routine 02/25/2025 2:15 PM EDT Encounter for screening mammogram for breast cancer DEPRESSION SCREENING Routine 10/02/2023 FALLS RISK ASSESSMENT Routine 10/02/2023 DXA BONE DENSITY STUDY 1+ SITS AXIAL [...] Relevant to Health Maintenance Results * (ABNORMAL) CBC auto differential (03/16/2025 1:32 PM EDT) Only the most recent of2 resultswithin the time period is included. WBC 6.7 4.8 - 10.8 K/mcL LAB HEMETOLOGY METHOD 03/16/2025 4:31 PM EDT [facility] RBC 3.70(L) 3.80 - 4.80 M/mcL LAB HEMETOLOGY METHOD 03/16/2025 4:31 PM EDT [facility] Hemoglobin 11.4(L) 11.5 - 16.0 g/dL LAB [facility] Hematocrit 35.5 35.0 - 47.0 % LAB HEMETOLOGY METHOD 03/16/2025 4:31 PM EDT [facility] MCV 95.4 79.0 - 98.0 FL LAB HEMETOLOGY METHOD 03/16/2025 4:31 PM EDT [facility] MCH 30.6 27.0 - 32.0 pcg LAB HEMETOLOGY METHOD 03/16/2025 4:31 PM EDT [facility] MCHC 32.1 32.0 - 37.0 g/dL LAB HEMETOLOGY METHOD 03/16/2025 4:31 PM EDT [facility] RDW 13.7 11.0 - 15.0 % LAB HEMETOLOGY METHOD 03/16/2025 4:31 PM EDT [facility] Platelets 300 130 - 400 K/mcL LAB HEMETOLOGY METHOD 03/16/2025 4:31 PM EDT [facility] MPV 10.2 7.0 - 11.0 FL LAB HEMETOLOGY METHOD 03/16/2025 4:31 PM EDT [facility] NRBC 0.0 <1.0 % LAB HEMETOLOGY METHOD 03/16/2025 4:31 PM EDT [facility] NRBC Absolute 0.00 <0.10 K/mcL LAB HEMETOLOGY METHOD 03/16/2025 4:31 PM EDT [facility] Neutrophils Relative 57.4 % LAB HEMETOLOGY METHOD 03/16/2025 4:31 PM EDT [facility] Lymphocytes Relative 22.4 % LAB HEMETOLOGY METHOD 03/16/2025 4:31 PM EDT [facility] Monocytes Relative 10.9 % LAB HEMETOLOGY METHOD 03/16/2025 4:31 PM EDT [facility] Eosinophils Relative 8.5 % LAB HEMETOLOGY METHOD 03/16/2025 4:31 PM EDT [facility] Basophils Relative 0.7 % LAB HEMETOLOGY METHOD 03/16/2025 4:31 PM EDT [facility] Immature Granulocytes Relative 0.1 % LAB HEMETOLOGY METHOD 03/16/2025 4:31 PM EDT [facility] Neutrophils Absolute 3.83 1.50 - 7.00 K/mcL LAB HEMETOLOGY METHOD 03/16/2025 4:31 PM EDT [facility] Lymphocytes Absolute 1.50 1.00 - 5.00 K/mcL LAB HEMETOLOGY METHOD 03/16/2025 4:31 PM EDT [facility] Monocytes Absolute 0.73 0.20 - 1.00 K/mcL LAB HEMETOLOGY METHOD 03/16/2025 4:31 PM EDT [facility] Eosinophils Absolute 0.57(H) 0.00 - 0.50 K/mcL LAB HEMETOLOGY METHOD 03/16/2025 4:31 PM EDT [facility] Basophils Absolute 0.05 0.00 - 0.20 K/mcL LAB HEMETOLOGY METHOD 03/16/2025 4:31 PM EDT [facility] Immature Granulocytes Absolute 0.01 0.00 - 0.03 K/mcL LAB HEMETOLOGY METHOD 03/16/2025 4:31 PM EDT [facility] Blood Venous blood specimen / Unknown Venipuncture / Unknown 03/16/2025 1:32 PM EDT 03/16/2025 1:32 PM EDT Alexi Davidson MD LAB BLOOD ORDERABLES Final Result [facility] [address] [place] [address], * Iron and TIBC (03/16/2025 1:32 PM EDT) Only the most recent of2 resultswithin the time period is included. Iron 54 40 - 150 mcg/dL LAB CHEMISTRY METHOD 03/16/2025 5:10 PM EDT [facility] TIBC 280 250 - 450 mcg/dL LAB CHEMISTRY METHOD 03/16/2025 5:10 PM EDT [facility] Iron Saturation 19 15 - 50 % LAB CHEMISTRY METHOD 03/16/2025 5:10 PM EDT [facility] Blood Venous blood specimen / Unknown Venipuncture / Unknown 03/16/2025 1:32 PM EDT 03/16/2025 1:32 PM EDT Alexi Davidson MD LAB BLOOD ORDERABLES Final Result Performing Organization Address City/[facility]/ZIP Co de Phone Number [facility] [address] [place] [address], [place] [phone] * Ferritin (03/16/2025 1:32 PM EDT) Pathologist [facility] Ferritin 71 8 - 252 ng/mL LAB CHEMISTRY METHOD 03/16/2025 5:10 PM EDT [facility] Blood Venous blood specimen / Unknown Venipuncture / Unknown 03/16/2025 1:32 PM EDT 03/16/2025 1:32 PM EDT Alexi Davidson MD LAB BLOOD ORDERABLES Final Result Performing Organization Address [facility]/ZIP Co de Phone Number [facility] [address] [place] [address], [place] [phone] * Lipid panel with reflex to direct LDL (03/16/2025 1:07 PM EDT) Cholesterol 138 0 - 200 mg/dL LAB CHEMISTRY METHOD 03/16/2025 4:55 PM EDT [facility] Triglycerides 67 0 - 150 mg/dL LAB CHEMISTRY METHOD 03/16/2025 4:55 PM EDT [facility] HDL 64 >=40 mg/dL LAB CHEMISTRY METHOD 03/16/2025 4:55 PM EDT [facility] LDL Calculated 61 0 - 100 mg/dL LAB CHEMISTRY METHOD 03/16/2025 4:55 PM EDT [facility] Comment:Estimated LDL Calcul ated using equation: Total cholesterol - HDL cholesterol - (Triglycerides/5) VLDL Cholesterol Asael 13.4 mg/dL LAB CHEMISTRY METHOD 03/16/2025 4:55 PM EDT [facility] Non HDL Chol. (LDL+VLDL) 74 <145 mg/dL LAB CHEMISTRY METHOD 03/16/2025 4:55 PM EDT [facility] Chol/HDL Ratio 2.2 0.0 - 4.4 LAB CHEMISTRY METHOD 03/16/2025 4:55 PM EDT [facility] Blood Venous blood specimen / Unknown Venipuncture / Unknown 03/16/2025 1:07 PM EDT 03/16/2025 1:07 PM EDT Jorge CRUZ LAB BLOOD ORDERABLES Tiffanie l Result Performing Organization Address City/[facility]/ZIP Co de Phone Number [facility] [address] [place] [address], [place] [phone] * Vitamin D 25 hydroxy (03/16/2025 1:07 PM EDT) [facility] Vit D, 25-Hydroxy 51.1 30.0 - 80.0 ng/mL LAB CHEMISTRY METHOD 03/16/2025 5:51 PM EDT [facility] Blood Venous blood specimen / Unknown Venipuncture / Unknown 03/16/2025 1:07 PM EDT 03/16/2025 1:07 PM EDT Jorge CRUZ LAB BLOOD ORDERABLES Tiffanie l Result Performing Organization Address City/[facility]/ZIP Co de Phone Number [facility] [address] [place] [address], [place] [phone] * (ABNORMAL) Comprehensive metabolic panel (03/16/2025 1:07 PM EDT) [facility] Sodium 141 133 - 145 mmol/L LAB CHEMISTRY METHOD 03/16/2025 4:55 PM [facility] Potassium 4.3 3.5 - 5.5 mmol/L LAB CHEMISTRY METHOD 03/16/2025 4:55 PM [facility] Chloride 109 96 - 110 mmol/L LAB CHEMISTRY METHOD 03/16/2025 4:55 PM [facility] CO2 29 21 - 32 mmol/L LAB CHEMISTRY METHOD 03/16/2025 4:55 PM [facility] Anion Gap 3 3 - 11 LAB CHEMISTRY METHOD 03/16/2025 4:55 PM [facility] Glucose 79 70 - 100 mg/dL LAB CHEMISTRY METHOD 03/16/2025 4:55 PM [facility] BUN 24 5 - 25 mg/dL LAB CHEMISTRY METHOD 03/16/2025 4:55 PM [facility] Creatinine 0.86 0.50 - 1.10 mg/dL LAB CHEMISTRY METHOD 03/16/2025 4:55 PM [facility] eGFR 68 >=60 mL/min/1. 73m2 LAB CHEMISTRY METHOD 03/16/2025 4:55 PM [facility] Comment:Calculation based on the Chronic Kidney Disease Epidemiology Collaboration (CKD-EPI) equation refit without adjustment for race. BUN/Creatinine Ratio 27.9 LAB CHEMISTRY METHOD 03/16/2025 4:55 PM [facility] Calcium 9.1 8.5 - 10.5 mg/dL LAB CHEMISTRY METHOD 03/16/2025 4:55 PM [facility] AST (SGOT) 19 10 - 42 unit/L LAB CHEMISTRY METHOD 03/16/2025 4:55 PM [facility] ALT (SGPT) 19 10 - 60 unit/L LAB CHEMISTRY METHOD 03/16/2025 4:55 PM [facility] Alkaline Phosphatase 146(H) 42 - 121 unit/L LAB CHEMISTRY METHOD 03/16/2025 4:55 PM EDT [facility] Total Protein 6.5 6.0 - 8.0 g/dL LAB CHEMISTRY METHOD 03/16/2025 4:55 PM EDT [facility] Albumin 3.8 3.2 - 5.0 g/dL LAB CHEMISTRY METHOD 03/16/2025 4:55 PM EDT [facility] Total Bilirubin 0.6 0.0 - 1.4 mg/dL LAB CHEMISTRY METHOD 03/16/2025 4:55 PM EDT [facility] Blood Venous blood specimen / Unknown Venipuncture / Unknown 03/16/2025 1:07 PM EDT 03/16/2025 1:07 PM EDT Jorge CRUZ LAB BLOOD ORDERABLES Tiffanie l Result [facility] [address] [place] [address], * MG Mammo Digital Screening w Amrik bilat (02/25/2025 2:15 PM EDT) Anatomical Region Laterality Modality Breast Bilateral Mammography 02/26/2025 12:5 0 PM EDT Impressions 02/26/2025 12:54 PM EDT Benign. BI-RADS CATEGORY: 1 - NEGATIVE RECOMMENDATION: Screening bilateral mammogram is recommended in 1 year. Mammo Location: [facility], [address] [place] [address], [address], . -------- FINAL REPORT -------- Dictated By: Danielle Jackson Dictated Date: 02/26/2025 12:50 ET Assigned Physician: Danielle Jackson Reviewed and Electronically Signed By: Danielle Jackson Signed Date: 02/26/2025 12:54 ET Workstation ID: [id number] Transcribed By: Self Edit Transcribed Date: 02/26/2025 12:50 ET Narrative 02/26/2025 12:54 PM EDT CLINICAL: 84 years old, Female, routine annual exam. COMPARISON: Mammograms dating back to 01/27/2022 with most recent of 02/13/2024. TECHNIQUE: Bilateral MLO and CC views were obtained digitally with 3-D mammogram (digital breast tomosynthesis). Computer-aided detection was utilized in evaluation of this exam (CAD). FINDINGS: There is no evidence of suspicious mass or architectural distortion. No worrisome calcifications are evident. There has been no significant change from prior exam(s). BREAST DENSITY: C - The breasts are heterogeneously dense which may obscure small masses. Procedure Note Danielle Jackson MD - 02/26/2025 CLINICAL: 84 years old, Female, routine annual exam. COMPARISON: Mammograms dating back to 01/27/2022 with most recent of02/13/2024. TECHNIQUE: Bilateral MLO and CC views were obtained digitally with 3-Dmammogram (digital breast tomosynthesis). Computer-aided detection wasutilized in evaluation of this exam (CAD). FINDINGS: There is no evidence of suspicious mass or architectural distortion. Noworrisome calcifications are evident. There has been no significantchange from prior exam(s). BREAST DENSITY: C - The breasts are heterogeneously dense which mayobscure small masses. IMPRESSION: Benign. BI-RADS CATEGORY: 1 - NEGATIVE RECOMMENDATION: Screening bilateral mammogram is recommended in 1 year. Mammo Location: [facility], [address] [place] [address], [facility], . -------- FINAL REPORT -------- Dictated By: Danielle Jackson Dictated Date: 02/26/2025 12:50 ET Assigned Physician: Danielle Jackson Reviewed and Electronically Signed By: Danielle Jackson Signed Date: 02/26/2025 12:54 ET Workstation ID: [id number] Transcribed By: Self Edit Transcribed Date: 02/26/2025 12:50 ET Jorge RCUZ IMG BI PROCEDURES Final R esult * Falls Risk Assessment (10/02/2023) Falls Risk Assessment abstracted us Historical Provider HEALTH MAINTENANCE Final Result * Depression Screening (10/02/2023) Pathologist [facility] Depression Screening abstracted us Historical Provider MD HEALTH MAINTENANCE Final Result * DXA BONE DENSITY STUDY 1+ [...] should be classified as having osteoporosis. [facility] Department of Internal Medicine recommends using [...] [place] should beclassified as having osteoporosis. [facility] Department of Internal Medicine recommendsusing National [...] of fracture risk by FRAX. 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
--- OUTSIDE RECORDS SUMMARY | 2025-05-05 23:07 | XMS_ITS | Encounter Summary ---
Author Organization [facility] [place] [address] Care Team Providers Care Farm Mortgage Agent Name Role Phone Jorge Sage Primary Care Provider [phone] Reason for Visit * Reason Onset Date Comments Fatigue 05/05/2025 Encounter Details Date Type Department Care Team (Late st Contact Info) Description 05/05/2025 Telephone Adult Medicine [address] [phone] Jorge Sage PA [address] [place] [phone] Social History Tobacco Use Types Packs/Day Years [...] care for your loved ones. For example, childrens club attendant or elderly care for an older adult? [...] on file documented as of this encounter Progress Notes * Peg Wharton RN - 05/05/2025 9:17 AM EST Spoke with the pt Started a couple days ago and had to take care of husbands medical needs Started with a cramp in the left side of neck and left arm. Unable to turn the head to the left Not able to open the door Was also getting tingling from the knee down Significantly weaker than the right side Speech is clear, no slurred speech Its not getting better Using patches and aspercreme Has not seen any change in outward appearance Does have MS and thinks it is acting up Advised ER for eval and to call after for follow up * Miesha Pro - 05/05/2025 8:37 AM EST Patient call requires triage: Symptoms patient is presenting: weakness on left side of arm and legs How long has patient had these symptoms?: 4 days For ALL patients calling to schedule any appointment (routine, sick visit, follow up, consult, etc.) in the outpatient setting please ask the following questions: Do you have fever of higher than 101, sore throat with difficulty swallowing or severe shortness ofbreath? no If YES to any of these above symptoms, send a message to triage and do not book. Red dot. If no, an audio or video visit should be booked. Have you had close contact with someone with Coronavirus in the last 14 days? no Have you traveled abroad? no Have you traveled recently to another state outside of [place], [place], [place], [place], [place], [place], [place]? no o If yes, did you quarantine for 14 days or have a negative covid test? no If yes to any of the above, patient is not to be scheduled in office until after 14 day quarantine or negative covid test. If pain or injury related was it due to an accident at work or from a motor vehicle accident? If yes, date of accident/Injury: No If yes, gather 3rd constitution party insurance information Third Republican Information: not applicable PCP: NANCY Chapman Payor: MEDICARE / Plan: MEDICARE PART A & B / Product Type: Medicare / documented in this encounter Plan of Treatment Upcoming Encounters Date Type Department Care Team (Late st Contact Info) Description 07/08/2025 10:45 AM EST Office Visit Adult Medicine [facility] [address] [place] [phone] Jorge Sage PA [address] [place] [phone] 09/17/2025 2:30 PM EDT Office Visit [facility] Hematology Oncology [address] [place] [phone] Alexi Davidson MD [address] [place] [phone] documented as of this encounter Visit Diagnoses Not on filedocumented in this encounter Additional Health Concerns Assessment Noted Time PHQ-9 Depression Total Score: 0 10/01/19 9:51 AM EDT A fall risk assessment has been complete d for the patient 09/30/2024 9:51 AM EDT documented as of this encounter Care Teams Farm Mortgage Agent Relationship Specialty Start Date End Date Jorge Sage PA [address] [place] [phone] PCP - General Internal Medicine 06/06/24 documented as of this encounter
--- OUTSIDE RECORDS SUMMARY | 2025-05-05 23:07 | XMS_ITS | Encounter Summary ---
Author Organization [facility] [place] [address] Care Team Providers Care Day Spa Manager Name Role Phone Jorge Sage Primary Care Provider [phone] Encounter Details Date Type Department Care Team (Late st Contact Info) Description 03/17/2025 Results Follow-Up Adult Medicine [address] [phone] Ericka Katz PA [address] [place] [phone] Social History Tobacco Use Types Packs/Day Years [...] care for your loved ones. For example, childcare attendant or elderly care for an older [...] as of this encounter Plan of Treatment Upcoming Encounters Date Type Department Care Team (Late st Contact Info) Description 07/08/2025 10:45 AM EST Office Visit Adult [address] [phone] Jorge Sage PA [address] [place] [phone] 09/17/2025 2:30 PM EDT Office Visit [facility] Hematology Oncology [address] [place] [address] Alexi Davidson MD [address] [place] [address] documented as of this encounter Visit Diagnoses Not on filedocumented in this encounter Additional Health Concerns Assessment Noted Time PHQ-9 Depression Total Score: 0 10/01/19 9:51 AM EDT A fall risk assessment has been complete d for the patient 09/30/2024 9:51 AM EDT documented as of this encounter Care Teams Day Spa Manager Relationship Specialty Start Date End Date Jorge Sage PA [address] [place] [phone] PCP - General Internal Medicine 06/06/24 documented as of this encounter
--- OUTSIDE RECORDS SUMMARY | 2025-05-05 23:08 | XMS_ITS | Encounter Summary ---
Author Organization [facility] [place] [place] [address] Care Team Providers Care Outside B2B Sales Name Role Phone Jorge Sage Primary Care Provider [phone] Encounter Details Date Type Department Care Team ([facility] Contact Info) Description 03/17/2025 Results Follow-Up Adult Medicine [address] [phone] Jorge Sage PA [address] [place] [phone] Social History Tobacco Use Types Packs/Day Years [...] Encounters Date Type Department Care Team (Late Contact Info) Description 07/08/2025 10:45 AM EST Office Visit Adult Medicine [address] [phone] Jorge Sage PA [address] [place] [phone] 09/17/2025 2:30 PM EDT Office Visit [facility] Hematology Oncology [address] [place] [address] Alexi Davidson MD [address] [place] [address] documented as of this encounter Visit Diagnoses Not on filedocumented in this encounter Additional Health Concerns Assessment Noted Time PHQ-9 Depression Total Score: 0 10/01/19 9:51 AM EDT A fall risk assessment has been complete d for the patient 09/30/2024 9:51 AM EDT documented as of this encounter Care Teams Outside B2B Sales Relationship Specialty Start Date End Date Jorge Sage PA [address] [place] [phone] PCP - General Internal Medicine 06/06/24 documented as of this encounter
--- OUTSIDE RECORDS SUMMARY | 2025-05-05 23:08 | XMS_ITS | Patient Health Record ---
Author Organization [facility] Address [address] [facility] [facility] [address] [place] [address] Care Team Providers Care Metaphysician Name Role Phone Jorge Al Primary Care Provider Unavail TIFFANY Cannon Unavailable [phone] Allergies Allergen (clinical drug ingredient) Drug/Non Drug [...] W/U Status Risk Notes Problem Multiple sclerosis (30243759) Multiple sclerosis (G35) Active confirmed Problem Acquired hammer toe of right foot (6049970393615 105) Other hammer toe(s) (acquired), right foot (M20.41) Active confirmed Problem Acquired hammer toe of left foot (4125019998244 103) Other hammer toe(s) (acquired), left foot (M20.42) Active confirmed Vital Signs Heart Rate 74 /min 02/04/2025 Temperature 96.8 degrees Fahrenheit 02/04/2025 Respiratory Rate 16 /min 02/04/2025 Height 66in in 02/04/2025 Weight 147.4 lbs 02/04/2025 BMI 23.79 kg/m2 02/04/2025 Encounters Encounter Location Date Provider Diagnosis [facility] [address] 06/06/2024 TIFFANY WINSLOW Onychomycosis B35.1 ; Multiple sclerosis G35 ; [place] of toe L84 ; Other hammer toe(s) (acquired), left foot M20.42 ; Other hammer toe(s) (acquired), right foot M20.41 and Pain in right toe(s) M79.674 [facility] [address] 07/25/2024 TIFFANY WINSLOW Mass of soft tissue of foot M79.89 ; Benign skin lesion L98.9 ; Pain in right foot M79.671 and Onychomycosis B35.1 [facility] [address] 08/08/2024 TIFFANY WINSLOW Mass of soft tissue of foot M79.89 ; Benign skin lesion L98.9 and Pain in right foot M79.671 [facility] [address] 09/29/2024 TIFFANY WINSLOW Onychomycosis B35.1 ; Multiple sclerosis G35 ; Other hammer toe(s) (acquired), left foot M20.42 ; Other hammer toe(s) (acquired), right foot M20.41 and Pain in right toe(s) M79.674 [facility] [address] 02/04/2025 TIFFANY WINSLOW Onychomycosis B35.1 ; Multiple sclerosis G35 ; Other hammer toe(s) (acquired), left foot M20.42 ; Other hammer toe(s) (acquired), right foot M20.41 and Pain in right toe(s) M79.674 [facility] [address] 06/03/2024 TIFFANYTONA WINSLOW [facility] [address] 07/30/2024 TIFFANY WINSLOW Assessments Encounter Date [...] 06/06/2024 Multiple sclerosis (ICD-10 - G35) 06/06/2024 [place] of toe (ICD-10 - L84) We discussed [...] Name:TIFFANY WINSLOW, 06/08/2025 11:00:00 AM, [address] [facility] [address], [place], [address], Insurance Providers Payer Name Payer Address Payer Phone Subscriber Number Group Number Insured Name Patient Relationship to Insured Coverage Start Date Coverage End Date [employer] of [place] [address] [place] SCHNEIDER [phone] [id number] Deloris Mesa Self - patient is the insured FOR LIFE [address] [place] [address] [id number] Deloris Mesa Self - patient is the [...]
== END 2025-05-05 21:17 | disposition home or self-care (01) ==
PROVIDERS: Physician Assistant; Emergency Provider Emergency Medicine; PCP Physician Assistant Medical
DX: M25.512 Pain in left shoulder (principal); M54.2 Cervicalgia; R20.0 Anesthesia of skin; R53.1 Weakness; R94.31 Abnormal electrocardiogram [ECG] [EKG]; I10 Essential (primary) hypertension; G35.D Multiple sclerosis, unspecified; Z79.899 Other long term (current) drug therapy
CPT/HCPCS: 36415; 70450; 70496; 70498; 73030; 80053; 84484; 85025; 85610; 85730; 93005; 96372; 99285; J1885; Q9967

== ENCOUNTER → 2025-05-05 13:20 | Outpatient (BNV) | payer MEDICARE, OTHER, SELFPAY | PROVIDERS: PCP Physician Assistant Medical; Visit Provider Radiology Diagnostic Radiology | DX: I65.23 Occlusion and stenosis of bilateral carotid arteries (principal); I67.81 Acute cerebrovascular insufficiency; R20.2 Paresthesia of skin; R53.1 Weakness; M25.512 Pain in left shoulder | CPT/HCPCS: 70450 ==

== ENCOUNTER → 2025-05-05 13:20 | Outpatient (BNV) | payer MEDICARE, OTHER, SELFPAY | PROVIDERS: PCP Physician Assistant Medical; Visit Provider Internal Medicine Cardiovascular Disease | DX: R94.31 Abnormal electrocardiogram [ECG] [EKG] (principal); R20.2 Paresthesia of skin | CPT/HCPCS: 93010 ==